=== PATIENT | female | born 1935 | race Caucasian/White ===

== ENCOUNTER → 2016-09-04 | Outpatient (CLI) | payer OTHER ==
[~2016-09-04] MED LIST: APRACLONIDINE 1% 0.1 ML OPH ONE; D-ME473S18 PO; OPHTHALMIC IRRIG SOLUTION 120 ML ONE; PHENYLephrine 10% 5 ML OPH ONE; PROPARACAINE 0.5% 15 ML OPH ONE; THYROID MEDICATION; TROPICAMIDE 1% 3 ML OPH ONE
== END | disposition home or self-care (01) ==
LOC: RAD 09:48
PROVIDERS: ATTEND Ophthalmology
DX: H26.9 Unspecified cataract (principal)
CPT/HCPCS: 66821; Z7610

== ENCOUNTER 2016-09-09 13:57 | Emergency (ER) | payer OTHER ==
[~2016-09-09] VITALS: Ht 152.4 cm; Wt 58.0 kg
[~2016-09-09 13:57] MED LIST changes: -APRACLONIDINE 1% 0.1 ML OPH ONE; -OPHTHALMIC IRRIG SOLUTION 120 ML ONE; -PHENYLephrine 10% 5 ML OPH ONE; -PROPARACAINE 0.5% 15 ML OPH ONE; -TROPICAMIDE 1% 3 ML OPH ONE
[2016-09-09 14:00] VITALS: Ht 152.4 cm; Wt 58.0 kg
[2016-09-09] MEDS ORDERED: MECLIZINE 12.5 MG TAB PO ONE (14:30)
[2016-09-09 14:47] LABS: ADD SCAN DIFF NO
[2016-09-09 14:49] LABS: ABNORMAL IP MESSAGE 1; HEMATOCRIT 37.8 % (37.0-47.0); HEMOGLOBIN 12.3 g/dl (12.0-16.0); MEAN CORPUSCULAR HEMOGLOBIN 33.9 pg (29.0-33.0); MEAN CORPUSCULAR HGB CONC 32.5 g/dl (32.0-37.0); MEAN CORPUSCULAR VOLUME 104.1 fl (82.0-101.0); MEAN PLATELET VOLUME 11.5 fl (7.4-10.4); PLATELET COUNT 74 10^3/UL (140-415); RED BLOOD COUNT 3.63 10^6/ul (4.20-5.40); RED CELL DISTRIBUTION WIDTH 13.1 % (11.5-14.5); WHITE BLOOD COUNT 5.3 10^3/ul (4.8-10.8)
--- NOTE | 2016-09-09 15:02 | RADRPT ---
PROCEDURE: XR Chest. CLINICAL INDICATION: Possible Stroke TECHNIQUE: Single frontal view of the chest was obtained. COMPARISON: Chest x-ray from 02/01/2016 FINDINGS: The heart and mediastinum are within normal limits. The aortic arch is calcified. There is stable mild prominence of interstitial markings, likely due to chronic / senescent changes. There are no focal infiltrates. There is no significant pleural effusion or pneumothorax. IMPRESSION: No focal infiltrates or effusions. Aortic atherosclerosis. RPTAT: EE Physician Haritha Date Time Electronically viewed and signed by Cyrus Keller Physician on 09/09/2016 15:01 /
[2016-09-09 15:04] LABS: INR 1.23; PROTIME 15.6 Sec (12.2-14.2); PT RATIO 1.2
[2016-09-09 15:05] LABS: PARTIAL THROMBOPLASTIN TIME 31.6 Sec (25.0-35.0)
--- NOTE | 2016-09-09 15:05 | RADRPT ---
PROCEDURE: CT Head without. CLINICAL INDICATION: Possible stroke. TECHNIQUE: The study was performed utilizing a multi-slice, multidetector CT scanner. Direct spira l 1 mm axial sections were obtained through the head without the use of intravenous contrast materia l. 1 or more of the following dose reduction techniques were utilized: Automated exposure control, adjustment of the mA and/or kV according to patient's size, iterative reconstruction technique. Co pallavi and sagittal reformations were obtained. The images were reviewed on a PACS workstation. RADIATION DOSE: CTDIvol: 43.9 mGyDLP: 630.2 mGy-cm COMPARISON: 03/06/2014 FINDINGS: There is no intracranial hemorrhage, extra-axial fluid collection, mass lesion, midline shift or hyd rocephalus. There is mild prominence of the cerebral sulci, lateral and third ventricles. There is mild periventricular and subcortical white matter hypodensity. There is mild arteriosclerotic calc ification of the parasellar internal carotid arteries. The waite-white matter differentiation is pre served. The basal cisterns are patent. The midline structures are intact. The orbits, calvarium a nd extracranial soft tissues are normal in appearance. The visualized paranasal sinuses, mastoid air cells and middle ear cavities are normally aerated. IMPRESSION: 1. No acute intracranial abnormality. No intracranial hemorrhage, extra-axial fluid collection, ma ss lesion or hydrocephalous. 2. Mild peripheral and central cerebral volume loss. 3. Mild periventricular and subcortical white matter hypodensity, likely related to chronic microan giopathic changes. 4. No CT evidence of infarct at this time. If clinical concern for infarct, MRI is recommended for further evaluation. The above findings were discussed with Patient's physician Elijah Tatum by telephone on 09/09/2016 3 :04:14 PM. RPTAT: HGAS .Randell Olivia MD, Date Time Electronically viewed and signed by .Randell Olivia MD, MD on 09/09/2016 15:05 .S/
[2016-09-09 15:27] LABS: BARBITURATES NEGATIVE (NEGATIVE); BENZODIAZEPINES NEGATIVE (NEGATIVE); CANNABINOIDS NEGATIVE (NEGATIVE); COCAINE NEGATIVE (NEGATIVE); OPIATES NEGATIVE (NEGATIVE)
[2016-09-09 15:28] LABS: ADD UMIC YES; URINE BILIRUBIN (Dip) NEGATIVE (NEGATIVE); URINE BLOOD (Dip) TRACE (NEGATIVE); URINE COLOR LT. YELLOW (YELLOW); URINE GLUCOSE (Dip) NEGATIVE (NEGATIVE); URINE KETONES (Dip) NEGATIVE (NEGATIVE); URINE LEUKOCYTE ESTERASE (Dip) 1+ (NEGATIVE); URINE NITRITE (Dip) NEGATIVE (NEGATIVE); URINE TOTAL PROTEIN (Dip) NEGATIVE (NEGATIVE); URINE UROBILINOGEN (Dip) 1.0 E.U./dL (0.1-1.0)
[2016-09-09 15:58] LABS: BACTERIA,URINE FEW; SQUAMOUS EPITHELIAL CELL,UR MANY; URINE RBCS 0-2 /HPF (0)
[2016-09-09] MEDS ORDERED: NITROFURANTOIN (SR) 100 MG CAP PO ONE (16:00)
[2016-09-09] MEDS ORDERED: NITR-58 PO (16:36)
[2016-09-09 16:38] LABS: CHLORIDE 113 mmol/L (97-110)
[2016-09-09 16:39] LABS: POTASSIUM 3.9 mmol/L (3.5-5.1); SODIUM 141 mmol/L (135-144)
[2016-09-09 16:40] LABS: EOSINOPHILS # 0.2 10^3/ul (0.0-0.5); LYMPHOCYTES # 1.9 10^3/ul (0.8-2.9); MONOCYTE # 0.4 10^3/ul (0.3-0.9); NEUTROPHIL # 2.9 10^3/ul (1.6-7.5)
[2016-09-09 16:41] LABS: CREATININE 0.57 mg/dl (0.44-1.00)
[2016-09-09 16:42] LABS: ANION GAP 5 (8-16); BLOOD UREA NITROGEN 11 mg/dl (7-20); CALCIUM 8.8 mg/dl (8.4-10.2); CARBON DIOXIDE 27 mmol/L (21-31); GLUCOSE 117 mg/dl (70-220)
[2016-09-09 16:54] LABS: TROPONIN-I < 0.012 ng/ml (0.00-0.12)
--- NOTE | 2016-09-09 17:06 | ERD ---
ER Documentation Chief Complaint Date/Time DATE: 09/09/16 TIME: 17:06 Chief Complaint dizziness and nausea today HPI Patient is a 72-year-old female with thyroid disease who presents with dizziness. She felt like the room was spinning. The symptoms started last night. The symptoms come and go. She feels better now. She was complaining of a headache to the top of her head. Upon review of old medical records this is the patient's 10th visit to the ER since 2012. ROS All systems reviewed and are negative except as per history of present illness. Medications Home Meds Active Scripts Nitrofurantoin Monohyd Macrocr* (Macrobid*) 100 Mg Capsr, 100 MG PO BID for 7 Days, CAP Prov:MARILYN COOK MD 09/09/16 Dextromethorphan Hb-Promethazine Hcl (Promethazine DM Syrup) 473 Ml Syrup, 5 ML PO Q6H Y for COUGH, #4 OZ Prov:ELLIOT FRIEDMAN PA-C 02/01/16 Reported Medications [Thyroid Medication] No Conflict Check 11/14/15 Allergies Allergies: Coded Allergies: Penicillins (Verified Allergy, Unknown, dizzy, 02/01/16) PMhx/Soc History of Surgery: Yes (CATARACT, GALL BLADDER) Anesthesia Reaction: No Hx Neurological Disorder: No Hx Respiratory Disorders: No Hx Cardiac Disorders: No Hx Psychiatric Problems: No Hx Miscellaneous Medical Probl: No Hx Alcohol Use: No Hx Substance Use: No Hx Tobacco Use: No Smoking Status: Never smoker FmHx Family History: No diabetes Physical Exam Vitals Vital Signs Date Time Temp Pulse Resp B/P Pulse Ox O2 Delivery O2 Flow Rate FiO2 09/09/16 17:15 98.2 64 16 118/59 100 Room Air 09/09/16 16:45 78 16 126/53 98 Room Air 09/09/16 14:00 98.1 82 18 137/63 99 Physical Exam Const: No acute distress Head: Atraumatic Eyes: Normal Conjunctiva ENT: Normal External Ears, Nose and Mouth. Neck: Full range of motion..~ No meningismus. Resp: Clear to auscultation bilaterally Cardio: Regular rate and rhythm, no murmurs Abd: Soft, non tender, non distended. Normal bowel sounds Skin: No petechiae or rashes Back: No midline or flank tenderness Ext: No cyanosis, or edema Neur: Awake and alert, no slurred speech, cranial nerves II through XII intact, strength is 5 out of 5 in all 4 extremities, gait is normal Psych: Normal Mood and Affect Result Diagram: 09/09/16 1429 09/09/16 1550 Results 24 hrs Laboratory Tests Test 09/09/16 14:20 09/09/16 14:29 09/09/16 15:50 Urine Color LT. YELLOW Urine Clarity SLIGHTLY CLOUDY Urine pH 6.0 Urine Specific Belt <=1.005 Urine Ketones NEGATIVE Urine Nitrite NEGATIVE Urine Bilirubin NEGATIVE Urine Urobilinogen 1.0 E.U./dL Urine Leukocyte Esterase 1+ Urine Microscopic RBC 0-2/HPF Urine Microscopic WBC 5-10/HPF Urine Squamous Epithelial Cells MANY Urine Bacteria FEW Urine Hemoglobin TRACE Urine Glucose NEGATIVE% Urine Total Protein NEGATIVE Urine Opiates Screen NEGATIVE Urine Barbiturates NEGATIVE Urine Amphetamines Screen NEGATIVE Urine Benzodiazepines Screen NEGATIVE Urine Cocaine Screen NEGATIVE Urine Cannabinoids NEGATIVE White Blood Count 5.310^3/ul Red Blood Count 3.6310^6/ul Hemoglobin 12.3g/dl Hematocrit 37.8% Mean Corpuscular Volume 104.1fl Mean Corpuscular Hemoglobin 33.9pg Mean Corpuscular Hemoglobin Concent 32.5g/dl Red Cell Distribution Width 13.1% Platelet Count 7410^3/UL Mean Platelet Volume 11.5fl Neutrophils % 54.0% Lymphocytes % 35.0% Monocytes % 7.0% Eosinophils % 4.0% Neutrophils # 2.910^3/ul Lymphocytes # 1.910^3/ul Monocytes # 0.410^3/ul Eosinophils # 0.210^3/ul Prothrombin Time 15.6Sec Prothrombin Time Ratio 1.2 INR International Normalized Ratio 1.23 Activated Partial Thromboplast Time 31.6Sec Sodium Level 141mmol/L Potassium Level 3.9mmol/L Chloride Level 113mmol/L Carbon Dioxide Level 27mmol/L Anion Gap 5 Blood Urea Nitrogen 11mg/dl Creatinine 0.57mg/dl Glucose Level 117mg/dl Hemoglobin A1c 5.2% Calcium Level 8.8mg/dl Troponin I < 0.012ng/ml Current Medications Medications (Trade) Dose Ordered Sig/Gio Route PRN Reason Start Time Stop Time Status Last Admin Dose Admin Meclizine HCl (Antivert) 25 mg ONCE ONCE PO 09/09/16 14:30 09/09/16 14:31 DC 09/09/16 14:38 Nitrofurantoin Macrocrystals (Macrobid) 100 mg ONCE ONCE PO 09/09/16 16:00 09/09/16 16:01 DC 09/09/16 16:03 Procedures/[facility] EKG read by me: Rate/Rhythm: Regular rate and rhythm at a rate of 68 Intervals: Normal Impression: No evidence of ischemia or arrhythmia CT brain scan shows no acute process per radiology. Patient is a 80-year-old female presents with dizziness. The patient was found to have acute cystitis and will be treated with Macrobid for a one-week course. At this point I doubt stroke. CT scan of the brain showed no intra-cranial mass or hemorrhage. EKG shows no signs of ischemia. Laboratory studies were basically normal. I doubt stroke, meningitis, or other serious etiology and I believe outpatient management is appropriate but the patient should follow-up with the primary doctor within 24-48 hours for reevaluation. Departure Diagnosis: Primary Impression: Cystitis Additional Impression: Dizziness Condition: Fair Patient Instructions: Cystitis, Dizziness, Unk Cause Additional Instructions: Llame al doctor MAANA y adelita raiza SARKIS PARA DENTRO DE 1-2 CRUZ.Dgale a la secretaria que nosotros le instruimos hacer esta sarkis.Avise o llame si kaba condicin se empeora antes de la sarkis. Regresa aqui si peor o no mejor. MARILYN COOK MD September 09, 2016 17:06
[2016-09-09 17:15] VITALS: BP 118/59; PULSE 64; RESP 16; TEMP 98.2
== END 2016-09-09 17:23 | disposition home or self-care (01) ==
LOC: E/R 13:57
DX: N30.90 Cystitis, unspecified without hematuria (principal); R40.2252 Coma scale, best verbal response, oriented, at arrival to emergency department; R40.2142 Coma scale, eyes open, spontaneous, at arrival to emergency department; R40.2362 Coma scale, best motor response, obeys commands, at arrival to emergency department; R07.9 Chest pain, unspecified
CPT/HCPCS: 36415; 70450; 71010; 80048; 80307; 81001; 83036; 84484; 85025; 85610; 85730; 93005; Z7502; Z7610

== ENCOUNTER 2017-01-30 09:06 | Inpatient (IN) | payer OTHER ==
[~2017-01-30] VITALS: Ht 152.4 cm; Wt 60.0 kg
[2017-01-30] VITALS (25 sets, daily range): BP systolic 115–168; BP diastolic 52–75; PULSE 69–102; RESP 12–28; Ht 152.4 cm; Wt 60.0 kg
--- NOTE | 2017-01-30 08:55 | HPN ---
Date/Time of Note Date/Time of Note DATE: 01/30/17 TIME: 08:55 Interval H&P Admission Note Pt. seen H&P reviewed: No system changes CHEPE CEBALLOS MD Jan 30, 2017 08:55
[~2017-01-30 09:06] MED LIST changes: +CEFAZOLIN 1 GM INJ ONE; +EPHEDrine SULFATE 50 MG/5 ML SYG ONE; +NITR-58 PO
[2017-01-30] MEDS ORDERED: LATA2.5D2 BOTH EYES (09:39)
[2017-01-30] MEDS ORDERED: BRIM15DR7 BOTH EYES (09:40)
[2017-01-30] MEDS ORDERED: LEVO112T42 PO (09:40)
[2017-01-30] MEDS ORDERED: MELO-210 PO (09:41)
[2017-01-30] MEDS ORDERED: morphine SULFATE/PF (10 MG/10 ML) INJ ONE (10:46)
[2017-01-30] MEDS ORDERED: MIDAZOLAM 1 MG/ML 2 ML INJ ONE (10:46)
[2017-01-30] MEDS ORDERED: PROPOFOL 20 ML ONE (10:46)
[2017-01-30] MEDS ORDERED: METOCLOPRAMIDE 10 MG INJ ONE ×2 (10:46→12:49)
[2017-01-30] MEDS ORDERED: ROPIVACAINE 0.5 % 30 ML VIAL ONE (10:46)
[2017-01-30] MEDS ORDERED: ONDANSETRON 4 MG INJ ONE (10:46)
[2017-01-30] MEDS ORDERED: TRANEXAMIC ACID 600 MG in SOD CHLORIDE 0.9% 100 ML IVPB ONE ×2 (11:00→15:00)
[2017-01-30] MEDS ORDERED: POLYMYXIN/BACITRACIN 1L IRRIG ONE (11:21)
[2017-01-30] MEDS ORDERED: POLYMYXIN B 500000 UNIT INJ ONE (11:21)
[2017-01-30] MEDS ORDERED: BACITRACIN 50000 UNITS INJ ONE (11:23)
[2017-01-30] MEDS ORDERED: hydrALAzine 20 MG INJ ONE (12:44)
[2017-01-30] MEDS ORDERED: ONDANSETRON 4 MG INJ IV PRN (13:30)
[2017-01-30] MEDS ORDERED: MEPERIDINE 25 MG INJ IV PRN (13:30)
[2017-01-30] MEDS ORDERED: LABETALOL HCL 20MG INJ IV PRN (13:30)
[2017-01-30] MEDS ORDERED: HYDROmorphONE (0.2 MG/ML) 10ML SYG IV PRN ×3 (13:30)
[2017-01-30] MEDS ORDERED: EPHEDrine SULFATE 50 MG/5 ML SYG IV PRN (13:30)
[2017-01-30] MEDS ORDERED: DIPHENHYDRAMINE 50 MG INJ IV PRN (13:30)
[2017-01-30] MEDS ORDERED: METOCLOPRAMIDE 10 MG INJ IV PRN (13:30)
[2017-01-30] MEDS ORDERED: hydrALAzine 20 MG INJ IV PRN (13:30)
--- NOTE | 2017-01-30 14:31 | OPR ---
Date/Time of Note Date/Time of Note DATE: 01/30/17 TIME: 14:28 Operative Report Preoperative Diagnosis See below Postoperative Diagnosis Below Surgeon see signature line Traffic Coordinator See below Anesthesia Type: spinal Estimated Blood Loss: 100 - 150 ml's Transfusion none Specimen Bone Grafts/Implants [place] triathlon implants Complications none Procedure Description DATE OF OPERATION: January 30, 2017 PREOPERATIVE DIAGNOSIS: [Left] knee osteoarthritis. POSTOPERATIVE DIAGNOSIS: Left knee osteoarthritis. OPERATION PERFORMED: Left total knee replacement. SURGEON: Todd Ceballos MD CDL BULK DRIVER: Janell Martinez ANESTHESIOLOGIST: Payton Leone ANESTHESIA: General endotracheal anesthesia with spinal anesthetic and an adductor canal block. ESTIMATED BLOOD LOSS: 150 cc Implants used: [place] [employer] INDICATIONS FOR PROCEDURE: This is a 81-year-old female who has had progressive pain in the left knee. The patient has failed nonoperative treatment and now presents for elective total knee replacement. Risks and benefits were discussed with the patient, risks including but not limited to infection, bleeding, blood clots, dislocation, fracture, knee stiffness, nerve damage, blood vessel damage, along with other medical, anesthetic and surgical complications were discussed. Informed consent was obtained. DESCRIPTION OF PROCEDURE: The patient's correct extremity was identified in the preoperative area. The patient was brought back to the operating room where a spinal anesthetic was placed followed by an adductor canal block. The correct extremity was then prepped and draped in the standard sterile manner. A timeout was performed. Esmarch was used to exsanguinate. The thigh tourniquet was inflated to 250 mmHg. I then made a standard midline incision for approaching the knee. I went through skin and subcutaneous tissue, made a medial parapatellar arthrotomy. Then, flexed the knee and introduced an intramedullary alignment guide. Distal femoral cut was made and then the extramedullary alignment guide was used to make the tibial cut. Flexion and extension gaps were checked. There were symmetric. The knee went from full extension to full flexion. I then turned my attention to the patella. I used an [id number] mill type cutting guide, cut the patellar to appropriate thickness and sized the patella. I then trialed the patella. The patella tracked well without any external pressure. I then made the peg holes for the femoral trial. Punched the tibia. I took out all trial components. Thoroughly irrigated the bony surfaces, dried them with a lap sponge. I then proceeded to cement the tibia, femur and patellar components. A trial insert was used till the cement hardened. After the cement hardened, I thoroughly irrigted the knee. The knee was well balanced. I then let down the tourniquet, obtained adequate hemostasis. I thoroughly irrigated the knee. I then impacted the appropriate all poly insert until it locked into place and I had full range of motion with just a jog of opening with varus and valgus stress. I then turned my attention to closure. I closed the medial parapatellar arthrotomy with interrupted #1 Vicryl, subcutaneous tissue was closed with 2-0 Vicryl, skin with aidee. Dry sterile dressings were applied. The patient had good perfusion to her foot with a 2+ dorsalis pedis pulse. She was then extubated and transported to recovery in stable condition. TODD CEBALLOS MD Jan 30, 2017 14:31
[2017-01-30] MEDS ORDERED: NALOXONE (0.4 MG/ML) INJ IV PRN (15:00)
[2017-01-30] MEDS ORDERED: oxyCODONE 5 MG TAB PO PRN (15:00)
[2017-01-30] MEDS ORDERED: DOCUSATE SODIUM 100 MG CAP PO ONE (15:00)
[2017-01-30] MEDS: CEFAZOLIN 1 GM/50 ML (PMX) 50 ML IVPB SCH ×2 (15:30→22:53)
--- NOTE | 2017-01-30 15:54 | RADRPT ---
PROCEDURE: XR Knee. CLINICAL INDICATION: Status post knee replacement TECHNIQUE: AP and lateral view of the left knee were obtained. The images reviewed on a PACS work station. COMPARISON: December 28, 2012 FINDINGS: Complete left knee replacement is identified. Prosthetic components are in appropriate position and alignment. No fractures or destructive lesions are observed. Surgical drain is seen in the knee. Soft tissue air is procedural in nature. IMPRESSION: Status post left knee replacement. Prosthetic components are in appropriate position and alignment. RPTAT: AA .Nicolás Hood MD, MD Date Time Electronically viewed and signed by .Nicolás Hood MD, MD on 01/30/2017 15:54 .P/
[2017-01-30] MEDS: ONDANSETRON 4 MG INJ IV SCH ×2 (17:44→22:53)
[2017-01-30] MEDS: LACTATED RINGER'S 1,000 ML IV SCH (18:04)
[2017-01-30] MEDS: LATANOPROST 0.005% 2.5 ML OPH BOTH EYES SCH (23:59)
[2017-01-30] MEDS: BRIMONIDINE 0.2% 5 ML BTL BOTH EYES SCH (23:59)
[2017-01-31 00:31] VITALS: BP 129/63; RESP 19
[2017-01-31 02:27] VITALS: BP 145/64; RESP 19
[2017-01-31] MEDS: ONDANSETRON 4 MG INJ IV SCH ×2 (03:04→08:34)
[2017-01-31] MEDS: oxyCODONE 5 MG TAB PO PRN ×6 (03:13→20:39)
--- NOTE | 2017-01-31 03:18 | HP ---
DATE OF ADMISSION: 01/30/2017 CHIEF COMPLAINT AND HISTORY OF PRESENT ILLNESS: The patient is a 81-year-old female who is well kn own to me from previous admission back in 2016 when she underwent laparoscopic cholecystectomy and w as incidentally found to have cirrhosis of liver on liver wedge biopsy. The patient also has histor y of hypothyroidism. The patient was being followed by a medical billing clerk as an outpatient as well as h er PMD. The patient has negative ESTEPHANIE screen negative, HIV negative, hepatitis B and C. I met with the patient's daughter today and I found out that the patient used to drink alcohol when she was you ng. The patient used to drink a special form of alcohol called [place] which is even stronger than T equila; that probably is the cause of her cirrhosis of the liver. Patient was seen by Dr. Carpenter as an outpatient due to osteoarthritis of the left knee and underwent left total knee replacement. Patient did have preoperative thrombocytopenia and got clearance from medical billing clerk. The patient di d have postoperative vomiting for which patient received Zofran. The patient denied any hematemesis , no reported ecchymosis. No reported petechial hemorrhage. The patient is breathing comfortably. No reported chest pain or shortness of breath. PAST MEDICAL HISTORY: The patient is status post laparoscopic cholecystectomy and also has history of hypothyroidism. ALLERGIES: PENICILLIN. PAST SURGICAL HISTORY: Patient is status post laparoscopic cholecystectomy as well as right catarac t repair by Dr. Morgan. SOCIAL HISTORY: No history of smoking. History of alcohol abuse as listed above; the patient drank from age 22 to 42 as per the patient's daughter, Trixie. PHYSICAL EXAMINATION: GENERAL: The patient is breathing comfortably. VITAL SIGNS: Temperature 98.2, pulse 95, respirations 14, blood pressure 143/64, O2 saturation 98% on 2 L nasal cannula. HEENT: No eye discharge or redness. NECK: Supple. No mass, no thyromegaly. CHEST: Fairly clear. CARDIOVASCULAR: S1, S2 normal. No murmur. ABDOMEN: Soft, nondistended, nontender. EXTREMITIES: No ankle edema. NEUROLOGIC: No gross focal deficit, although exam was limited due to recent surgery. LABORATORY DATA: TSH 0.1, free T4 1. Sodium 141, potassium 3.9, BUN 11, creatinine 0.5, glucose 94 , AST 58, ALT 49, bilirubin 1.8, cardiolipin antibodies negative, antiphospholipid antibody is negat dionisio. Albumin 3.3. INR 1.2, platelets 81. Hemoglobin 12.8, WBC 4.9. IMPRESSION: 1. Left knee osteoarthritis status post left total knee replacement. 2. Hypothyroidism. 3. 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 PLAN: Patient is admitted on medical floor. Patient has been started on ringer lactate. The patie nt will be given Protonix. The patient will be continued on IV Zofran p.r.n. basis. Will hold off on Lovenox for DVT prophylaxis, will substitute it with Eliquis 2.5 mg b.i.d. for a total of 12 days . Will start it 24 hours after surgery. Plan of care discussed with patient's daughter. We will c radha to monitor her CBC. Will continue to monitor her closely. Dictated By: GURMEET DELCID/DARION Conf#: [id number] DID#: [id number]
[2017-01-31] MEDS: LACTATED RINGER'S 1,000 ML IV SCH ×4 (04:00→16:07)
[2017-01-31 05:18] LABS: BASOPHILS % 0.1 % (0.0-2.0); HEMATOCRIT 34.7 % (37.0-47.0); HEMOGLOBIN 10.9 g/dl (12.0-16.0); LYMPHOCYTES # 0.8 10^3/ul (0.8-2.9); LYMPHOCYTES % 8.5 % (15.0-51.0); MEAN CORPUSCULAR HGB CONC 31.4 g/dl (32.0-37.0); MEAN CORPUSCULAR VOLUME 108.1 fl (82.0-101.0); MEAN PLATELET VOLUME 10.5 fl (7.4-10.4); MONOCYTE # 0.5 10^3/ul (0.3-0.9); MONOCYTES % 5.7 % (0.0-11.0); NEUTROPHIL # 8.1 10^3/ul (1.6-7.5); NEUTROPHILS % 85.3 % (39.0-77.0); PLATELET COUNT 126 10^3/UL (140-415); RED BLOOD COUNT 3.21 10^6/ul (4.20-5.40); RED CELL DISTRIBUTION WIDTH 13.2 % (11.5-14.5); WHITE BLOOD COUNT 9.5 10^3/ul (4.8-10.8)
[2017-01-31 05:57] LABS: CALCIUM 8.8 mg/dl (8.4-10.2); CREATININE 0.62 mg/dl (0.44-1.00); POTASSIUM 4.9 mmol/L (3.5-5.1)
--- NOTE | 2017-01-31 06:00 | PN ---
Date/Time of Note Date/Time of Note DATE: 01/31/17 TIME: 05:57 Assessment/Plan VTE Prophylaxis VTE Prophylaxis Intervention: anti-embolic stocking, other Lines/Catheters IV Catheter Type (from Nrsg): Peripheral IV Urinary Cath still in place: No Subjective 24 Hr Interval Summary Free Text/Dictation Anesthesia note: A 81 year old female s/p left knee arthroscopy under GA, duramorph POD #1 is doing fine, no pain, itching, headache. had zofran at 3 am N/V is controoled now. no back pain . will folow with surgery and hospitalist Exam/Review of Systems Vital Signs Vitals Vital Signs Date Time Temp Pulse Resp B/P Pulse Ox O2 Delivery O2 Flow Rate FiO2 01/31/17 02:27 98.4 79 19 145/64 100 01/30/17 20:00 Nasal Cannula 2.0 Intake and Output 01/30/17 01/30/17 01/31/17 15:00 23:00 07:00 Intake Total 1300 ml 120 ml 170 ml Output Total 550 ml 550 ml 400 ml Balance 750 ml -430 ml -230 ml Results Result Diagram: 01/31/17 0445 Results 24 hrs Laboratory Tests Test 01/31/17 04:45 White Blood Count 9.5 # Red Blood Count 3.21 L Hemoglobin 10.9 L Hematocrit 34.7 L Mean Corpuscular Volume 108.1 H Mean Corpuscular Hemoglobin 34.0 H Mean Corpuscular Hemoglobin Concent 31.4 L Red Cell Distribution Width 13.2 Platelet Count 126 #L Mean Platelet Volume 10.5 H Neutrophils % 85.3 H Lymphocytes % 8.5 L Monocytes % 5.7 Eosinophils % 0.0 Basophils % 0.1 Nucleated Red Blood Cells % 0.0 Neutrophils # 8.1 H Lymphocytes # 0.8 Monocytes # 0.5 Eosinophils # 0.0 Basophils # 0.0 Nucleated Red Blood Cells # 0.0 Medications Medications Current Medications Oxycodone HCl (Roxicodone) 10 mg Q3H PRN PO PAIN LEVEL 4-7 Last administered on 01/31/17t 03:30; Admin Dose 10 MG; Start 01/30/17 at 15:00 Oxycodone HCl (Roxicodone) 5 mg Q3H PRN PO PAIN LEVEL 1-3; Start 01/30/17 at 15:00 Ondansetron HCl 4 mg 4 mg Q6H IV Last administered on 01/31/17 03:04; Admin Dose 4 MG; Start 01/30/17 at 15:00; Stop 01/31/17 at 09:01 Cefazolin Sodium (Ancef 1 Gm/50 ml (Pmx)) 50 ml @ 100 mls/hr Q8H IVPB Last administered on 01/30/17 22:53; Admin Dose 100 MLS/HR; Start 01/30/17 at 15: 00; Stop 01/31/17 at 07:29 Pantoprazole (Protonix Tab) 40 mg DAILY@06 PO ; Start 02/01/17 at 06:00 Docusate Sodium (Colace) 200 mg BID PO ; Start 01/31/17 at 09:00; Stop at 08:59 Senna/Docusate Sodium (Senokot-S) 2 tab BID PRN PO CONSTIPATION; Start at 15:00 Magnesium Hydroxide (Milk Of Mag) 30 ml HS PRN PO CONSTIPATION; Start at 15:00 Naloxone HCl 0.2 mg 0.2 mg Q2M PRN IV DECREASED REPIRATORY RATE; Start at 15:00 Lactated Ringer's (Lr) 1,000 ml @ 100 mls/hr Q10H IV Last administered on 18:04; Admin Dose 100 MLS/HR; Start 01/30/17 at 18:00 Apixaban (Eliquis) 2.5 mg BID PO ; Start 01/31/17 at 20:00; Stop 02/12/17 at 19 :59 Brimonidine Tartrate (Alphagan 0.2%) 1 drop BID BOTH EYES Last administered on 01/30/17 23:59; Admin Dose 1 DROP; Start 01/30/17 at 21:00 Latanoprost (Xalatan) 1 drop BID BOTH EYES Last administered on 01/30/17 23: 59; Admin Dose 1 DROP; Start 01/30/17 at 21:00 Levothyroxine Sodium (Synthroid) 112 mcg DAILY@06 PO ; Start 01/31/17 at 06:00 ACE BABB MD Jan 31, 2017 06:00
[2017-01-31] MEDS: LEVOTHYROXINE 112 MCG TAB PO SCH (06:12)
[2017-01-31] MEDS: CEFAZOLIN 1 GM/50 ML (PMX) 50 ML IVPB SCH (06:15)
[2017-01-31 07:51] VITALS: BP 132/60; RESP 18
[2017-01-31] MEDS: LATANOPROST 0.005% 2.5 ML OPH BOTH EYES SCH ×2 (08:34→20:34)
[2017-01-31] MEDS: BRIMONIDINE 0.2% 5 ML BTL BOTH EYES SCH ×2 (08:34→20:34)
[2017-01-31] MEDS: DOCUSATE SODIUM 100 MG CAP PO SCH ×2 (08:34→20:34)
[2017-01-31] MEDS ORDERED: ENOXAPARIN 30 MG/0.3 ML SYG SC SCH (09:00)
--- NOTE | 2017-01-31 12:13 | PN ---
Date/Time of Note Date/Time of Note DATE: 01/31/17 TIME: 12:11 Assessment/Plan Lines/Catheters IV Catheter Type (from Nrsg): Peripheral IV [place] in Place (from Nrsg): No Assessment/Plan Assessment/Plan POD 1 s/p Left TKA doing well OOB with PT, CPM Eliquis, SCD's for DVT prophylaxis Has some nausea, liquids only today Incentive spirometer d/c montgomery Subjective 24 Hr Interval Summary Complaining of mild pain. Exam/Review of Systems Vital Signs Vitals Vital Signs Date Time Temp Pulse Resp B/P Pulse Ox O2 Delivery O2 Flow Rate FiO2 01/31/17 08:45 Nasal Cannula 2.0 01/31/17 07:51 97.7 85 18 132/60 100 Intake and Output 01/30/17 01/30/17 01/31/17 15:00 23:00 07:00 Intake Total 1300 ml 120 ml 220 ml Output Total 550 ml 550 ml 600 ml Balance 750 ml -430 ml -380 ml Exam Free Text/Dictation Dressing c/d/i. Calf soft Intact motor and sensory function in foot. Foot warm. Results Result Diagram: 01/31/17 0445 01/31/17 0430 CHEPE CEBALLOS MD Jan 31, 2017 12:13
[2017-01-31 16:21] VITALS: BP 140/65; RESP 18
[2017-01-31 19:25] VITALS: BP 118/58; RESP 18
[2017-01-31] MEDS: APIXABAN 5 MG TABLET PO SCH (20:34)
[2017-02-01 02:00] VITALS: BP 145/64; RESP 20
[2017-02-01] MEDS: LACTATED RINGER'S 1,000 ML IV SCH ×3 (02:52→13:12)
[2017-02-01 05:25] LABS: BASOPHILS % 0.3 % (0.0-2.0); EOSINOPHILS # 0.1 10^3/ul (0.0-0.5); EOSINOPHILS % 0.8 % (0.0-7.0); HEMATOCRIT 33.7 % (37.0-47.0); HEMOGLOBIN 10.8 g/dl (12.0-16.0); LYMPHOCYTES # 1.9 10^3/ul (0.8-2.9); LYMPHOCYTES % 17.2 % (15.0-51.0); MEAN CORPUSCULAR VOLUME 109.1 fl (82.0-101.0); MEAN PLATELET VOLUME 10.6 fl (7.4-10.4); MONOCYTE # 1.2 10^3/ul (0.3-0.9); MONOCYTES % 10.5 % (0.0-11.0); NEUTROPHIL # 7.8 10^3/ul (1.6-7.5); NEUTROPHILS % 70.8 % (39.0-77.0); PLATELET COUNT 113 10^3/UL (140-415); RED BLOOD COUNT 3.09 10^6/ul (4.20-5.40); RED CELL DISTRIBUTION WIDTH 13.2 % (11.5-14.5); WHITE BLOOD COUNT 11.1 10^3/ul (4.8-10.8)
[2017-02-01] MEDS: PANTOPRAZOLE (EC) 40 MG TAB PO SCH (05:57)
[2017-02-01 05:58] LABS: CALCIUM 8.6 mg/dl (8.4-10.2); CREATININE 0.74 mg/dl (0.44-1.00); POTASSIUM 4.9 mmol/L (3.5-5.1)
[2017-02-01] MEDS: LEVOTHYROXINE 112 MCG TAB PO SCH (05:58)
[2017-02-01 07:57] VITALS: BP 123/55; RESP 16
[2017-02-01] MEDS: LATANOPROST 0.005% 2.5 ML OPH BOTH EYES SCH ×2 (08:26→20:00)
[2017-02-01] MEDS: DOCUSATE SODIUM 100 MG CAP PO SCH ×2 (08:26→20:00)
[2017-02-01] MEDS: APIXABAN 5 MG TABLET PO SCH ×2 (08:26→20:00)
[2017-02-01] MEDS: BRIMONIDINE 0.2% 5 ML BTL BOTH EYES SCH ×2 (08:26→20:00)
[2017-02-01] MEDS: oxyCODONE 5 MG TAB PO PRN (10:24)
--- NOTE | 2017-02-01 14:04 | PN ---
Date/Time of Note Date/Time of Note DATE: 02/01/17 TIME: 13:56 Assessment/Plan VTE Prophylaxis VTE Prophylaxis Intervention: other Lines/Catheters IV Catheter Type (from Nrs): Peripheral IV Urinary Cath still in place: No Assessment/Plan Assessment/Plan 1. Left knee osteoarthritis status post left total knee replacement. -per Ortho -IV Zofran p.r.n. basis. 2. Hypothyroidism. 3. 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 4. Protonix for GI prophylaxis 5. Eliquis 2.5 mg b.i.d. for a total of 12 days for DVT prophylaxis Plan of care discussed with Dr Santiago/staff/ patient's daughter Subjective 24 Hr Interval Summary Free Text/Dictation afebrile, Left knee cpm noted, c/o left knee pain on movement, daughter at bed sude- all Qs answered, dw staff Respiratory: no complaints Gastrointestinal: no complaints Genitourinary: no complaints Musculoskeletal: bone/joint pain Skin: no complaints Neurologic: no complaints Exam/Review of Systems Vital Signs Vitals Vital Signs Date Time Temp Pulse Resp B/P Pulse Ox O2 Delivery O2 Flow Rate FiO2 02/01/17 08:00 Nasal Cannula 2.0 02/01/17 07:57 99.3 89 16 123/55 94 Intake and Output 01/31/17 01/31/17 02/01/17 15:00 23:00 07:00 Intake Total 1400 ml 1200 ml Output Total 100 ml 100 ml Balance 1300 ml 1100 ml Exam Constitutional: alert, oriented Psych: nl mood/affect Cardiovascular: nl pulses, other (s1s2) Gastrointestinal: non-tender, soft Musculoskeletal: other (sp left knee replacemen- DDI,CSM intact, wond drainage noted) Results Result Diagram: 02/01/174 02/01/174 Results 24 hrs Laboratory Tests Test 02/01/17 04:44 White Blood Count 11.1 H Red Blood Count 3.09 L Hemoglobin 10.8 L Hematocrit 33.7 L Mean Corpuscular Volume 109.1 H Mean Corpuscular Hemoglobin 35.0 H Mean Corpuscular Hemoglobin Concent 32.0 Red Cell Distribution Width 13.2 Platelet Count 113 L Mean Platelet Volume 10.6 H Neutrophils % 70.8 Lymphocytes % 17.2 Monocytes % 10.5 Eosinophils % 0.8 Basophils % 0.3 Nucleated Red Blood Cells % 0.0 Neutrophils # 7.8 H Lymphocytes # 1.9 Monocytes # 1.2 H Eosinophils # 0.1 Basophils # 0.0 Nucleated Red Blood Cells # 0.0 Sodium Level 138 Potassium Level 4.9 Chloride Level 105 Carbon Dioxide Level 33 H Anion Gap 5 L Blood Urea Nitrogen 13 Creatinine 0.74 Glucose Level 89 # Calcium Level 8.6 Medications Medications Current Medications Oxycodone HCl (Roxicodone) 10 mg Q3H PRN PO PAIN LEVEL 4-7 Last administered on 02/01/17 10:24; Admin Dose 10 MG; Start 01/30/17 at 15:00 Oxycodone HCl (Roxicodone) 5 mg Q3H PRN PO PAIN LEVEL 1-3; Start 01/30/17 at 15:00 Pantoprazole (Protonix Tab) 40 mg DAILY@06 PO Last administered on 02/01/17 05:57; Admin Dose 40 MG; Start 02/01/17 at 06:00 Docusate Sodium (Colace) 200 mg BID PO Last administered on 02/01/17 08:26; Admin Dose 200 MG; Start 01/31/17 at 09:00; Stop 02/03/17 at 08:59 Senna/Docusate Sodium (Senokot-S) 2 tab BID PRN PO CONSTIPATION; Start at 15:00 Magnesium Hydroxide (Milk Of Mag) 30 ml HS PRN PO CONSTIPATION; Start at 15:00 Naloxone HCl 0.2 mg 0.2 mg Q2M PRN IV DECREASED REPIRATORY RATE; Start at 15:00 Lactated Ringer's (Lr) 1,000 ml @ 100 mls/hr Q10H IV Last administered on 13:12; Admin Dose 100 MLS/HR; Start 01/30/17 at 18:00 Apixaban (Eliquis) 2.5 mg BID PO Last administered on 02/01/17 08:26; Admin Dose 2.5 MG; Start 01/31/17 at 20:00; Stop 02/12/17 at 19:59 Brimonidine Tartrate (Alphagan 0.2%) 1 drop BID BOTH EYES Last administered on 02/01/17 08:26; Admin Dose 1 DROP; Start 01/30/17 at 21:00 Latanoprost (Xalatan) 1 drop BID BOTH EYES Last administered on 02/01/17 08: 26; Admin Dose 1 DROP; Start 01/30/17 at 21:00 Levothyroxine Sodium (Synthroid) 112 mcg DAILY@06 PO Last administered on 02/01 05:58; Admin Dose 112 MCG; Start 01/31/17 at 06:00 TERRA LI Feb 01, 2017 14:04
[2017-02-01 15:16] VITALS: BP 131/60; RESP 18
[2017-02-01 19:30] VITALS: BP 130/63; RESP 20
[2017-02-02 02:25] VITALS: BP 122/58; RESP 20
[2017-02-02] MEDS: LACTATED RINGER'S 1,000 ML IV SCH ×2 (04:56→16:00)
[2017-02-02] MEDS: PANTOPRAZOLE (EC) 40 MG TAB PO SCH (04:56)
[2017-02-02] MEDS: LEVOTHYROXINE 112 MCG TAB PO SCH (04:56)
[2017-02-02 06:06] LABS: BASOPHILS % 0.4 % (0.0-2.0); EOSINOPHILS # 0.2 10^3/ul (0.0-0.5); EOSINOPHILS % 2.6 % (0.0-7.0); HEMATOCRIT 34.3 % (37.0-47.0); HEMOGLOBIN 11.2 g/dl (12.0-16.0); LYMPHOCYTES # 2.8 10^3/ul (0.8-2.9); LYMPHOCYTES % 30.3 % (15.0-51.0); MEAN CORPUSCULAR HGB CONC 32.7 g/dl (32.0-37.0); MEAN CORPUSCULAR VOLUME 107.2 fl (82.0-101.0); MEAN PLATELET VOLUME 10.8 fl (7.4-10.4); MONOCYTES % 10.8 % (0.0-11.0); NEUTROPHIL # 5.2 10^3/ul (1.6-7.5); NEUTROPHILS % 55.6 % (39.0-77.0); PLATELET COUNT 110 10^3/UL (140-415); RED CELL DISTRIBUTION WIDTH 12.8 % (11.5-14.5); WHITE BLOOD COUNT 9.3 10^3/ul (4.8-10.8)
[2017-02-02 06:41] LABS: CALCIUM 8.1 mg/dl (8.4-10.2); CREATININE 0.67 mg/dl (0.44-1.00); POTASSIUM 4.1 mmol/L (3.5-5.1)
[2017-02-02 07:00] VITALS: BP 126/60; RESP 20
[2017-02-02] MEDS: APIXABAN 5 MG TABLET PO SCH ×2 (08:53→20:10)
[2017-02-02] MEDS: BRIMONIDINE 0.2% 5 ML BTL BOTH EYES SCH ×2 (08:53→20:09)
[2017-02-02] MEDS: DOCUSATE SODIUM 100 MG CAP PO SCH ×2 (08:54→20:09)
[2017-02-02] MEDS: LATANOPROST 0.005% 2.5 ML OPH BOTH EYES SCH ×2 (08:57→20:09)
[2017-02-02] MEDS: MAGNESIUM HYDROXIDE 30ML CUP PO PRN (08:57)
--- NOTE | 2017-02-02 13:04 | PN ---
Date/Time of Note Date/Time of Note DATE: 02/02/17 TIME: 13:03 Assessment/Plan Lines/Catheters IV Catheter Type (from Nrsg): Peripheral IV Casanova in Place (from Nrsg): No Assessment/Plan Assessment/Plan Doing well Discharge to home today if cleared by PT Bijan for 2 weeks CPM for home use. Subjective 24 Hr Interval Summary Complaining of some pain with ambulation. Exam/Review of Systems Vital Signs Vitals Vital Signs Date Time Temp Pulse Resp B/P Pulse Ox O2 Delivery O2 Flow Rate FiO2 02/02/17 07:00 98.9 69 20 126/60 97 02/01/17 22:33 Nasal Cannula 2.0 Intake and Output 02/01/17 02/01/17 02/02/17 15:00 23:00 07:00 Intake Total 800 ml 760 ml 1525 ml Output Total 100 ml 1080 ml Balance 800 ml 660 ml 445 ml Exam Free Text/Dictation Incision c.d.i. No erythema Calf soft and non tender NVI. Foot warm Results Result Diagram: 02/02/17 0449 02/02/17 0449 CHEPE CEBALLOS MD Feb 02, 2017 13:04
[2017-02-02 14:00] VITALS: BP 126/58; RESP 20
--- NOTE | 2017-02-02 17:40 | PN ---
Date/Time of Note Date/Time of Note DATE: 02/02/17 TIME: 17:34 Assessment/Plan VTE Prophylaxis VTE Prophylaxis Intervention: SCD's Lines/Catheters IV [facility] Type [facility] Saline Lock Urinary Cath still in place: No Assessment/Plan Chief Complaint/Hosp Course Pt denies fever, slow progress with PT, ARU eval pending. Problems: Assessment/Plan 1. Left knee osteoarthritis, status post left total knee replacement. Continue Eliquis. A RU eval 2. Hypothyroidism. Continue Synthroid. 3. 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 Further recommendations based on clinical course. Plan of care discussed with Dr. Santiago. Exam/Review of Systems Vital Signs Vitals Vital Signs Date Time Temp Pulse Resp B/P Pulse Ox O2 Delivery O2 Flow Rate FiO2 02/02/17 14:00 98.0 87 20 126/58 98 02/01/17 22:33 Nasal Cannula 2.0 Intake and Output 02/01/17 02/01/17 02/02/17 15:00 23:00 07:00 Intake Total 800 ml 760 ml 1525 ml Output Total 100 ml 1080 ml Balance 800 ml 660 ml 445 ml Exam Constitutional: alert, oriented Head: normocephalic Neck: supple Respiratory: normal air movement Cardiovascular: nl pulses Gastrointestinal: non-tender, soft Musculoskeletal: other (s/p Left total knee replacemet) Extremities: normal pulses Results Result Diagram: 02/02/17 0449 02/02/17 0449 Results 24 hrs Laboratory Tests Test 02/02/17 04:49 White Blood Count 9.3 Red Blood Count 3.20 L Hemoglobin 11.2 L Hematocrit 34.3 L Mean Corpuscular Volume 107.2 H Mean Corpuscular Hemoglobin 35.0 H Mean Corpuscular Hemoglobin Concent 32.7 Red Cell Distribution Width 12.8 Platelet Count 110 L Mean Platelet Volume 10.8 H Neutrophils % 55.6 Lymphocytes % 30.3 Monocytes % 10.8 Eosinophils % 2.6 Basophils % 0.4 Nucleated Red Blood Cells % 0.0 Neutrophils # 5.2 Lymphocytes # 2.8 Monocytes # 1.0 H Eosinophils # 0.2 Basophils # 0.0 Nucleated Red Blood Cells # 0.0 Sodium Level 135 Potassium Level 4.1 Chloride Level 101 Carbon Dioxide Level 28 Anion Gap 10 # Blood Urea Nitrogen 11 Creatinine 0.67 Glucose Level 83 Calcium Level 8.1 L Medications Medications Current Medications Oxycodone HCl (Roxicodone) 10 mg Q3H PRN PO PAIN LEVEL 4-7 Last administered on 02/01/17 10:24; Admin Dose 10 MG; Start 01/30/17 at 15:00 Oxycodone HCl (Roxicodone) 5 mg Q3H PRN PO PAIN LEVEL 1-3; Start 01/30/17 at 15:00 Pantoprazole (Protonix Tab) 40 mg DAILY@06 PO Last administered on 02/02/17 04:56; Admin Dose 40 MG; Start 02/01/17 at 06:00 Docusate Sodium (Colace) 200 mg BID PO Last administered on 02/02/17 08:54; Admin Dose 200 MG; Start 01/31/17 at 09:00; Stop 02/03/17 at 08:59 Senna/Docusate Sodium (Senokot-S) 2 tab BID PRN PO CONSTIPATION; Start at 15:00 Magnesium Hydroxide (Milk Of Mag) 30 ml HS PRN PO CONSTIPATION Last administered on 02/02/17 08:57; Admin Dose 30 ML; Start 01/30/17 at 15:00 Naloxone HCl 0.2 mg 0.2 mg Q2M PRN IV DECREASED REPIRATORY RATE; Start at 15:00 Lactated Ringer's (Lr) 1,000 ml @ 100 mls/hr Q10H IV Last administered on 04:56; Admin Dose 100 MLS/HR; Start 01/30/17 at 18:00 Apixaban (Eliquis) 2.5 mg BID PO Last administered on 02/02/17 08:53; Admin Dose 2.5 MG; Start 01/31/17 at 20:00; Stop 02/12/17 at 19:59 Brimonidine Tartrate (Alphagan 0.2%) 1 drop BID BOTH EYES Last administered on 02/02/17 08:53; Admin Dose 1 DROP; Start 01/30/17 at 21:00 Latanoprost (Xalatan) 1 drop BID BOTH EYES Last administered on 02/02/17 08: 57; Admin Dose 1 DROP; Start 01/30/17 at 21:00 Levothyroxine Sodium (Synthroid) 112 mcg DAILY@06 PO Last administered on 02/02 04:56; Admin Dose 112 MCG; Start 01/31/17 at 06:00 ZAKIYA WERNER Feb 02, 2017 17:40
[2017-02-02 19:25] VITALS: BP 110/53; RESP 20
[2017-02-02] MEDS: SENNA/DOCUSATE NA (8.6MG/50MG) TAB PO PRN (20:10)
[2017-02-03] MEDS: LACTATED RINGER'S 1,000 ML IV SCH ×3 (01:41→22:00)
[2017-02-03 02:15] VITALS: BP 130/61; RESP 19
[2017-02-03 05:30] LABS: CALCIUM 7.9 mg/dl (8.4-10.2); CREATININE 0.68 mg/dl (0.44-1.00); POTASSIUM 4.3 mmol/L (3.5-5.1)
[2017-02-03] MEDS: PANTOPRAZOLE (EC) 40 MG TAB PO SCH (05:34)
[2017-02-03] MEDS: LEVOTHYROXINE 112 MCG TAB PO SCH (05:34)
[2017-02-03 05:44] LABS: BASOPHILS % 0.3 % (0.0-2.0); EOSINOPHILS # 0.2 10^3/ul (0.0-0.5); EOSINOPHILS % 3.3 % (0.0-7.0); HEMATOCRIT 30.7 % (37.0-47.0); HEMOGLOBIN 10.1 g/dl (12.0-16.0); LYMPHOCYTES # 2.2 10^3/ul (0.8-2.9); LYMPHOCYTES % 33.2 % (15.0-51.0); MEAN CORPUSCULAR HEMOGLOBIN 34.8 pg (29.0-33.0); MEAN CORPUSCULAR HGB CONC 32.9 g/dl (32.0-37.0); MEAN CORPUSCULAR VOLUME 105.9 fl (82.0-101.0); MEAN PLATELET VOLUME 10.8 fl (7.4-10.4); MONOCYTE # 0.8 10^3/ul (0.3-0.9); MONOCYTES % 12.4 % (0.0-11.0); NEUTROPHIL # 3.3 10^3/ul (1.6-7.5); NEUTROPHILS % 50.3 % (39.0-77.0); PLATELET COUNT 113 10^3/UL (140-415); RED CELL DISTRIBUTION WIDTH 12.8 % (11.5-14.5); WHITE BLOOD COUNT 6.6 10^3/ul (4.8-10.8)
[2017-02-03 08:15] VITALS: BP 125/59; RESP 16
[2017-02-03] MEDS: APIXABAN 5 MG TABLET PO SCH ×2 (08:29→20:52)
[2017-02-03] MEDS: BRIMONIDINE 0.2% 5 ML BTL BOTH EYES SCH ×2 (08:30→20:51)
[2017-02-03] MEDS: LATANOPROST 0.005% 2.5 ML OPH BOTH EYES SCH ×2 (08:30→20:51)
[2017-02-03] MEDS: SENNA/DOCUSATE NA (8.6MG/50MG) TAB PO PRN (10:51)
[2017-02-03] MEDS: MAGNESIUM HYDROXIDE 30ML CUP PO PRN (10:52)
[2017-02-03] MEDS: oxyCODONE 5 MG TAB PO PRN ×2 (13:16→18:13)
[2017-02-03 14:36] VITALS: BP 126/58; RESP 18
--- NOTE | 2017-02-03 14:53 | PN ---
Date/Time of Note Date/Time of Note DATE: 02/03/17 TIME: 14:51 Assessment/Plan VTE Prophylaxis VTE Prophylaxis Intervention: other Lines/Catheters IV C[facility] Type (from [facility] Saline Lock Urinary Cath still in place: No Assessment/Plan Chief Complaint/Hosp Course Pt is clinically stable, pending ARU eval. Assessment/Plan 1. Left knee osteoarthritis, status post left total knee replacement. Continue Eliquis. Continue PT. ARU eval 2. Hypothyroidism. TSH is wnl. Continue Synthroid. 3. 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 Further recommendations based on clinical course. Plan of care discussed with Dr. Santiago. Problems: Exam/Review of Systems Vital Signs Vitals Vital Signs Date Time Temp Pulse Resp B/P Pulse Ox O2 Delivery O2 Flow Rate FiO2 02/03/17 14:36 98.7 67 18 126/58 94 02/01/17 22:33 Nasal Cannula 2.0 Intake and Output 02/02/17 02/02/17 02/03/17 15:00 23:00 07:00 Intake Total 500 ml 350 ml Balance 500 ml 350 ml Exam Constitutional: alert, oriented Head: normocephalic Neck: supple Respiratory: normal air movement Cardiovascular: nl pulses Gastrointestinal: non-tender, soft Musculoskeletal: other (s/p Left total knee replacemet) Extremities: normal pulses Results Result Diagram: 02/03/17 0431 02/03/17 0431 Results 24 hrs Laboratory Tests Test 02/03/17 04:31 White Blood Count 6.6 # Red Blood Count 2.90 L Hemoglobin 10.1 L Hematocrit 30.7 L Mean Corpuscular Volume 105.9 H Mean Corpuscular Hemoglobin 34.8 H Mean Corpuscular Hemoglobin Concent 32.9 Red Cell Distribution Width 12.8 Platelet Count 113 L Mean Platelet Volume 10.8 H Neutrophils % 50.3 Lymphocytes % 33.2 Monocytes % 12.4 H Eosinophils % 3.3 Basophils % 0.3 Nucleated Red Blood Cells % 0.0 Neutrophils # 3.3 Lymphocytes # 2.2 Monocytes # 0.8 Eosinophils # 0.2 Basophils # 0.0 Nucleated Red Blood Cells # 0.0 Sodium Level 134 L Potassium Level 4.3 Chloride Level 100 Carbon Dioxide Level 32 H Anion Gap 6 L Blood Urea Nitrogen 11 Creatinine 0.68 Glucose Level 78 Calcium Level 7.9 L Thyroid Stimulating Hormone (TSH) 3.940 Medications Medications Current Medications Oxycodone HCl (Roxicodone) 10 mg Q3H PRN PO PAIN LEVEL 4-7 Last administered on 02/03/17 13:16; Admin Dose 10 MG; Start 01/30/17 at 15:00 Oxycodone HCl (Roxicodone) 5 mg Q3H PRN PO PAIN LEVEL 1-3 Last administered on 02/02/17 20:10; Admin Dose 5 MG; Start 01/30/17 at 15:00 Pantoprazole (Protonix Tab) 40 mg DAILY@06 PO Last administered on 02/03/17 05:34; Admin Dose 40 MG; Start 02/01/17 at 06:00 Senna/Docusate Sodium (Senokot-S) 2 tab BID PRN PO CONSTIPATION Last administered on 02/03/17 10:51; Admin Dose 2 TAB; Start 01/30/17 at 15:00 Magnesium Hydroxide (Milk Of Mag) 30 ml HS PRN PO CONSTIPATION Last administered on 02/03/17 10:52; Admin Dose 30 ML; Start 01/30/17 at 15:00 Naloxone HCl 0.2 mg 0.2 mg Q2M PRN IV DECREASED REPIRATORY RATE; Start at 15:00 Lactated Ringer's (Lr) 1,000 ml @ 100 mls/hr Q10H IV Last administered on 04:56; Admin Dose 100 MLS/HR; Start 01/30/17 at 18:00 Apixaban (Eliquis) 2.5 mg BID PO Last administered on 02/03/17 08:29; Admin Dose 2.5 MG; Start 01/31/17 at 20:00; Stop 02/12/17 at 19:59 Brimonidine Tartrate (Alphagan 0.2%) 1 drop BID BOTH EYES Last administered on 02/03/17 08:30; Admin Dose 1 DROP; Start 01/30/17 at 21:00 Latanoprost (Xalatan) 1 drop BID BOTH EYES Last administered on 02/03/17 08: 30; Admin Dose 1 DROP; Start 01/30/17 at 21:00 Levothyroxine Sodium (Synthroid) 112 mcg DAILY@06 PO Last administered on 02/03 05:34; Admin Dose 112 MCG; Start 01/31/17 at 06:00 ZAKIYA WERNER Feb 03, 2017 14:53
[2017-02-03 20:12] VITALS: BP 125/57; RESP 18
[2017-02-04 01:24] VITALS: BP 119/56; RESP 18
[2017-02-04] MEDS: LEVOTHYROXINE 112 MCG TAB PO SCH (05:24)
[2017-02-04] MEDS: MAGNESIUM HYDROXIDE 30ML CUP PO PRN (05:24)
[2017-02-04] MEDS: PANTOPRAZOLE (EC) 40 MG TAB PO SCH (05:24)
[2017-02-04 05:37] LABS: ABNORMAL IP MESSAGE 1; BASOPHILS % 0.4 % (0.0-2.0); EOSINOPHILS # 0.3 10^3/ul (0.0-0.5); HEMATOCRIT 31.3 % (37.0-47.0); HEMOGLOBIN 10.1 g/dl (12.0-16.0); LYMPHOCYTES # 1.3 10^3/ul (0.8-2.9); MEAN CORPUSCULAR HEMOGLOBIN 33.9 pg (29.0-33.0); MEAN CORPUSCULAR HGB CONC 32.3 g/dl (32.0-37.0); MEAN PLATELET VOLUME 11.3 fl (7.4-10.4); MONOCYTE # 0.7 10^3/ul (0.3-0.9); MONOCYTES % 12.4 % (0.0-11.0); NEUTROPHILS % 56.8 % (39.0-77.0); PLATELET COUNT 96 10^3/UL (140-415); RED BLOOD COUNT 2.98 10^6/ul (4.20-5.40); RED CELL DISTRIBUTION WIDTH 13.1 % (11.5-14.5); WHITE BLOOD COUNT 5.2 10^3/ul (4.8-10.8)
[2017-02-04 06:20] LABS: CALCIUM 8.1 mg/dl (8.4-10.2); CREATININE 0.67 mg/dl (0.44-1.00); POTASSIUM 4.5 mmol/L (3.5-5.1)
[2017-02-04 06:23] LABS: POSITIVE DIFF @See below
[2017-02-04 07:38] VITALS: BP 119/58; RESP 17
[2017-02-04] MEDS: LACTATED RINGER'S 1,000 ML IV SCH ×2 (08:00→16:39)
[2017-02-04] MEDS: APIXABAN 5 MG TABLET PO SCH ×2 (08:39→20:44)
[2017-02-04] MEDS: BRIMONIDINE 0.2% 5 ML BTL BOTH EYES SCH ×2 (08:40→20:44)
[2017-02-04] MEDS: LATANOPROST 0.005% 2.5 ML OPH BOTH EYES SCH ×2 (08:40→20:44)
[2017-02-04 14:30] VITALS: BP 126/60; RESP 18
--- NOTE | 2017-02-04 17:02 | PN ---
Date/Time of Note Date/Time of Note DATE: 02/04/17 TIME: 17:01 Assessment/Plan VTE Prophylaxis VTE Prophylaxis Intervention: SCD's Lines/Catheters IV [facility] Saline Lock Urinary Cath still in place: No Assessment/Plan Chief Complaint/Hosp Course Pt is clinically stable, pending for correction facility placement for further physical therapy Assessment/Plan 1. Left knee osteoarthritis, status post left total knee replacement. Continue Eliquis. Continue PT. 2. Hypothyroidism. TSH is wnl. Continue Synthroid. 3. 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 Further recommendations based on clinical course. Plan of care discussed with Dr. Santiago. Problems: Exam/Review of Systems Vital Signs Vitals Vital Signs Date Time Temp Pulse Resp B/P Pulse Ox O2 Delivery O2 Flow Rate FiO2 02/04/17 14:30 98.0 82 18 126/60 98 02/04/17 09:41 Nasal Cannula 2.0 Intake and Output 02/03/17 02/03/17 02/04/17 15:00 23:00 07:00 Intake Total 740 ml 450 ml Balance 740 ml 450 ml Exam Constitutional: alert, oriented Head: normocephalic Neck: supple Respiratory: normal air movement Cardiovascular: nl pulses Gastrointestinal: non-tender, soft Musculoskeletal: other (s/p Left total knee replacemet) Extremities: normal pulses Results Result Diagram: 02/04/17 0455 02/04/17 0455 Results 24 hrs Laboratory Tests Test 02/04/17 04:55 White Blood Count 5.2 # Red Blood Count 2.98 L Hemoglobin 10.1 L Hematocrit 31.3 L Mean Corpuscular Volume 105.0 H Mean Corpuscular Hemoglobin 33.9 H Mean Corpuscular Hemoglobin Concent 32.3 Red Cell Distribution Width 13.1 Platelet Count 96 L Mean Platelet Volume 11.3 H Neutrophils % 56.8 Lymphocytes % 25.0 Monocytes % 12.4 H Eosinophils % 5.0 Basophils % 0.4 Nucleated Red Blood Cells % 0.0 Neutrophils # 3.0 Lymphocytes # 1.3 Monocytes # 0.7 Eosinophils # 0.3 Basophils # 0.0 Nucleated Red Blood Cells # 0.0 Sodium Level 135 Potassium Level 4.5 Chloride Level 102 Carbon Dioxide Level 34 H Anion Gap 4 L Blood Urea Nitrogen 9 Creatinine 0.67 Glucose Level 106 Calcium Level 8.1 L Medications Medications Current Medications Oxycodone HCl (Roxicodone) 10 mg Q3H PRN PO PAIN LEVEL 4-7 Last administered on 02/03/17 18:13; Admin Dose 10 MG; Start 01/30/17 at 15:00 Oxycodone HCl (Roxicodone) 5 mg Q3H PRN PO PAIN LEVEL 1-3 Last administered on 02/02/17 20:10; Admin Dose 5 MG; Start 01/30/17 at 15:00 Pantoprazole (Protonix Tab) 40 mg DAILY@06 PO Last administered on 02/04/17 05:24; Admin Dose 40 MG; Start 02/01/17 at 06:00 Senna/Docusate Sodium (Senokot-S) 2 tab BID PRN PO CONSTIPATION Last administered on 02/03/17 10:51; Admin Dose 2 TAB; Start 01/30/17 at 15:00 Magnesium Hydroxide (Milk Of Mag) 30 ml HS PRN PO CONSTIPATION Last administered on 02/04/17 05:24; Admin Dose 30 ML; Start 01/30/17 at 15:00 Naloxone HCl 0.2 mg 0.2 mg Q2M PRN IV DECREASED REPIRATORY RATE; Start at 15:00 Lactated Ringer's (Lr) 1,000 ml @ 100 mls/hr Q10H IV Last administered on 04:56; Admin Dose 100 MLS/HR; Start 01/30/17 at 18:00 Apixaban (Eliquis) 2.5 mg BID PO Last administered on 02/04/17 08:39; Admin Dose 2.5 MG; Start 01/31/17 at 20:00; Stop 02/12/17 at 19:59 Brimonidine Tartrate (Alphagan 0.2%) 1 drop BID BOTH EYES Last administered on 02/04/17 08:40; Admin Dose 1 DROP; Start 01/30/17 at 21:00 Latanoprost (Xalatan) 1 drop BID BOTH EYES Last administered on 02/04/17 08: 40; Admin Dose 1 DROP; Start 01/30/17 at 21:00 Levothyroxine Sodium (Synthroid) 112 mcg DAILY@06 PO Last administered on 02/04 05:24; Admin Dose 112 MCG; Start 01/31/17 at 06:00 ZAKIYA WERNER Feb 04, 2017 17:02
[2017-02-04 20:39] VITALS: BP 131/60; RESP 20
[2017-02-05] MEDS: LACTATED RINGER'S 1,000 ML IV SCH ×2 (04:00→12:15)
[2017-02-05 05:15] LABS: WHITE BLOOD COUNT 5.5 10^3/ul (4.8-10.8)
[2017-02-05 05:16] LABS: ABNORMAL IP MESSAGE 1; BASOPHILS % 0.5 % (0.0-2.0); EOSINOPHILS # 0.2 10^3/ul (0.0-0.5); EOSINOPHILS % 4.2 % (0.0-7.0); HEMATOCRIT 29.1 % (37.0-47.0); HEMOGLOBIN 9.7 g/dl (12.0-16.0); LYMPHOCYTES # 1.5 10^3/ul (0.8-2.9); MEAN CORPUSCULAR HGB CONC 33.3 g/dl (32.0-37.0); MEAN CORPUSCULAR VOLUME 105.1 fl (82.0-101.0); MONOCYTE # 0.8 10^3/ul (0.3-0.9); MONOCYTES % 14.3 % (0.0-11.0); NEUTROPHIL # 2.9 10^3/ul (1.6-7.5); NEUTROPHILS % 52.5 % (39.0-77.0); PLATELET COUNT 97 10^3/UL (140-415); RED BLOOD COUNT 2.77 10^6/ul (4.20-5.40); RED CELL DISTRIBUTION WIDTH 13.1 % (11.5-14.5)
[2017-02-05 05:18] LABS: POSITIVE DIFF @See below
[2017-02-05 05:57] LABS: CALCIUM 7.9 mg/dl (8.4-10.2); CREATININE 0.62 mg/dl (0.44-1.00); POTASSIUM 4.2 mmol/L (3.5-5.1)
[2017-02-05] MEDS: LEVOTHYROXINE 112 MCG TAB PO SCH (06:44)
[2017-02-05] MEDS: PANTOPRAZOLE (EC) 40 MG TAB PO SCH (06:44)
[2017-02-05 08:20] VITALS: BP 122/71; RESP 18
[2017-02-05] MEDS: BRIMONIDINE 0.2% 5 ML BTL BOTH EYES SCH (09:09)
[2017-02-05] MEDS: APIXABAN 5 MG TABLET PO SCH (09:10)
[2017-02-05] MEDS: LATANOPROST 0.005% 2.5 ML OPH BOTH EYES SCH (09:10)
[2017-02-05] MEDS: SENNA/DOCUSATE NA (8.6MG/50MG) TAB PO PRN (12:22)
[2017-02-05] MEDS: oxyCODONE 5 MG TAB PO PRN (12:23)
[2017-02-05 14:41] VITALS: BP 115/61; RESP 18
[2017-02-05] MEDS ORDERED: DOCU-144 PO (17:04)
[2017-02-05] MEDS ORDERED: APIX5TAB PO (17:04)
[2017-02-05] MEDS ORDERED: PANT40TA4 PO (17:04)
--- NOTE | 2017-02-05 17:09 | PDOCDIS ---
Discharge Instructions CONDITION Patient Condition: Stable HOME CARE INSTRUCTIONS: Diet Instructions: RegularSpecial Diet: REGULAR ACTIVITY: Activity Restrictions: Slowly Increase Activity Rest between Activity Avoid heavy lifting Do not Drive Do not operate Machinery Do not operate Power Tool Avoid Heavy Housework Bathing Restrictions: Sponge BathActivity Restrictions Comment: waterproof dressing to operative knee site TERRA LI Feb 05, 2017 17:09
--- NOTE | 2017-02-05 17:09 | DS ---
Date/Time of Note Date/Time of Note DATE: 02/05/17 TIME: 17:09 Discharge Summary Admission/Discharge Info Admit Date/Time Jan 30, 2017 at 09:06 Discharge Date/Time Patient Condition: Stable Hospital Course Pt is clinically stable, pending for [facility] facility placement for further physical therapy Assessment/Plan 1. Left knee osteoarthritis, status post left total knee replacement. Continue Eliquis. Continue PT. 2. Hypothyroidism. TSH is wnl. Continue Synthroid. 3. 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 Further recommendations based on clinical course. Plan of care discussed with Dr. Santiago. Home Meds Active Scripts Pantoprazole* (Pantoprazole*) 40 Mg Tablet., 40 MG PO DAILY@06 for 30 Days Prov:TERRA LI 02/05/17 Docusate Sodium* (Colace*) 100 Mg Capsule, 100 MG PO BID, #60 CAP Prov:TERRA LI 02/05/17 Apixaban* (Eliquis*) 5 Mg Tablet, 2.5 MG PO BID for 8 Days, TAB Prov:TERRA LI 02/05/17 Reported Medications Levothyroxine Sodium* (Levoxyl*) 112 Mcg Tablet, 112 MCG PO BEFORE BREAKFAST, # 30 TAB 01/30/17 Brimonidine Tartrate* (Brimonidine Tartrate*) 0.2%-15ML Drop Opht, 1 DROP BOTH EYES BID, #1 EA 01/30/17 Latanoprost (Latanoprost) 2.5 Ml Drops, 1 DROP BOTH EYES BID, #1 BOTTLE 01/30/17 Discontinued Reported Medications Meloxicam* (Mobic*) 15 Mg Tablet, 15 MG PO DAILY, #30 TAB 01/30/17 [Thyroid Medication] No Conflict Check 11/14/15 Discontinued Scripts Nitrofurantoin Monohyd Macrocr* (Macrobid*) 100 Mg Capsr, 100 MG PO BID for 7 Days, CAP Prov:MARILYN COOK MD 09/09/16 Dextromethorphan Hb-Promethazine Hcl (Promethazine DM Syrup) 473 Ml Syrup, 5 ML PO Q6H Y for COUGH, #4 OZ Prov:ELLIOT FRIEDMAN PA-C 02/01/16 Primary Care Provider [facility] Time spent on discharge: < 30 minutes Pending Labs Laboratory Tests Test 02/05/17 04:26 White Blood Count 5.510^3/ul (4.8-10.8) Red Blood Count 2.7710^6/ul (4.20-5.40) Hemoglobin 9.7g/dl (12.0-16.0) Hematocrit 29.1% (37.0-47.0) Mean Corpuscular Volume 105.1fl (82.0-101.0) Mean Corpuscular Hemoglobin 35.0pg (29.0-33.0) Mean Corpuscular Hemoglobin Concent 33.3g/dl (32.0-37.0) Red Cell Distribution Width 13.1% (11.5-14.5) Platelet Count 9710^3/UL (140-415) Mean Platelet Volume 11.0fl (7.4-10.4) Neutrophils % 52.5% (39.0-77.0) Lymphocytes % 28.0% (15.0-51.0) Monocytes % 14.3% (0.0-11.0) Eosinophils % 4.2% (0.0-7.0) Basophils % 0.5% (0.0-2.0) Nucleated Red Blood Cells % 0.0/100WBC (0.0-0.0) Neutrophils # 2.910^3/ul (1.6-7.5) Lymphocytes # 1.510^3/ul (0.8-2.9) Monocytes # 0.810^3/ul (0.3-0.9) Eosinophils # 0.210^3/ul (0.0-0.5) Basophils # 0.010^3/ul (0.0-0.1) Nucleated Red Blood Cells # 0.010^3/ul (0.0-0.0) Sodium Level 135mmol/L (135-144) Potassium Level 4.2mmol/L (3.5-5.1) Chloride Level 101mmol/L (97-110) Carbon Dioxide Level 31mmol/L (21-31) Anion Gap 7 (8-16) Blood Urea Nitrogen 7mg/dl (7-20) Creatinine 0.62mg/dl (0.44-1.00) Glucose Level 86mg/dl (70-220) Calcium Level 7.9mg/dl (8.4-10.2) TERRA LI Feb 05, 2017 17:09
== END 2017-02-05 20:00 | DRG 470 ==
LOC: REC 09:06 → MS1 16:00
PROVIDERS: ADMIT Specialist; ATTEND Specialist
PROC: 0SRD0J9 Replacement of Left Knee Joint with Synthetic Substitute, Cemented, Open Approach (ICD-10-PCS; principal; 2017-01-30 11:30)
DX: M17.9 Osteoarthritis of knee, unspecified (principal); K74.60 Unspecified cirrhosis of liver; E03.9 Hypothyroidism, unspecified; M17.12 Unilateral primary osteoarthritis, left knee
CPT/HCPCS: 36430; 73560; 80048; 84443; 85025; 86850; 86900; 86901; 87086; 88304; 88311; 97110; 97116; 97163; 97530; C1713; J0360; J0690; J1644; J1650; J2250; J2274; J2405; J2765; J2795; J7120; P9035

== ENCOUNTER 2017-04-06 01:46 | Emergency (ER) | payer OTHER ==
[~2017-04-06] VITALS: Ht 152.4 cm; Wt 59.7 kg
[~2017-04-06 01:46] MED LIST changes: +APIX5TAB PO; +BRIM15DR7 BOTH EYES; -CEFAZOLIN 1 GM INJ ONE; -D-ME473S18 PO; +DOCU-144 PO; -EPHEDrine SULFATE 50 MG/5 ML SYG ONE; +LATA2.5D2 BOTH EYES; +LEVO112T42 PO; -NITR-58 PO; +PANT40TA4 PO; -THYROID MEDICATION
[2017-04-06 01:59] VITALS: Ht 152.4 cm; Wt 59.7 kg
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
[2017-04-06] MEDS ORDERED: CYCL-319 PO (03:19)
[2017-04-06] MEDS ORDERED: IBUP-1542 PO (03:19)
[2017-04-06] MEDS ORDERED: IBUPROFEN 600 MG TAB PO ONE (03:30)
[2017-04-06] MEDS ORDERED: CYCLOBENZAPRINE 10 MG TAB PO ONE (03:30)
== END 2017-04-06 03:47 | disposition home or self-care (01) ==
LOC: E/R 01:46
DX: R07.81 Pleurodynia (principal); R51 Headache; M25.562 Pain in left knee; R10.30 Lower abdominal pain, unspecified; M54.9 Dorsalgia, unspecified; Z79.01 Long term (current) use of anticoagulants
CPT/HCPCS: Z7502; Z7610; 99283

== ENCOUNTER 2017-12-03 10:55 | Emergency (ER) | END 2017-12-03 17:27 | disposition home or self-care (01) ==

== ENCOUNTER 2017-12-16 10:35 | Inpatient (IN) | END 2017-12-23 21:40 | disposition home or self-care (01) | DRG 603 ==

== ENCOUNTER 2018-05-23 11:04 | Inpatient (IN) | payer OTHER ==
[2018-05-23] VITALS (7 sets, daily range): BP systolic 105–117; BP diastolic 52–56; PULSE 72–89; RESP 20
[~2018-05-23] VITALS: Ht 152.4 cm; Wt 60.3 kg
[~2018-05-23 11:04] MED LIST changes: +ACET325T33 PO; +ALBU8.5H8 INH; -APIX5TAB PO; -BRIM15DR7 BOTH EYES; -DOCU-144 PO; +IBUP200C11 PO; +INHA-3 MC; -LATA2.5D2 BOTH EYES; -LEVO112T42 PO; +LEVO125T7 PO; +LEVO750T25 PO; +PANT40TA3 PO; -PANT40TA4 PO
[2018-05-23] MEDS ORDERED: SODIUM CHLORIDE 0.9% 1L BAG IV* STA (11:41)
[2018-05-23] MEDS ORDERED: RANI-513 PO (12:41)
[2018-05-23] MEDS ORDERED: SOD CHLORIDE 0.9% 100 ML ONE (12:54)
[2018-05-23] MEDS ORDERED: IOHEXOL 100 ML ONE (12:54)
[2018-05-23] MEDS ORDERED: LEVOFLOXACIN 750MG/D5W (PMX) 150 ML IVPB ONE (13:30)
[2018-05-23] MEDS ORDERED: ACETAMINOPHEN 325 MG TAB PO PRN ×2 (15:00→16:00)
[2018-05-23] MEDS ORDERED: ONDANSETRON 4 MG INJ IV PRN ×2 (15:00→16:00)
[2018-05-23] MEDS ORDERED: FUROSEMIDE 40 MG INJ IV ONE (15:00)
[2018-05-23] MEDS ORDERED: NACL 0.9% 3 ML SYG IV SCH (16:00)
[2018-05-23] MEDS ORDERED: morphine 2 MG INJ IV PRN (16:00)
--- NOTE | 2018-05-23 16:50 | ERD ---
ER Documentation Chief Complaint Chief Complaint Cough, shortness of breath, failure to thrive HPI This is an 82-year-old female with a past medical history of hypothyroidism, multiple recent respiratory complaints who is presenting with progressive worsening shortness of breath. The patient reports having had waxing and waning respiratory issues for the last several months. She reports being diagnosed with pneumonia multiple times. She does not believe that she has a history of CHF, but reports significant dyspnea on exertion, worsening over the last several days. The patient does endorse having fever and chills, waxing and waning in nature. The patient is also had a cough. The patient was evaluated 5 days ago in the emergency department and diagnosed with pneumonia and bronchitis. She was discharged on Levaquin. The patient returns today secondary to worsening shortness of breath and respiratory distress. She is dyspneic and unable to speak in more than 1-2 word sentences. The patient has had no headache or vision changes. The patient does not endorse neck or back pain. The patient denies lightheadedness or dizziness. The patient denies nausea or vomiting. The patient denies abdominal pain. The patie nt denies changes to bowel movements or urination. The patient has had no focal deficits. The patient has had no weakness or numbness or tingling to the face or extremities. ROS All systems reviewed and are negative except as per history of present illness. Medications Home Meds Active Scripts Albuterol Sulfate* (Proair HFA*) 8.5 Gm Hfa.aer.ad, 2 PUFF INH Q4H PRN for WHEEZING AND SOB, #1 INHALER Prov:NATI DREW MD 05/18/18 Acetaminophen* (Tylenol*) 325 Mg Tablet, 2 TAB PO Q8 PRN for PAIN AND OR ELEVATED TEMP, #20 TAB Prov:NATI DREW MD 05/18/18 Levofloxacin* (Levaquin*) 750 Mg Tablet, 750 MG PO DAILY for 7 Days, TAB Prov:NATI DREW MD 05/18/18 Pantoprazole* (Protonix*) 40 Mg Tablet.dr, 40 MG PO DAILY for 60 Days, TAB Prov:ZAKIYA WERNER 12/23/17 Levothyroxine Sodium* (Levothyroxine Sodium*) 125 Mcg Tablet, 125 MCG PO BEFORE BREAKFAST, #60 TAB Prov:ZAKIYA WERNER 12/23/17 Reported Medications Ranitidine Hcl* (Ranitidine Hcl*) 75 Mg Tablet, 75 MG PO BID PRN for HEARTBURN, #60 TAB 05/23/18 Discontinued Reported Medications Ibuprofen* (Advil*) 200 Mg Capsule, 200 MG PO Q6H PRN for PAIN, CAP 12/15/17 Discontinued Scripts Inhaler, Assist Devices (Compact Space Chamber) 1 Each Spacer, EACH MC Q4H WHILE AWAKE PRN for COUGH, #1 Prov:NATI DREW MD 05/18/18 Allergies Allergies: Coded Allergies: Penicillins (Verified Allergy, Unknown, SOB DIZZY INCREASED BLOOD PRESSURE, 05/23/18) PMhx/Soc History of Surgery: Yes (CHOLECYSTECTOMY, LEFT KNEE REPLACEMENT (2016)) Anesthesia Reaction: No Hx Neurological Disorder: No Hx Respiratory Disorders: Yes (PNA) Hx Cardiac Disorders: No Hx Psychiatric Problems: No Hx Miscellaneous Medical Probl: Yes (HYPOTHYROIDISM) Hx Alcohol Use: Yes (OCCASSIONAL) Hx Substance Use: No Hx Tobacco Use: No Smoking Status: Never smoker FmHx Family History: No diabetes Physical Exam Vitals Vital Signs Date Temp Pulse Resp B/P (MAP) Pulse Ox O2 O2 Flow FiO2 Time Delivery Rate 05/23/18 76 99 60 14:12 05/23/18 96 100 60 12:35 05/23/18 100 100 12:16 05/23/18 Simple 10 12:00 Mask 05/23/18 99.8 106 16 109/42 50 11:19 (64) Physical Exam Const: Distressed. Cachectic. Head: Normocephalic, Atraumatic Eyes: Normal Conjunctiva. Extraocular movements intact. Pupils equal, round and reactive to light ENT: Normal External Ears, Nose and Mouth. Neck: Full range of motion. No meningismus. Resp: Severe respiratory distress. Diffuse bilateral rales. No wheezes. Cardio: Regular rate and rhythm. No murmurs, rubs or gallops Abd: Soft, non tender, non distended. Normal bowel sounds Skin: No petechiae or rashes Back: No midline tenderness. No CVA tenderness Ext: No cyanosis, or edema Neur: Awake and alert. Cranial nerves intact. No facial droop. Normal strength, sensation and coordination. Result Diagram: 05/23/18 1154 05/23/18 1154 Results 24 hrs Laboratory Tests Test 05/23/18 11:41 05/23/18 11:54 05/23/18 11:56 05/23/18 12:25 Blood Gas Blood arterial Specimen Source Arterial Blood 05/23/2018 11:48 Date Drawn :51 AM Arterial Blood 7.380 pH (Temp corrected ) Arterial Blood 27.4 mmhg pCO2 (Temp correct) Arterial Blood 67.5 mmHG pO2 (Temp corrected ) Arterial Blood 15.8 mmol/L HCO3 Arterial Blood -7.7 mmol/L Base Excess Arterial Blood 92.7 mmHG Oxygen Saturati on Randy Test ACCEPTAB Arterial Blood Left Radial Gas Puncture Site Arterial 0.9 % Blood Carboxyhe moglobin Arterial Blood 0.2 % Methemoglobin Blood Gas A-a 337.4 mmHg O2 Differential Oxyhemoglobin 91.7 % Percent Blood Gas 37.0 C Temperature Blood Gas MASK - SIMPLE Modality FiO2 61.0 % Blood Gas M.D. Notified Whom Blood Gas 05/23/2018 11:58 Notified Time :24 AM White Blood 12.6 10^3/ul Count Red Blood Count 3.52 10^6/ul Hemoglobin 12.4 g/dl Hematocrit 38.8 % Mean 110.2 fl Corpuscular Volume Mean 35.2 pg Corpuscular Hemoglobin Mean 32.0 g/dl Corpuscular Hemoglobin Conc ent Red Cell 14.6 % Distribution Width Platelet Count 96 10^3/UL Mean Platelet 11.4 fl Volume Immature 1.300 % Granulocytes % Neutrophils % 86.1 % Lymphocytes % 4.7 % Monocytes % 7.4 % Eosinophils % 0.2 % Basophils % 0.3 % Nucleated Red 0.0 /100WBC Blood Cells % Immature 0.160 10^3/ul Granulocytes # Neutrophils # 10.9 10^3/ul Lymphocytes # 0.6 10^3/ul Monocytes # 0.9 10^3/ul Eosinophils # 0.0 10^3/ul Basophils # 0.0 10^3/ul Nucleated Red 0.0 10^3/ul Blood Cells # Prothrombin 19.7 Sec Time Prothrombin 1.5 Time Ratio INR 1.66 International Normalized Rati o Activated 34.0 Sec Partial Thrombo plast Time Sodium Level 138 mmol/L Potassium Level 3.9 mmol/L Chloride Level 105 mmol/L Carbon Dioxide 20 mmol/L Level Anion Gap 13 Blood Urea 15 mg/dl Nitrogen Creatinine 0.90 mg/dl Est Glomerular mL/min Filtrat Rate mL/min Glucose Level 104 mg/dl Calcium Level 8.4 mg/dl Total Bilirubin 1.7 mg/dl Direct 0.00 mg/dl Bilirubin Indirect 1.7 mg/dl Bilirubin Aspartate Amino 95 IU/L Transf (AST/SGO T) Alanine 38 IU/L Aminotransferas e (ALT/SGPT) Alkaline 174 IU/L Phosphatase Troponin I 0.043 ng/ml B-Type 1630 PG/ML Natriuretic Peptide Total Protein 6.1 g/dl Albumin 2.7 g/dl Globulin 3.40 g/dl Albumin/Globuli 0.79 n Ratio POC Venous 7.1 mmol/L Lactate Urine Color TEDDY Urine Clarity CLOUDY Urine pH 5.0 Urine Specific 1.025 [place] Urine Ketones NEGATIVE mg/dL Urine Nitrite NEGATIVE mg/dL Urine Bilirubin NEGATIVE mg/dL Urine 1+ mg/dL Urobilinogen Urine Leukocyte TRACE Hector/ul Esterase Urine 2 /HPF Microscopic RBC Urine 4 /HPF Microscopic WBC Urine Squamous MODERATE /HPF Epithelial Cell s Urine Bacteria FEW /HPF Urine Mucus FEW /HPF Urine NEGATIVE mg/dL Hemoglobin Urine Glucose NEGATIVE mg/dL Urine Total NEGATIVE mg/dl Protein Current Medications Medications Dose Sig/Gio Start Time Status Last (Trade) Ordered Route PRN Stop Time Admin Dose Reason Admin Sodium 1,750 ml BOLUS OVER 2 05/23/18 DC 05/23/18 Chloride HOURS STAT 11:41 12:30 (NS) IV* 05/23/18 11:46 IV Flush 10 ml STK-MED 05/23/18 DC (NS 10 ml) ONCE .ROUTE 12:54 05/23/18 12:55 Sodium 100 ml @ ud STK-MED 05/23/18 DC Chloride ONCE .ROUTE 12:54 05/23/18 12:55 Iohexol 100 ml @ ud STK-MED 05/23/18 DC ONCE .ROUTE 12:54 05/23/18 12:55 150 ml @ ONCE ONCE 05/23/18 DC 05/23/18 Levofloxacin/ 100 mls/hr IVPB 13:30 13:37 Dextrose 05/23/18 14:59 Furosemide 40 mg ONCE ONCE 05/23/18 DC (Lasix) IV 15:00 05/23/18 15:01 Ondansetron 4 mg ER BRIDGE 05/23/18 HCl (Zofran PRN IV 15:00 Inj) NAUSEA/VOMITI 05/24/18 14:59 NG 650 mg ER BRIDGE 05/23/18 Acetaminophen PRN PO 15:00 (Tylenol .MILD PAIN 05/24/18 14:59 Tab) 1-3 OR TEMP IV Flush 3 ml PER 05/23/18 (NS 3 ml) PROTOCOL IV 16:00 Ondansetron 4 mg Q6H PRN 05/23/18 HCl (Zofran IV 16:00 Inj) NAUSEA/VOMITI NG 650 mg Q6H PRN 05/23/18 Acetaminophen PO .PAIN 1-3 16:00 (Tylenol OR TEMP Tab) Morphine 2 mg Q4H PRN 05/23/18 Sulfate IV .PAIN 16:00 (morphine) 7-10 Famotidine 20 mg DAILY IV 05/23/18 (Pepcid Iv) 15:47 Enoxaparin 30 mg DAILY SC 05/24/18 Sodium 09:00 (Lovenox) Procedures/MDM MDM The patient's presentation warrants further investigation. Previous medical records, if available, were reviewed. LABS The patient's laboratory testing was obtained and reviewed. No emergent treatment was required unless described below. CBC: Leukocytosis with left shift, concerning for infection. No E/o anemia. Thrombocytopenia. CMP: No E/o severe acidosis or alkalosis or renal failure or diabetic ketoacidosis. Mild hyperbilirubinemia. Lactate: E/o severe sepsis Troponin: No E/o acute ischemia BNP: E/o heart failure Urine: No E/o acute infection or hematuria EKG EKG read by me: Rate/Rhythm: Regular rate and rhythm at a rate of 94 bpm Intervals: Normal [place]: Normal Impression: No evidence of acute ischemia or arrhythmia IMAGING Imaging and Radiology interpretation reviewed. CXR FINDINGS: There is severe bilateral pulmonary airspace disease consistent with pulmonary edema or bilateral pneumonia. The heart size is normal. There is no pleural effusion. There is no pneumothorax. IMPRESSION: 1. Severe bilateral pulmonary air space disease consistent with pulmonary edema or bilateral pneumonia. 2. Otherwise unremarkable chest radiograph. Call report: A call report of the findings was made to Dr. Fernandez on 05/23/2018 at 1218 hours. Electronically viewed and signed by .Noe Soto MD, MD on 05/23/2018 12:19 CTA Chest IMPRESSION: No pulmonary embolism identified to the level of the proximal segmental arteries, distal branches limited by extensive motion artifact. Extensive bilateral ground-glass opacification throughout the bilateral lungs with relative sparing of the periphery and lung apices. Findings may represent pulmonary edema or infectious etiology. ARDS may have a similar imaging appearance and should be considered. Morphologic changes of cirrhosis. Additional findings as above. Electronically viewed and signed by Paulo Diaz Physician on 05/23/2018 13:37 TREATMENT/DISPOSITION The patient presents in respiratory distress, hypoxic upon arrival. An ABG was performed that revealed hypoxemia but no metabolic acidosis or hypercapnia. The patient was initially started on Vapotherm. However, there is a lot of evidence for a CHF exacerbation. The patient was ultimately started on BiPAP. The patient symptoms are concerning for an infectious etiology. The patient did present previously with fever and chills and shortness of breath with a cough. There were concerns of a superimposed pneumonia 5 days ago. She failed outpatient therapy. The patient was tachycardic with a leukocytosis and significant hypoxia. She is also found to have a severe lactic acidosis. A septic workup was completed. Given the patient's significant hypoxia, the patient was evaluated for the possibility of pulmonary embolism. The patient CT of the chest did not reveal pulmonary embolism. SEPSIS NOTE SIRS Criteria: Tachycardia, leukocytosis Infectious source: Pneumonia End organ damage indicated by: Lactate > 2.0 mmol/L, AHRF Sat < 92% without oxygen, Plt <100 SEPSIS MANAGEMENT Time to recognize sepsis: 12:15 PM. Time to recognize severe sepsis: 12:15 PM. Time to recognize septic shock: 12:15 PM. 3 HOUR BUNDLE Blood cultures x 2 before abx: Yes 30 ml/kg NS bolus completed Initial lactate 7.1 Repeat lactate pending SEPTIC SHOCK ASSESSMENT: YES lactic acid > 4.0 NO persistent hypotension (SBP < 90 or 40 mmHg drop, MAP < 65) despite 30 L/kg IV fluid bolus VOLUME REASSESSMENT FOR SEPTIC SHOCK: Reevaluation Time: 1605 p.m. Temp 98.2, BP 98/54, HR 75, RR21, Pox 97% on BiPAP at 60% FiO2 Heart regular rate & rhythm Lungs Rales present Skin warm & dry Cap Refill less than 2 seconds Pulses radially present I considered further perfusion assessment with CVP measurement, SCVO2, bedside ultrasound volume assessment, passive leg raise, trial of further fluid bolus. And proceeded with 30 ml/kg fluid bolus of NSS, broad spectrum antibiotics, and admission. CRITICAL CARE Critical care time 37 minutes Emergent fluid management while maintaining close respiratory support. Provision of immediate and broad-spectrum antibiotic therapy. Simultaneous assessment for possible sources in order to direct targeted therapy. Consideration for invasive and chemical support to prevent cardiopulmonary collapse. Critical care time is independent of procedures performed. ADMISSION The patient will be admitted to Dr. Molina in accordance with the patient's insurance. The patient was accepted by Dr. Molina to telemetry at 1430PM on 05/23/2018 Disclaimer: Inadvertent spelling and grammatical errors are likely due to EHR/dictation software use and do not reflect on the overall quality of patient care. Note that the electronic time recorded on this note does not necessarily reflect the actual time of the patient encounter. Departure Diagnosis: Primary Impression: Septic shock Additional Impressions: Pneumonia Pneumonia type: due to unspecified organism Laterality: bilateral Lung location: unspecified part of lung Qualified Codes: J18.9 - Pneumonia, unspecified organism CHF exacerbation Heart failure type: unspecified Qualified Codes: I50.9 - Heart failure, unspecified Pulmonary edema Chronicity: acute Qualified Codes: J81.0 - Acute pulmonary edema Respiratory distress Leukocytosis Leukocytosis type: unspecified Qualified Codes: D72.829 - Elevated white blood cell count, unspecified Lactic acidosis Thrombocytopenia Elevated brain natriuretic peptide (BNP) level Hyperalbuminemia Elevated alkaline phosphatase level Hypoalbuminemia Hypoxia Hypoxemia Condition: Serious MELO FERNANDEZ MD May 23, 2018 16:17
[2018-05-23] MEDS ORDERED: ACET325T40 PO (20:05)
[2018-05-23] MEDS ORDERED: RANITIDINE 150 MG TAB PO PRN (21:00)
[2018-05-23] MEDS ORDERED: ALBUTEROL HFA 8 GM INHALER INH PRN (21:00)
[2018-05-24] VITALS (20 sets, daily range): BP systolic 96–124; BP diastolic 51–60; PULSE 16–98; RESP 16–20
[2018-05-24] MEDS: FAMOTIDINE 20 MG INJ IV SCH ×2 (00:19→08:33)
[2018-05-24] MEDS: LEVOTHYROXINE 125 MCG TAB PO SCH (06:52)
[2018-05-24] MEDS: ENOXAPARIN 30 MG/0.3 ML SYG SC SCH (08:37)
--- NOTE | 2018-05-24 13:58 | HP ---
Date/Time of Note Date/Time of Note DATE: 05/24/18 TIME: 13:42 Assessment/Plan VTE Prophylaxis Risk score (from Ns)>0 risk: 2 SCD applied (from Ns): Yes Pharmacological prophylaxis: LMWH Lines/Catheters IV [facility]ter Type [facility]from [facility] Saline Lock Urinary Cath still in place: No Assessment/Plan Assessment/Plan -Septic shock -Community-acquired pneumonia -Acute hypoxemic respiratory failure requiring BiPAP, Dr. Lepe is asked to see patient in pulmonology consultation. -CHF exacerbation. Dr. Alford is asked to see patient in cardiology consultation. -Hypothyroidism -Liver cirrhosis I spoke to patient daughter Trixie and patient rolly Ayers at the bedside and they request to be a patient full code agree with intubation and mechanical ventilation if needed. Further recommendations based on clinical course. Plan of care discussed with Dr. Santiago. Result Diagram: 05/24/18 0503 05/24/18 0503 Results 24hrs Laboratory Tests Test 05/23/18 17:31 05/23/18 18:59 05/24/18 05:03 05/24/18 06:00 POC Venous 3.3 *H Lactate Lactic Acid Level 3.6 *H White Blood Count 11.2 H Red Blood Count 3.15 L Hemoglobin 11.3 L Hematocrit 34.6 L Mean Corpuscular 109.8 H Volume Mean Corpuscular 35.9 H Hemoglobin Mean Corpuscular 32.7 Hemoglobin Concen t Red Cell 14.7 H Distribution Width Platelet Count 90 L Mean Platelet 11.9 H Volume Immature 1.100 H Granulocytes % Neutrophils % 86.1 H Lymphocytes % 6.4 L Monocytes % 5.7 Eosinophils % 0.4 Basophils % 0.3 Nucleated Red 0.0 Blood Cells % Immature 0.120 H Granulocytes # Neutrophils # 9.6 H Lymphocytes # 0.7 L Monocytes # 0.6 Eosinophils # 0.1 Basophils # 0.0 Nucleated Red 0.0 Blood Cells # Sodium Level 138 Potassium Level 4.1 Chloride Level 108 Carbon Dioxide 25 Level Anion Gap 5 # Blood Urea 17 Nitrogen Creatinine 0.84 Est Glomerular Filtrat Rate mL/min Glucose Level 65 #L Hemoglobin A1c 4.7 Calcium Level 8.0 L Total Bilirubin 1.2 Direct Bilirubin 0.00 Indirect 1.2 H Bilirubin Aspartate Amino 73 H Transf (AST/SGOT) Alanine 40 Aminotransferase (ALT/SGPT) Alkaline 151 H Phosphatase Total Protein 5.4 L Albumin 2.3 L Globulin 3.10 Albumin/Globulin 0.74 Ratio Blood Gas Blood arterial Specimen Source Arterial Blood 05/24/2018 5:46:5 Date Drawn 8 AM Arterial Blood pH 7.437 (Temp corrected) Arterial Blood 31.5 L pCO2 (Temp correct) Arterial Blood 61.3 L pO2 (Temp corrected) Arterial Blood 20.8 L HCO3 Arterial Blood -2.6 Base Excess Arterial Blood 91.5 L Oxygen Saturation Randy Test ACCEPTAB Arterial Blood Right Radial Gas Puncture Site Arterial 0.3 Blood Carboxyhemo globin Arterial Blood 0.3 Methemoglobin Blood Gas A-a O2 331.9 H Differential Oxyhemoglobin 91.0 L Percent Blood Gas 37.0 Temperature Blood Gas 14.0 Respiration Rate Blood Gas Actual 34 Respiration Rate Blood Gas MASK - BIPAP Modality FiO2 60.0 Blood Gas 15/5 IPAP/EPAP Ratio Blood Gas LKaylin ESTES [facility] Notified Whom Blood Gas 05/24/2018 5:57:5 Notified Time 4 AM HPI/ROS Admit Date/Time Admit Date/Time May 23, 2018 at 14:40 Hx of Present Illness The patient is a 82-year-old female known to me from previous admission patient with history of liver cirrhosis 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 Patient was brought to the emergency room from home for complaints of shortness of breath which was getting progressively worse, complains of dizziness and lightheadedness. Patient is hypoxic on presentation to the emergency room, CT angiogram revealed extensive bilateral ground-glass opacification throughout the bilateral lungs but no pulmonary embolism. Patient with elevated white blood cells and lactic acid. Was giving antibiotic and started on BiPAP machine for hypoxic respiratory failure and admitted for further evaluation and management to telemetry floor. ROS 12 point review of system is negative except for that mentioned in HPI PMH/Family/Social Past Medical History Medical History: coronary artery disease, hypothyroid, other (Liver cirrhosis, L4 compression fracture) Medications Current Medications IV Flush (NS 3 ml) 3 ml PER PROTOCOL IV ; Start 05/23/18 at 16:00 Ondansetron HCl (Zofran Inj) 4 mg Q6H PRN IV NAUSEA/VOMITING; Start 05/23/18 at 16:00 Acetaminophen (Tylenol Tab) 650 mg Q6H PRN PO .PAIN 1-3 OR TEMP; Start 05/23/18 at 16:00 Morphine Sulfate (morphine) 2 mg Q4H PRN IV .PAIN 7-10; Start 05/23/18 at 16:00 Famotidine (Pepcid Iv) 20 mg DAILY IV Last administered on 05/24/18at 08:33; Admin Dose 20 MG; Start 05/23/18 at 15:47 Enoxaparin Sodium (Lovenox) 30 mg DAILY SC Last administered on 05/24/18at 08:37; Admin Dose 30 MG; Start 05/24/18 at 09:00 Albuterol (Ventolin Hfa) 2 puff Q4H PRN INH WHEEZING AND SOB; Start 05/23/18 at 21:00 Levothyroxine Sodium (Synthroid) 125 mcg BEFORE BREAKFAST PO Last administered on 05/24/18at 06:52; Admin Dose 125 MCG; Start 05/24/18 at 07:00 Coded Allergies: Penicillins (Verified Allergy, Unknown, SOB DIZZY INCREASED BLOOD PRESSURE, 05/30/18) Past Surgical History Past Surgical Hx: other (Status post left total knee replacement, status post laparoscopic cholecystectomy, status post right eye cataract repair) Family History Significant Family History: no pertinent family hx Social History Alcohol Use: other (Former alcohol user) Smoking Status: Never smoker Drug Use: none Exam/Review of Systems Vital Signs Vitals Vital Signs Date Temp Pulse Resp B/P (MAP) Pulse Ox O2 O2 Flow FiO2 Time Delivery Rate 05/24/18 74 93 60 13:15 05/24/18 98.2 16 101/52 11:26 (68) 05/23/18 BIPAP 18:10 05/23/18 10 12:00 Intake and Output 05/23/18 05/23/18 05/24/18 1515:00 23:00 07:00 IntakeIntake Total 250 ml BalanceBalance 250 ml Exam Constitutional: alert Psych: confusion Head: normocephalic Neck: supple Respiratory: diminished breath sounds Cardiovascular: regular rate and rhythm Gastrointestinal: soft, non-tender Musculoskeletal: nl extremities to inspection Extremities: normal pulses Skin: nl ZAKIYA Grimm May 24, 2018 13:53
[2018-05-24] MEDS ORDERED: LEVOFLOXACIN 500MG/D5W (PMX) 100 ML IVPB SCH (14:00)
--- NOTE | 2018-05-24 15:44 | CONS ---
DATE OF ADMISSION: 05/23/2018 DATE OF CONSULTATION: 05/24/2018 TYPE OF CONSULTATION: Infectious disease. REASON FOR CONSULTATION: Antibiotic management. HISTORY OF PRESENT ILLNESS: Frances Coyne is an 82-year-old female who was brought into the emergency room with cough, shortness of breath and failure to thrive. Her past problems include: 1. Hypothyroidism. 2. Coronary artery disease with CHF. 3. Status post cholecystectomy. 4. Status post left knee replacement in 01/2017. 5. History of pneumonia. Acutely, she has had multiple recent respiratory complaints and presents with worsening shortness of breath. She had waxing and waning of respiratory issues for the last several months and has been martín gnosed with pneumonia on numerous occasions. She has a history of CHF, but she has dyspnea on exerti on worsening over the last several days. She has fever and chills. She also has a cough. She was s een 5 days prior to admission in the emergency room and was diagnosed with pneumonia and bronchitis a nd discharged on Levaquin. She comes in worse today with increasing shortness of breath. She could only speak 1 to 2-word sentences. She denies chest pain, abdominal pain or focal deficits. PAST MEDICAL HISTORY: As outlined. FAMILY HISTORY: Noncontributory. SOCIAL HISTORY: She drinks occasionally alcohol. She does not smoke or abuse drugs. ALLERGIES: PENICILLIN. SHE GETS SHORT OF BREATH, DIZZY, INCREASED BLOOD PRESSURE. PHYSICAL EXAMINATION: GENERAL: The patient is a cachectic elderly female. VITAL SIGNS: T-max of 99.8. SKIN: Without generalized rash. HEENT: Within normal limits. NECK: Supple. LYMPH NODES: None palpable. CHEST: Decreased breath sounds at the bases. HEART: Without murmur or gallop. ABDOMEN: Soft, nontender without organosplenomegaly or masses. EXTREMITIES: Without cyanosis, clubbing or edema. RECTAL AND GENITAL: Deferred. NEUROLOGICAL: No focal neurological abnormality. ANCILLARY LABORATORY DATA: Her white count is 12.6, H and H of 12.4 and 38.8, platelet count 96,000. BUN and creatinine is 15/0.9. As noted, her white count was 12.6. She had 86% neutrophils. Her u rine showed trace leukocyte esterase and only 4 white cells per high-power field. The patient was on Levaquin. As noted, she has leukocytosis with left shift. DIAGNOSTIC DATA: Her chest x-ray showed severe bilateral pneumonia, airspace disease consistent with pulmonary edema or bilateral pneumonia; otherwise unremarkable. CT angiogram: No pulmonary emboli identified, extensive bilateral ground glass opacification throughout the lungs bilaterally, relative sparing of the periphery in lung apices. Findings may represent pulmonary edema or infectious etiol ogy. ARDS may have a similar imaging appearance and should be considered, morphologic changes of cir rhosis and additional findings as above as noted. IMPRESSION AND PLAN: The patient was started on BiPAP in the emergency room. She was seen by nurse practitioner, Carlie. She needed BiPAP. She is being seen by Dr. Lepe for pulmonary and Dr. Vicenta rivers for congestive heart failure. Her blood cultures are negative. Urine cultures are negative a nd she is currently just on Levaquin. We are going to switch her to meropenem. I will dictate my fi ndings to Dr. Campos and nurse practitioner Carlie as well as to Dr. Lepe and Dr. Alford. Dictated By: DARYN BRADLEY MD, JD/NTS Conf#: [id number] DID#: [id number] CC: TAMMY WORLEY MD; GURMEET CAMPOS MD;*[facility]*
[2018-05-24] MEDS: MEROPENEM 1 GM/50ML(PMX) 50 ML IVPB SCH ×2 (16:24→20:43)
--- NOTE | 2018-05-24 17:02 | CONS ---
DATE OF ADMISSION: 05/23/2018 DATE OF CONSULTATION: REASON FOR CONSULTATION: Shortness of breath. Thank you, Dr. Santiago, for this consultation. HISTORY OF PRESENT ILLNESS: This is an 82-year-old lady with multiple medical problems admitted with increasing shortness of breath, orthopnea, PND, found to have significant hypoxemia. Chest x-ray de monstrating bilateral infiltrates and mild leukocytosis. The patient is a poor historian, unable to give me further details. PAST MEDICAL HISTORY: Includes: 1. Coronary artery disease. 2. Cholecystectomy. 3. History of left knee replacement. 4. Prior history of pneumonia. MEDICATIONS: Per chart. ALLERGIES: PENICILLIN. SOCIAL HISTORY: She is a nonsmoker, no alcohol, no history of drug use. FAMILY HISTORY: Noncontributory. SYSTEMS REVIEW: A 12-point review of systems was negative other than mentioned above. PHYSICAL EXAMINATION: GENERAL: Well-nourished, well-developed lady, appears comfortable at rest, no acute distress. VITAL SIGNS: Currently afebrile, pulse is 80, blood pressure 101/52, O2 saturation 96%, FIO2 of 60%. NECK: Supple, no JVD or lymphadenopathy. CARDIAC: S1, S2, no added sounds or murmurs. CHEST: Diminished air entry bilaterally. ABDOMEN: Soft, nontender. No guarding or rebound. EXTREMITIES: No cyanosis, clubbing or edema. NEUROLOGIC: Grossly intact. No focal deficits. LABORATORY DATA: White count 11.2, hemoglobin 11.3, platelets of 90, BUN 17, creatinine 0.84. Lacti c acid 3.6, down from 7.1. DIAGNOSTIC DATA: Chest CT shows bilateral infiltrates, possible ARDS. IMPRESSION: 1. Acute hypoxemic respiratory failure, probably secondary to pulmonary edema. 2. History of congestive heart failure. 3. Incomplete data. RECOMMENDATIONS: 1. Echocardiogram. 2. Diuretics. 3. Supplemental O2. 4. Antibiotics per primary team. 5. DVT and GI prophylaxis. 6. Trial of high flow O2. Transition from bilevel ventilation. Dictated By: MARIA GUADALUPE PAUL MD SV/NTS Conf#: [id number] DID#: [id number] CC: TAMMY WORLEY MD;*EndCC*
[2018-05-24] MEDS: FUROSEMIDE 20 MG INJ IV SCH (17:06)
--- NOTE | 2018-05-24 18:31 | CONS ---
DATE OF ADMISSION: 05/23/2018 DATE OF CONSULTATION: 05/24/2018 REASON FOR CONSULTATION: Congestive heart failure. REQUESTING PHYSICIAN: Dr. Campos. HISTORY OF PRESENT ILLNESS: Ms. Bond is an 82-year-old female with a history of hypothyroidi sm, cirrhosis, former ETOH abuse, degenerative joint disease, coronary artery disease, congestive hea rt failure who presented with complaints of worsening shortness of breath, dizziness, generalized exh austion. Upon arrival in the emergency department, temperature 98.8, blood pressure 109/42, pulse 10 6, respiratory rate16. The patient's labs were notable for white count 12.6, hemoglobin 12.4, platel et count of 96. Sodium 138, potassium 3.9, creatinine of 0.9, BUN 15, T bilirubin 1.7, AST 95, ALT 3 8. BNP of 1630, INR 1.66. UA borderline. The patient underwent a CTA revealing no pulmonary emboli identified at the level of the proximal segment arteries, extensive bilateral ground glass opacifica tion throughout the lungs bilaterally, relative sparing of the periphery in lung apices, may represen t pulmonary edema effects. ARDS may have similar appearance, morphologic changes of cirrhosis and a chest x-ray that revealed severe bilateral pulmonary airspace disease consistent with pulmonary edema or bilateral pneumonia. The patient's electrocardiogram revealed normal sinus rhythm, rate 94, norm al axis and intervals, with flattening in aVL. The patient was subsequently admitted to the floor an d since admit to floor has required BiPAP. The patient has been placed on Lasix diuresis. PAST MEDICAL HISTORY: As above in HPI. MEDICATIONS CURRENTLY IN HOSPITAL: 1. daily. 2. Lasix 20 mg IV b.i.d. 3. Meropenem. 4. Lovenox 30 mg subq daily. 5. Synthroid. 6. Albuterol. 7. Morphine p.r.n. 8. Tylenol p.r.n. MEDICATIONS PRIOR TO ADMIT: 1. Levofloxacin. 2. Albuterol. 3. Tylenol. 4. Protonix. 5. Synthroid. ALLERGIES: PENICILLIN. SOCIAL HISTORY: No current tobacco, ETOH or illicit drug use. FAMILY HISTORY: No history of sudden cardiac or early CAD. REVIEW OF SYSTEMS: As above in HPI. CONSTITUTIONAL: No fevers, chills. PULMONARY: Positive shortness of breath. CARDIOVASCULAR: No current chest pain. Congestive heart failure. GASTROINTESTINAL: Cirrhosis. GENITOURINARY: No hematuria. MUSCULOSKELETAL: Degenerative joint disease. PSYCHIATRIC: No documented psych history. NEUROLOGIC: No documented history of CVA. ENDOCRINE: Hypothyroidism. PHYSICAL EXAMINATION: VITAL SIGNS: Temperature of 98.2, blood pressure 106/51, pulse 85, respiratory rate 18, sat 97%. GENERAL: The patient is alert, awake, complaining of shortness of breath. NECK: JVP approximately 9 cm of water. CHEST: Upper chest rhonchus sounds. Decreased breath sounds at bases bilaterally. HEART: Regular rate and rhythm. Normal S1, increased S2, I/ systolic murmur. ABDOMEN: Positive bowel sounds, soft, ascites. EXTREMITIES: 1+ edema, 1+ pulses bilaterally in posterior tibial. LABORATORY DATA: Most recent from today, sodium 138, potassium 4.1, creatinine of 0.84, BUN 17, AST of 73, ALT 40, alkaline phosphatase 151. White blood cell count 11.2, hemoglobin 11.3, platelet coun t of 90. IMAGING STUDIES: As above in HPI. No further imaging studies for my review at this time. ECG: As above in HPI. No further electrocardiograms for my review at this time. IMPRESSION: 1. Congestive heart failure exacerbation with an echo from 2016, at that time revealing a pres erved EF and had a mild to moderate aortic stenosis. Thus, possibly diastolic, acute on chronic. 2. Shortness of breath secondary to #1. 3. Tachycardia on admit. Sinus tachycardia, now improved. 4. Hypothyroidism. 5. Cirrhosis. 6. Leukocytosis. 7. Anemia and thrombocytopenia. 8. Coagulopathy. RECOMMENDATIONS: 1. At this time, would maintain the patient on telemetry monitoring to follow rhythm and rate contro l closely. 2. Would check serial EKGs to assess for any significant ongoing changes; an EKG in the morning, EKG for any complaints of chest pain or change in rhythm. 3. Continue the patient's Lasix diuresis and consider increase in dose to improve overall output. W e will follow at this time. Continue the patient's Lasix diuresis, following strict I's and O's, cre atinine to grade diuresis closely. 4. Check a 2D echo for this patient's ejection fraction, wall motion, rule any major valve abnormali ties. 5. Continue the patient's antibiotics and follow up all culture data. 6. Check her TSH to assess patient's current thyroid state and its possible contribution to the nadege ent's presentation. 7. We will check a fasting lipid panel for general risk stratification and initiate lipid medication as necessary. Thank you for allowing me to take part in the care of this patient. I will continue to follow very c losely with you with further recommendations to be made as the patient progresses through her [facility] clinical course. Dictated By: JOSE M ZENG MD JH/NTS Conf#: [id number] DID#: [id number] CC: GURMEET CAMPOS MD; TAMMY WORLEY MD;*EndCC*
[2018-05-24] MEDS ORDERED: morphine LIQ (10 MG/5 ML) CUP PO PRN (23:00)
[2018-05-25] VITALS (17 sets, daily range): BP systolic 99–117; BP diastolic 42–58; PULSE 67–106; RESP 17–40
[2018-05-25] MEDS: LEVOTHYROXINE 125 MCG TAB PO SCH (06:27)
[2018-05-25] MEDS: FUROSEMIDE 20 MG INJ IV SCH ×2 (06:28→17:24)
[2018-05-25] MEDS: FAMOTIDINE 20 MG TAB PO SCH (08:10)
[2018-05-25] MEDS: MEROPENEM 1 GM/50ML(PMX) 50 ML IVPB SCH ×2 (08:10→20:30)
[2018-05-25] MEDS: ENOXAPARIN 30 MG/0.3 ML SYG SC SCH (08:27)
--- NOTE | 2018-05-25 09:07 | CONS ---
Consult Date/Type/Reason Admit Date/Time May 23, 2018 at 14:40 Initial Consult Date Date/Time of Note DATE: 05/25/18 TIME: 09:05 Subjective NO acute events - no ectopy on tele - stable urine output now. ROS: No fever, no chills, no nausea, no vomiting, no diarrhea/constipation No recent weight changes No chest pain, no PND, no orthopnea - improved SOB No dizziness, blurred vision No thirst, no heat or cold intolerance Objective Vitals Vital Signs Date Temp Pulse Resp B/P (MAP) Pulse Ox O2 O2 Flow FiO2 Time Delivery Rate 05/25/18 97.6 91 20 117/58 100 Nasal 07:51 (77) Cannula 05/25/18 100 05:35 05/23/18 10 12:00 Intake and Output 05/24/18 05/24/18 05/25/18 1515:00 23:00 07:00 IntakeIntake Total 650 ml 240 ml BalanceBalance 650 ml 240 ml Exam General: WN/WD/NAD, AOx 2-3 HEENT: Unicetric/atraumatic/EOMI (follow commands) NECK: JVD elevated, no thyromegaly Lymph: no lymphadenopathy HEART: regular with no S3, II/ systolic murmur at apex LUNGS: Coarse sounds ABD: soft, NT, ND, +BS : Intact Neuro: non focal SKIN: chronic changes EXT: mild edema Results/Medications Result Diagram: 05/25/18 0552 05/25/18 0552 Results 24 hrs Laboratory Tests Test 05/24/18 18:48 05/25/18 00:21 05/25/18 05:52 05/25/18 07:00 Troponin I 0.029 0.039 0.028 White Blood Count 10.9 H Red Blood Count 3.12 L Hemoglobin 11.1 L Hematocrit 34.2 L Mean Corpuscular 109.6 H Volume Mean Corpuscular 35.6 H Hemoglobin Mean Corpuscular 32.5 Hemoglobin Concen t Red Cell 15.1 H Distribution Width Platelet Count 84 L Mean Platelet 11.5 H Volume Immature 0.900 H Granulocytes % Neutrophils % 86.7 H Segmented 85 H Neutrophils % (Manual) Band Neutrophils 9 H % (Manual) Lymphocytes % 8.6 L Lymphocytes % 2 L (Manual) Reactive 2 H Lymphocytes % (Manual) Monocytes % 2.9 Monocytes % 2 (Manual) Eosinophils % 0.6 Basophils % 0.3 Nucleated Red 0.0 Blood Cells % Immature 0.100 H Granulocytes # Neutrophils # 9.4 H Neutrophils # 9.4 H (Manual) Band Neutrophils 0.9 H # Lymphocytes 0.2 L (Manual) Lymphocytes # 0.9 Reactive 0.2 H Lymphocytes # Monocytes # 0.3 Monocytes # 0.2 L (Manual) Eosinophils # 0.1 Basophils # 0.0 Nucleated Red 0.0 Blood Cells # Platelet Estimate DECREASED Giant Platelets 3 H Polychromasia 3+ Anisocytosis 1+ Macrocytosis 1+ Rouleau 1+ Sodium Level 138 Potassium Level 4.2 Chloride Level 109 Carbon Dioxide 26 Level Anion Gap 3 L Blood Urea 21 H Nitrogen Creatinine 0.96 Est Glomerular Filtrat Rate mL/min Glucose Level 88 Calcium Level 8.0 L Phosphorus Level 3.2 Magnesium Level 2.1 Blood Gas Blood arterial Specimen Source Arterial Blood 05/25/2018 7:36:2 Date Drawn 5 AM Arterial Blood pH 7.390 (Temp corrected) Arterial Blood 42.9 pCO2 (Temp correct) Arterial Blood 61.0 L pO2 (Temp corrected) Arterial Blood 25.4 HCO3 Arterial Blood 0.3 Base Excess Arterial Blood 90.3 L Oxygen Saturation Randy Test ACCEPTAB Arterial Blood Right Radial Gas Puncture Site Arterial 0.2 Blood Carboxyhemo globin Arterial Blood 0.3 Methemoglobin Blood Gas A-a O2 609.1 H Differential Oxyhemoglobin 89.8 L Percent Blood Gas 37.0 Temperature Blood Gas HFNC Modality FiO2 100.0 Blood Gas TM Notified Whom Blood Gas 05/25/2018 7:46:5 Notified Time 8 AM Home Meds Active Scripts Albuterol Sulfate* (Proair HFA*) 8.5 Gm Hfa.aer.ad, 2 PUFF INH Q4H PRN for WHEEZING AND SOB, #1 INHALER Prov:NATI DREW MD 05/18/18 Acetaminophen* (Tylenol*) 325 Mg Tablet, 2 TAB PO Q8 PRN for PAIN AND OR ELEVATED TEMP, #20 TAB Prov:NATI DREW MD 05/18/18 Levofloxacin* (Levaquin*) 750 Mg Tablet, 750 MG PO DAILY for 7 Days, TAB Prov:NATI DREW MD 05/18/18 Pantoprazole* (Protonix*) 40 Mg Tablet.dr, 40 MG PO DAILY for 60 Days, TAB Prov:STAR WERNERA 12/23/17 Levothyroxine Sodium* (Levothyroxine Sodium*) 125 Mcg Tablet, 125 MCG PO BEFORE BREAKFAST, #60 TAB Prov:RADHA WERNERLANA 12/23/17 Reported Medications Acetaminophen (MAPAP) 325 Mg Tablet, 325 MG PO, TAB 05/23/18 Ranitidine Hcl* (Ranitidine Hcl*) 75 Mg Tablet, 75 MG PO BID PRN for HEARTBURN, #60 TAB 05/23/18 Discontinued Reported Medications Ibuprofen* (Advil*) 200 Mg Capsule, 200 MG PO Q6H PRN for PAIN, CAP 12/15/17 Discontinued Scripts Inhaler, Assist Devices (Compact Space Chamber) 1 Each Spacer, EACH MC Q4H WHILE AWAKE PRN for COUGH, #1 Prov:NATI DREW MD 05/18/18 Medications Current Medications IV Flush (NS 3 ml) 3 ml PER PROTOCOL IV ; Start 05/23/18 at 16:00 Ondansetron HCl (Zofran Inj) 4 mg Q6H PRN IV NAUSEA/VOMITING; Start 05/23/18 at 16:00 Acetaminophen (Tylenol Tab) 650 mg Q6H PRN PO .PAIN 1-3 OR TEMP; Start 05/23/18 at 16:00 Enoxaparin Sodium (Lovenox) 30 mg DAILY SC Last administered on 05/25/18at 08:27; Admin Dose 30 MG; Start 05/24/18 at 09:00 Albuterol (Ventolin Hfa) 2 puff Q4H PRN INH WHEEZING AND SOB; Start 05/23/18 at 21:00 Levothyroxine Sodium (Synthroid) 125 mcg BEFORE BREAKFAST PO Last administered on 05/25/18at 06:27; Admin Dose 125 MCG; Start 05/24/18 at 07:00 Meropenem/Sodium Chloride 50 ml @ 100 mls/hr Q12 IVPB Last administered on 05/25/18at 08:10; Admin Dose 100 MLS/HR; Start 05/24/18 at 15:30 Famotidine (Pepcid) 20 mg DAILY PO Last administered on 05/25/18at 08:10; Admin Dose 20 MG; Start 05/25/18 at 09:00 Furosemide (Lasix) 20 mg BID DIURETICS IV Last administered on 05/25/18at 06:28; Admin Dose 20 MG; Start 05/24/18 at 18:00 Morphine Sulfate (morphine) 6 mg Q4H PRN PO SEVERE PAIN LEVEL 7-10; Start 05/24/18 at 23:00 Assessment/Plan Hospital Course (Demo Recall) 1. Congestive heart failure exacerbation with an echo from 2016 - preserved EF and had a mild to moderate aortic stenosis. Thus, possibly diastolic, acute on chronic. Better now, stable urine output. 2. Shortness of breath secondary to #1 - improved with Rx. 3. Tachycardia on admit. Sinus tachycardia, now improved.Rate controlled now. 4. Hypothyroidism - replace as needed. 5. Cirrhosis - avoid hepatotoxic meds. 6. Leukocytosis. 7. Anemia and thrombocytopenia - no active bleeding noted. 8. Coagulopathy. MACKENZIE LOPEZ MD May 25, 2018 09:07
--- NOTE | 2018-05-25 11:48 | CONS ---
Consult Date/Type/Reason Admit Date/Time May 23, 2018 at 14:40 Initial Consult Date Type of Consult Pulmonary Date/Time of Note DATE: 05/25/18 TIME: 11:46 Subjective All remains on high flow O2 ventilation. Opens eyes to voice no accessory muscle use. Currently on 40 L at 100%. Objective Vital Signs Date Temp Pulse Resp B/P (MAP) Pulse Ox O2 O2 Flow FiO2 Time Delivery Rate 05/25/18 100 100 11:43 05/25/18 97.6 91 20 101/56 11:34 (71) 05/25/18 Nasal 07:51 Cannula 05/23/18 10 12:00 Intake and Output 05/24/18 05/24/18 05/25/18 1515:00 23:00 07:00 IntakeIntake Total 650 ml 240 ml BalanceBalance 650 ml 240 ml Exam GENERAL: Frail elderly lady o high flow O2 VITAL SIGNS: per chart NECK: Supple. No JVD or lymphadenopathy. CARDIAC EXAM: S1, S2. No added sounds or murmurs. CHEST: Diminished air entry bilaterally with rales ABDOMEN: Soft, nontender. No guarding or rebound. EXTREMITIES: No cyanosis, clubbing or edema. NEUROLOGIC: Generalized weakness. No focal deficits. Vent Setting Fraction of Inspired Oxygen pe: 100 Results/Medications Result Diagram: 05/25/1855105/25/1852 Results 24 hrs Laboratory Tests Test 05/24/18 18:48 05/25/18 00:21 05/25/18 05:52 05/25/18 07:00 Troponin I 0.029 0.039 0.028 White Blood Count 10.9 H Red Blood Count 3.12 L Hemoglobin 11.1 L Hematocrit 34.2 L Mean Corpuscular 109.6 H Volume Mean Corpuscular 35.6 H Hemoglobin Mean Corpuscular 32.5 Hemoglobin Concen t Red Cell 15.1 H Distribution Width Platelet Count 84 L Mean Platelet 11.5 H Volume Immature 0.900 H Granulocytes % Neutrophils % 86.7 H Segmented 85 H Neutrophils % (Manual) Band Neutrophils 9 H % (Manual) Lymphocytes % 8.6 L Lymphocytes % 2 L (Manual) Reactive 2 H Lymphocytes % (Manual) Monocytes % 2.9 Monocytes % 2 (Manual) Eosinophils % 0.6 Basophils % 0.3 Nucleated Red 0.0 Blood Cells % Immature 0.100 H Granulocytes # Neutrophils # 9.4 H Neutrophils # 9.4 H (Manual) Band Neutrophils 0.9 H # Lymphocytes 0.2 L (Manual) Lymphocytes # 0.9 Reactive 0.2 H Lymphocytes # Monocytes # 0.3 Monocytes # 0.2 L (Manual) Eosinophils # 0.1 Basophils # 0.0 Nucleated Red 0.0 Blood Cells # Platelet Estimate DECREASED Giant Platelets 3 H Polychromasia 3+ Anisocytosis 1+ Macrocytosis 1+ Rouleau 1+ Sodium Level 138 Potassium Level 4.2 Chloride Level 109 Carbon Dioxide 26 Level Anion Gap 3 L Blood Urea 21 H Nitrogen Creatinine 0.96 Est Glomerular Filtrat Rate mL/min Glucose Level 88 Calcium Level 8.0 L Phosphorus Level 3.2 Magnesium Level 2.1 Blood Gas Blood arterial Specimen Source Arterial Blood 05/25/2018 7:36:2 Date Drawn 5 AM Arterial Blood pH 7.390 (Temp corrected) Arterial Blood 42.9 pCO2 (Temp correct) Arterial Blood 61.0 L pO2 (Temp corrected) Arterial Blood 25.4 HCO3 Arterial Blood 0.3 Base Excess Arterial Blood 90.3 L Oxygen Saturation Randy Test ACCEPTAB Arterial Blood Right Radial Gas Puncture Site Arterial 0.2 Blood Carboxyhemo globin Arterial Blood 0.3 Methemoglobin Blood Gas A-a O2 609.1 H Differential Oxyhemoglobin 89.8 L Percent Blood Gas 37.0 Temperature Blood Gas HFNC Modality FiO2 100.0 Blood Gas TM Notified Whom Blood Gas 05/25/2018 7:46:5 Notified Time 8 AM Medications Current Medications IV Flush (NS 3 ml) 3 ml PER PROTOCOL IV ; Start 05/23/18 at 16:00 Ondansetron HCl (Zofran Inj) 4 mg Q6H PRN IV NAUSEA/VOMITING; Start 05/23/18 at 16:00 Acetaminophen (Tylenol Tab) 650 mg Q6H PRN PO .PAIN 1-3 OR TEMP; Start 05/23/18 at 16:00 Enoxaparin Sodium (Lovenox) 30 mg DAILY SC Last administered on 05/25/18at 08:27; Admin Dose 30 MG; Start 05/24/18 at 09:00 Albuterol (Ventolin Hfa) 2 puff Q4H PRN INH WHEEZING AND SOB; Start 05/23/18 at 21:00 Levothyroxine Sodium (Synthroid) 125 mcg BEFORE BREAKFAST PO Last administered on 05/25/18at 06:27; Admin Dose 125 MCG; Start 05/24/18 at 07:00 Meropenem/Sodium Chloride 50 ml @ 100 mls/hr Q12 IVPB Last administered on 05/25/18at 08:10; Admin Dose 100 MLS/HR; Start 05/24/18 at 15:30 Famotidine (Pepcid) 20 mg DAILY PO Last administered on 05/25/18at 08:10; Admin Dose 20 MG; Start 05/25/18 at 09:00 Furosemide (Lasix) 20 mg BID DIURETICS IV Last administered on 05/25/18 06:28; Admin Dose 20 MG; Start 05/24/18 at 18:00 Morphine Sulfate (morphine) 6 mg Q4H PRN PO SEVERE PAIN LEVEL 7-10; Start 05/24/18 at 23:00 Assessment/Plan Hospital Course (Demo Recall) IMPRESSION: 1. Acute hypoxemic respiratory failure, probably secondary to pulmonary edema. 2. Possible component of aspiration pneumonia 3. Preserved ejection fraction with mild to moderate aortic stenosis RECOMMENDATIONS: 1. Echocardiogram. Cardiology recommendations 2. Diuretics. 3. Supplemental O2. 4. Antibiotics per primary team. Additional steroids 5. DVT and GI prophylaxis. 6. Trial of high flow O2. Transition from bilevel ventilation. Possible component of pneumonitis Prognosis guarded consider discussion with family regarding goals of care. MARIA GUADALUPE PAUL MD, [facility] May 25, 2018 11:48
[2018-05-25] MEDS: METHYLPREDNISOLONE 40 MG INJ IV SCH ×2 (11:56→17:24)
--- NOTE | 2018-05-25 13:21 | CONS ---
Assessment/Plan Assessment/Plan Hospital Course (Demo Recall) Patient is lying comfortably in bed she is on high flow oxygen in no distress no fevers WBC 10.9 H&H 11.1 and 34.2 platelets 84 neutrophils 86.7 BUN 21 creatinine 0.96 Microbiology blood cultures remain negative urinalysis on admission was positive for leukocyte Estrace, urine culture consistent with contaminant Chest x-ray revealed stable to slight interval worsening of diffuse groundglass opacity Allergy: Penicillin Antimicrobials: Meropenem Physical examination: This is an obese well-developed elderly woman who is lying comfortably in bed head atraumatic normocephalic neck is supple chest rise symmetrical breath sounds diminished bases heart: S1-S2. Abdomen soft bowel sounds present. Extremities no cyanosis Assessment: 1. Acute hypoxemic respiratory failure 2. Pulmonary edema 3. Pneumonia 4. Mild to moderate aortic stenosis 5. Cirrhosis 6. Urinary tract infection Plan: Remains unchanged, continue present care, steroids, antibiotics, repeat urine culture, follow pulmonary and cardiology recommendations Consultation Date/Type/Reason Admit Date/Time May 23, 2018 at 14:40 Initial Consult Date Type of Consult id Date/Time of Note DATE: 05/25/18 TIME: 13:20 Exam/Review of Systems Exam Vitals Vital Signs Date Temp Pulse Resp B/P (MAP) Pulse Ox O2 O2 Flow FiO2 Time Delivery Rate 05/25/18 100 100 11:43 05/25/18 97.6 91 20 101/56 11:34 (71) 05/25/18 Nasal 07:51 Cannula 05/23/18 10 12:00 Intake and Output 05/24/18 05/24/18 05/25/18 1515:00 23:00 07:00 IntakeIntake Total 650 ml 240 ml BalanceBalance 650 ml 240 ml Results Result Diagram: 05/25/18 0552 05/25/18 0552 Results 24hrs Laboratory Tests Test 05/24/18 18:48 05/25/18 00:21 05/25/18 05:52 05/25/18 07:00 Troponin I 0.029 0.039 0.028 White Blood Count 10.9 H Red Blood Count 3.12 L Hemoglobin 11.1 L Hematocrit 34.2 L Mean Corpuscular 109.6 H Volume Mean Corpuscular 35.6 H Hemoglobin Mean Corpuscular 32.5 Hemoglobin Concen t Red Cell 15.1 H Distribution Width Platelet Count 84 L Mean Platelet 11.5 H Volume Immature 0.900 H Granulocytes % Neutrophils % 86.7 H Segmented 85 H Neutrophils % (Manual) Band Neutrophils 9 H % (Manual) Lymphocytes % 8.6 L Lymphocytes % 2 L (Manual) Reactive 2 H Lymphocytes % (Manual) Monocytes % 2.9 Monocytes % 2 (Manual) Eosinophils % 0.6 Basophils % 0.3 Nucleated Red 0.0 Blood Cells % Immature 0.100 H Granulocytes # Neutrophils # 9.4 H Neutrophils # 9.4 H (Manual) Band Neutrophils 0.9 H # Lymphocytes 0.2 L (Manual) Lymphocytes # 0.9 Reactive 0.2 H Lymphocytes # Monocytes # 0.3 Monocytes # 0.2 L (Manual) Eosinophils # 0.1 Basophils # 0.0 Nucleated Red 0.0 Blood Cells # Platelet Estimate DECREASED Giant Platelets 3 H Polychromasia 3+ Anisocytosis 1+ Macrocytosis 1+ Rouleau 1+ Sodium Level 138 Potassium Level 4.2 Chloride Level 109 Carbon Dioxide 26 Level Anion Gap 3 L Blood Urea 21 H Nitrogen Creatinine 0.96 Est Glomerular Filtrat Rate mL/min Glucose Level 88 Calcium Level 8.0 L Phosphorus Level 3.2 Magnesium Level 2.1 Blood Gas Blood arterial Specimen Source Arterial Blood 05/25/2018 7:36:2 Date Drawn 5 AM Arterial Blood pH 7.390 (Temp corrected) Arterial Blood 42.9 pCO2 (Temp correct) Arterial Blood 61.0 L pO2 (Temp corrected) Arterial Blood 25.4 HCO3 Arterial Blood 0.3 Base Excess Arterial Blood 90.3 L Oxygen Saturation Randy Test ACCEPTAB Arterial Blood Right Radial Gas Puncture Site Arterial 0.2 Blood Carboxyhemo globin Arterial Blood 0.3 Methemoglobin Blood Gas A-a O2 609.1 H Differential Oxyhemoglobin 89.8 L Percent Blood Gas 37.0 Temperature Blood Gas HFNC Modality FiO2 100.0 Blood Gas TM Notified Whom Blood Gas 05/25/2018 7:46:5 Notified Time 8 AM Medications Medication Current Medications IV Flush (NS 3 ml) 3 ml PER PROTOCOL IV ; Start 05/23/18 at 16:00 Ondansetron HCl (Zofran Inj) 4 mg Q6H PRN IV NAUSEA/VOMITING; Start 05/23/18 at 16:00 Acetaminophen (Tylenol Tab) 650 mg Q6H PRN PO .PAIN 1-3 OR TEMP; Start 05/23/18 at 16:00 Enoxaparin Sodium (Lovenox) 30 mg DAILY SC Last administered on 05/25/18 08:27; Admin Dose 30 MG; Start 05/24/18 at 09:00 Albuterol (Ventolin Hfa) 2 puff Q4H PRN INH WHEEZING AND SOB; Start 05/23/18 at 21:00 Levothyroxine Sodium (Synthroid) 125 mcg BEFORE BREAKFAST PO Last administered on 05/25/18 06:27; Admin Dose 125 MCG; Start 05/24/18 at 07:00 Meropenem/Sodium Chloride 50 ml @ 100 mls/hr Q12 IVPB Last administered on 05/14 08:10; Admin Dose 100 MLS/HR; Start 05/24/18 at 15:30 Famotidine (Pepcid) 20 mg DAILY PO Last administered on 05/25/18 08:10; Admin Dose 20 MG; Start 05/25/18 at 09:00 Furosemide (Lasix) 20 mg BID DIURETICS IV Last administered on 05/25/18 06:28; Admin Dose 20 MG; Start 05/24/18 at 18:00 Morphine Sulfate (morphine) 6 mg Q4H PRN PO SEVERE PAIN LEVEL 7-10; Start 05/24/18 at 23:00 Methylprednisolone Sodium Succinate (Solu-Medrol) 40 mg Q6 IV Last administered on 05/25/18 11:56; Admin Dose 40 MG; Start 05/25/18 at 12:00 MORGAN CORDOBA NP May 25, 2018 13:21
--- NOTE | 2018-05-25 13:31 | RADRPT ---
Echocardiogram Report Patient Name: CALLI HALLPatient ID: [id number] : 1935 (82y 7m)Study Date: 05/24/2018 4:23:28 PM Gender: FAccession #: [id number] Tech: Ricardo Dover [facility] Location: [place] Ref.Physician: MARIA GUADALUPE PAUL Height(Cm): BSA: Weight(Kg): Quality: AdequateAccount #: Procedures: Echocardiographic Report: Transthoracic echocardiogram with complete 2D, M-Mode, and doppler examination. Indications: Congestive Heart Failure. Measurements: 2D/M Mode Doppler Measurement Value Normal Range Measurement Value Normal Range LVIDd 2D 4.2 [ 3.8 - 5.2 ] cm BRII VTI 1.1 [ 2.0 - 4.0 ] cm2 LVIDs 2D 3.0 [ 2.2 - 3.5 ] cm AV Mean Mike 2.5 [ 70.0 - 90.0 ] cm/sec LVPWd 2D 0.8 [ 0.6 - 0.9 ] cm AV Mean PG 29.0 [ 2.0 - 4.0 ] mmHg IVSd 2D 0.8 [ 0.6 - 0.9 ] cm AV VTI 81.5 cm AoR Diam 2D 2.8 [ 2.3 - 3.1 ] cm LVOT Mean Mike 0.8 [ 60.0 - 80.0 ] cm/sec EDV 2D 78.6 [ 46.0 - 106.0 ] ml LVOT Mean PG 3.0 [ 1.0 - 3.0 ] mmHg ESV 2D 35.6 [ 14.0 - 42.0 ] ml LVOT Peak Mike 1.1 [ 70.0 - 110.0 ] cm/sec EF 2D 54.7 [ 54.0 - 74.0 ] percent LVOT Peak PG 5.0 [ 2.0 - 6.0 ] mmHg LA Dimen 2D 3.4 [ 2.7 - 3.8 ] cm LVOT VTI 27.5 [ 20.0 - 30.0 ] cm LVOT Diam 2.0 [ 2.1 - 2.5 ] cm MV E Peak Mike 1.1 [ 60.0 - 130.0 ] cm/sec MV A Peak Mike 1.0 [ 100.0 - 120.0 ] cm/sec MV E/A 1.1 [ 0.8 - 1.5 ] ratio MV Decel Time 239 [ 104 - 258 ] msec Lat E` Mike 0.1 [ 10.0 - 15.0 ] cm/sec Lateral E/E` 13.0 [ 1.0 - 2.0 ] ratio Med E` Mike 0.1 cm/sec MV E/A 1.1 [ 0.8 - 1.5 ] ratio TR Peak Mike 3.8 [ 100.0 - 280.0 ] cm/sec TR Peak PG 58.0 mmHg RVSP 61.0 [ 10.0 - 36.0 ] mmHg Findings: Left Ventricle: Normal left ventricular systolic function. Normal left ventricular cavity size. Normal left ventricular wall thickness. Ejection fraction is visually estimated at 60 %. Tissue Doppler/Mitral Doppler indices are consistent with impaired relaxation (Stage I diastolic dysfunction). Right Ventricle: Normal right ventricular size. Normal right ventricular systolic function. Left Atrium: The left atrium is normal in size. Right Atrium: The right atrium is normal in size. Mitral Valve: Mild mitral leaflet calcification. Mild mitral annular calcification. Trace mitral regurgitation. Aortic Valve: Moderate aortic stenosis. Aortic cusps appear moderately calcified. Trace aortic valve regurgitation. Tricuspid Valve: Normal appearance of the tricuspid valve. Estimated peak PA systolic pressure 61 mmHg. There is mild tricuspid regurgitation. Pulmonic Valve: Pulmonic valve not well visualized. Pericardium: Normal pericardium with no significant pericardial effusion. Aorta: Normal aortic root. IVC: Normal IVC with respiratory collapse, however patient on C-PAP. Conclusions: Normal left ventricular systolic function. Normal left ventricular cavity size. Normal left ventricular wall thickness. Ejection fraction is visually estimated at 60 %. Tissue Doppler/Mitral Doppler indices are consistent with impaired relaxation (Stage I diastolic dysfunction). Normal right ventricular size. Normal right ventricular systolic function. The left atrium is normal in size. The right atrium is normal in size. Moderate aortic stenosis. Trace aortic valve regurgitation. Trace mitral regurgitation. Estimated peak PA systolic pressure 61 mmHg. There is mild tricuspid regurgitation. Normal pericardium with no significant pericardial effusion. Electronically Signed By: Rory Fontaine 2018-05-25 13:30:19 PST
--- NOTE | 2018-05-25 15:49 | PN ---
Date/Time of Note Date/Time of Note DATE: 05/25/18 TIME: 15:47 Assessment/Plan VTE Prophylaxis Risk score (from Ns)>0 risk: 2 SCD applied (from Ns): Yes Pharmacological prophylaxis: LMWH Lines/Catheters IV Catheter Type (from [facility]): Saline Lock Urinary Cath still in place: No Assessment/Plan Hospital Course Patient is currently on high flow oxygen, desaturating on 100%, lethargic, confused. We will transfer to ICU. Assessment/Plan -Septic shock. Continue antibiotics per ID. Dr. Akins is following in infection disease consultation. -Community-acquired pneumonia -Acute hypoxemic respiratory failure requiring BiPAP, Dr. Lepe is following in pulmonology consultation. -CHF exacerbation. Dr. Alford is following in cardiology consultation. -Hypothyroidism -Liver cirrhosis Further recommendations based on clinical course. Plan of care discussed with Dr. Santiago. Result Diagram: 05/25/18 0552 05/25/18 0552 Results 24hrs Laboratory Tests Test 05/24/18 18:48 05/25/18 00:21 05/25/18 05:52 05/25/18 07:00 Troponin I 0.029 0.039 0.028 White Blood Count 10.9 H Red Blood Count 3.12 L Hemoglobin 11.1 L Hematocrit 34.2 L Mean Corpuscular 109.6 H Volume Mean Corpuscular 35.6 H Hemoglobin Mean Corpuscular 32.5 Hemoglobin Concen t Red Cell 15.1 H Distribution Width Platelet Count 84 L Mean Platelet 11.5 H Volume Immature 0.900 H Granulocytes % Neutrophils % 86.7 H Segmented 85 H Neutrophils % (Manual) Band Neutrophils 9 H % (Manual) Lymphocytes % 8.6 L Lymphocytes % 2 L (Manual) Reactive 2 H Lymphocytes % (Manual) Monocytes % 2.9 Monocytes % 2 (Manual) Eosinophils % 0.6 Basophils % 0.3 Nucleated Red 0.0 Blood Cells % Immature 0.100 H Granulocytes # Neutrophils # 9.4 H Neutrophils # 9.4 H (Manual) Band Neutrophils 0.9 H # Lymphocytes 0.2 L (Manual) Lymphocytes # 0.9 Reactive 0.2 H Lymphocytes # Monocytes # 0.3 Monocytes # 0.2 L (Manual) Eosinophils # 0.1 Basophils # 0.0 Nucleated Red 0.0 Blood Cells # Platelet Estimate DECREASED Giant Platelets 3 H Polychromasia 3+ Anisocytosis 1+ Macrocytosis 1+ Rouleau 1+ Sodium Level 138 Potassium Level 4.2 Chloride Level 109 Carbon Dioxide 26 Level Anion Gap 3 L Blood Urea 21 H Nitrogen Creatinine 0.96 Est Glomerular Filtrat Rate mL/min Glucose Level 88 Calcium Level 8.0 L Phosphorus Level 3.2 Magnesium Level 2.1 Blood Gas Blood arterial Specimen Source Arterial Blood 05/25/2018 7:36:2 Date Drawn 5 AM Arterial Blood pH 7.390 (Temp corrected) Arterial Blood 42.9 pCO2 (Temp correct) Arterial Blood 61.0 L pO2 (Temp corrected) Arterial Blood 25.4 HCO3 Arterial Blood 0.3 Base Excess Arterial Blood 90.3 L Oxygen Saturation Randy Test ACCEPTAB Arterial Blood Right Radial Gas Puncture Site Arterial 0.2 Blood Carboxyhemo globin Arterial Blood 0.3 Methemoglobin Blood Gas A-a O2 609.1 H Differential Oxyhemoglobin 89.8 L Percent Blood Gas 37.0 Temperature Blood Gas HFNC Modality FiO2 100.0 Blood Gas TM Notified Whom Blood Gas 05/25/2018 7:46:5 Notified Time 8 AM Exam/Review of Systems Exam Vitals Vital Signs Date Temp Pulse Resp B/P (MAP) Pulse Ox O2 O2 Flow FiO2 Time Delivery Rate 05/25/18 Vapotherm 15:18 05/25/18 98.2 87 22 117/54 90 15:18 (75) 05/25/18 100 11:43 05/23/18 10 12:00 Intake and Output 05/24/18 05/24/18 05/25/18 1515:00 23:00 07:00 IntakeIntake Total 650 ml 240 ml BalanceBalance 650 ml 240 ml Exam Constitutional: alert Neck: supple Respiratory: diminished breath sounds Cardiovascular: regular rate and rhythm Gastrointestinal: soft, non-tender Musculoskeletal: nl extremities to inspection Extremities: normal pulses Skin: nl turgor Results Results 24hrs Laboratory Tests Test 05/24/18 18:48 05/25/18 00:21 05/25/18 05:52 05/25/18 07:00 Troponin I 0.029 0.039 0.028 White Blood Count 10.9 H Red Blood Count 3.12 L Hemoglobin 11.1 L Hematocrit 34.2 L Mean Corpuscular 109.6 H Volume Mean Corpuscular 35.6 H Hemoglobin Mean Corpuscular 32.5 Hemoglobin Concen t Red Cell 15.1 H Distribution Width Platelet Count 84 L Mean Platelet 11.5 H Volume Immature 0.900 H Granulocytes % Neutrophils % 86.7 H Segmented 85 H Neutrophils % (Manual) Band Neutrophils 9 H % (Manual) Lymphocytes % 8.6 L Lymphocytes % 2 L (Manual) Reactive 2 H Lymphocytes % (Manual) Monocytes % 2.9 Monocytes % 2 (Manual) Eosinophils % 0.6 Basophils % 0.3 Nucleated Red 0.0 Blood Cells % Immature 0.100 H Granulocytes # Neutrophils # 9.4 H Neutrophils # 9.4 H (Manual) Band Neutrophils 0.9 H # Lymphocytes 0.2 L (Manual) Lymphocytes # 0.9 Reactive 0.2 H Lymphocytes # Monocytes # 0.3 Monocytes # 0.2 L (Manual) Eosinophils # 0.1 Basophils # 0.0 Nucleated Red 0.0 Blood Cells # Platelet Estimate DECREASED Giant Platelets 3 H Polychromasia 3+ Anisocytosis 1+ Macrocytosis 1+ Rouleau 1+ Sodium Level 138 Potassium Level 4.2 Chloride Level 109 Carbon Dioxide 26 Level Anion Gap 3 L Blood Urea 21 H Nitrogen Creatinine 0.96 Est Glomerular Filtrat Rate mL/min Glucose Level 88 Calcium Level 8.0 L Phosphorus Level 3.2 Magnesium Level 2.1 Blood Gas Blood arterial Specimen Source Arterial Blood 05/25/2018 7:36:2 Date Drawn 5 AM Arterial Blood pH 7.390 (Temp corrected) Arterial Blood 42.9 pCO2 (Temp correct) Arterial Blood 61.0 L pO2 (Temp corrected) Arterial Blood 25.4 HCO3 Arterial Blood 0.3 Base Excess Arterial Blood 90.3 L Oxygen Saturation Randy Test ACCEPTAB Arterial Blood Right Radial Gas Puncture Site Arterial 0.2 Blood Carboxyhemo globin Arterial Blood 0.3 Methemoglobin Blood Gas A-a O2 609.1 H Differential Oxyhemoglobin 89.8 L Percent Blood Gas 37.0 Temperature Blood Gas HFNC Modality FiO2 100.0 Blood Gas TM Notified Whom Blood Gas 05/25/2018 7:46:5 Notified Time 8 AM Medications Medication Current Medications IV Flush (NS 3 ml) 3 ml PER PROTOCOL IV ; Start 05/23/18 at 16:00 Ondansetron HCl (Zofran Inj) 4 mg Q6H PRN IV NAUSEA/VOMITING; Start 05/23/18 at 16:00 Acetaminophen (Tylenol Tab) 650 mg Q6H PRN PO .PAIN 1-3 OR TEMP; Start 05/23/18 at 16:00 Enoxaparin Sodium (Lovenox) 30 mg DAILY SC Last administered on 05/25/18 08:27; Admin Dose 30 MG; Start 05/24/18 at 09:00 Albuterol (Ventolin Hfa) 2 puff Q4H PRN INH WHEEZING AND SOB; Start 05/23/18 at 21:00 Levothyroxine Sodium (Synthroid) 125 mcg BEFORE BREAKFAST PO Last administered on 05/25/18 06:27; Admin Dose 125 MCG; Start 05/24/18 at 07:00 Meropenem/Sodium Chloride 50 ml @ 100 mls/hr Q12 IVPB Last administered on 05/25/18 08:10; Admin Dose 100 MLS/HR; Start 05/24/18 at 15:30 Famotidine (Pepcid) 20 mg DAILY PO Last administered on 05/25/18 08:10; Admin Dose 20 MG; Start 05/25/18 at 09:00 Furosemide (Lasix) 20 mg BID DIURETICS IV Last administered on 05/25/18 06:28; Admin Dose 20 MG; Start 05/24/18 at 18:00 Morphine Sulfate (morphine) 6 mg Q4H PRN PO SEVERE PAIN LEVEL 7-10; Start 05/24/18 at 23:00 Methylprednisolone Sodium Succinate (Solu-Medrol) 40 mg Q6 IV Last administered on 05/25/18 11:56; Admin Dose 40 MG; Start 05/25/18 at 12:00 ZAKIYA WERNER May 25, 2018 15:48
[2018-05-26] VITALS (25 sets, daily range): BP systolic 80–121; BP diastolic 37–63; PULSE 67–79; RESP 19–38
[2018-05-26] MEDS: METHYLPREDNISOLONE 40 MG INJ IV SCH ×4 (00:31→17:01)
[2018-05-26] MEDS: FUROSEMIDE 20 MG INJ IV SCH (06:28)
[2018-05-26] MEDS: LEVOTHYROXINE 125 MCG TAB PO SCH (07:00)
[2018-05-26] MEDS: FAMOTIDINE 20 MG TAB PO SCH (07:59)
[2018-05-26] MEDS: MEROPENEM 1 GM/50ML(PMX) 50 ML IVPB SCH ×2 (08:18→21:00)
[2018-05-26] MEDS: ENOXAPARIN 30 MG/0.3 ML SYG SC SCH (08:24)
--- NOTE | 2018-05-26 11:07 | CONS ---
Consult Date/Type/Reason Admit Date/Time May 23, 2018 at 14:40 Initial Consult Date Type of Consult Pulmonary Date/Time of Note DATE: 05/26/18 TIME: 10:57 Subjective Patient transferred to intensive care yesterday. Remains awake alert continues on high flow O2. Patient agreeable to intubation if needed. Objective Vital Signs Date Temp Pulse Resp B/P (MAP) Pulse Ox O2 O2 Flow FiO2 Time Delivery Rate 05/26/18 73 08:00 05/26/18 97.3 22 103/48 96 High Flow 08:00 (66) 05/26/18 100 01:56 05/25/18 15.0 17:10 Intake and Output 05/25/18 05/25/18 05/26/18 1414:59 22:59 06:59 IntakeIntake Total 480 ml 290 ml 180 ml OutputOutput Total 1 ml 625 ml 305 ml BalanceBalance 479 ml -335 ml -125 ml Exam GENERAL: Frail elderly lady on high flow O2 VITAL SIGNS: per chart NECK: Supple. No JVD or lymphadenopathy. CARDIAC EXAM: S1, S2. No added sounds or murmurs. CHEST: Diminished air entry bilaterally with rales ABDOMEN: Soft, nontender. No guarding or rebound. EXTREMITIES: No cyanosis, clubbing or edema. NEUROLOGIC: Generalized weakness. No focal deficits. Vent Setting Fraction of Inspired Oxygen pe: 100 Results/Medications Result Diagram: 05/26/18 0452 05/26/18 0452 Results 24 hrs Laboratory Tests Test 05/25/18 16:52 05/26/18 04:52 05/26/18 07:00 Blood Gas Specimen Blood arterial Blood arterial Source Arterial Blood Date 05/25/2018 5:42:40 PM 05/26/2018 7:22:32 AM Drawn Arterial Blood pH 7.394 7.388 (Temp corrected) Arterial Blood pCO2 41.9 42.9 (Temp correct) Arterial Blood pO2 67.5 L 52.2 *L (Temp corrected) Arterial Blood HCO3 25.0 25.3 Arterial Blood Base 0.1 0.1 Excess Arterial Blood 91.9 L Oxygen Saturation Randy Test ACCEPTAB N/A Arterial Blood Gas Left Radial Right Brachial Puncture Site Arterial 1.1 Blood Carboxyhemoglob in Arterial Blood 0.3 Methemoglobin Blood Gas A-a O2 603.6 H 617.9 H Differential Oxyhemoglobin Percent 90.6 L Blood Gas Temperature 37.0 37.0 Blood Gas Modality MASK - NRB HFNC FiO2 100.0 100.0 Blood Gas Critical ICU GALEN RN Value Read Back Blood Gas Notified AB TM Whom Blood Gas Notified 05/25/2018 5:56:01 PM 05/26/2018 7:52:02 AM Time White Blood Count 13.3 #H Red Blood Count 3.18 L Hemoglobin 11.3 L Hematocrit 34.6 L Mean Corpuscular 108.8 H Volume Mean Corpuscular 35.5 H Hemoglobin Mean Corpuscular 32.7 Hemoglobin Concent Red Cell Distribution 15.3 H Width Platelet Count 72 L Mean Platelet Volume 11.6 H Immature Granulocytes 0.800 H % Neutrophils % 92.4 H Lymphocytes % 4.5 L Monocytes % 1.9 Eosinophils % 0.1 Basophils % 0.3 Nucleated Red Blood 0.0 Cells % Immature Granulocytes 0.100 H # Neutrophils # 12.3 H Lymphocytes # 0.6 L Monocytes # 0.3 Eosinophils # 0.0 Basophils # 0.0 Nucleated Red Blood 0.0 Cells # Sodium Level 138 Potassium Level 4.0 Chloride Level 104 Carbon Dioxide Level 27 Anion Gap 7 Blood Urea Nitrogen 23 H Creatinine 0.83 Est Glomerular Filtrat Rate mL/min Glucose Level 128 # Calcium Level 8.1 L Medications Current Medications IV Flush (NS 3 ml) 3 ml PER PROTOCOL IV ; Start 05/23/18 at 16:00 Ondansetron HCl (Zofran Inj) 4 mg Q6H PRN IV NAUSEA/VOMITING; Start 05/23/18 at 16:00 Acetaminophen (Tylenol Tab) 650 mg Q6H PRN PO .PAIN 1-3 OR TEMP; Start 05/23/18 at 16:00 Enoxaparin Sodium (Lovenox) 30 mg DAILY SC Last administered on 05/26/18at 08:24; Admin Dose 30 MG; Start 05/24/18 at 09:00 Albuterol (Ventolin Hfa) 2 puff Q4H PRN INH WHEEZING AND SOB; Start 05/23/18 at 21:00 Levothyroxine Sodium (Synthroid) 125 mcg BEFORE BREAKFAST PO Last administered on 05/25/18at 06:27; Admin Dose 125 MCG; Start 05/24/18 at 07:00 Meropenem/Sodium Chloride 50 ml @ 100 mls/hr Q12 IVPB Last administered on 05/26/18 08:18; Admin Dose 100 MLS/HR; Start 05/24/18 at 15:30 Famotidine (Pepcid) 20 mg DAILY PO Last administered on 05/25/18at 08:10; Admin Dose 20 MG; Start 05/25/18 at 09:00 Furosemide (Lasix) 20 mg BID DIURETICS IV Last administered on 05/26/18 06:28; Admin Dose 20 MG; Start 05/24/18 at 18:00 Morphine Sulfate (morphine) 6 mg Q4H PRN PO SEVERE PAIN LEVEL 7-10; Start 05/24/18 at 23:00 Methylprednisolone Sodium Succinate (Solu-Medrol) 40 mg Q6 IV Last administered on 05/26/18 06:28; Admin Dose 40 MG; Start 05/25/18 at 12:00 Assessment/Plan Hospital Course (Demo Recall) IMPRESSION: 1. Acute hypoxemic respiratory failure, probably secondary to pulmonary edema. 2. Possible component of aspiration pneumonia 3. Preserved ejection fraction with mild to moderate aortic stenosis RECOMMENDATIONS: 1. Aspiration precautions 2. Diuretics. 3. Supplemental O2. 4. Antibiotics and steroids 5. DVT and GI prophylaxis. Prognosis guarded consider discussion with family regarding goals of care. Critical care time 40 minutes MARIA GUADALUPE PAUL MD, [facility] May 26, 2018 11:07
--- NOTE | 2018-05-26 12:57 | CONS ---
Assessment/Plan Assessment/Plan Hospital Course (Demo Recall) IMPRESSION: 1. Congestive heart failure exacerbation with an echo from 2016, at that time revealing a preserved EF and had a mild to moderate aortic stenosis. Thus, possibly diastolic, acute on chronic.- Echo again tis time with preserved EF 2. Shortness of breath secondary to #1. 3. Tachycardia on admit. Sinus tachycardia, now improved. 4. Hypothyroidism. 5. Cirrhosis. 6. Leukocytosis. 7. Anemia and thrombocytopenia. 8. Coagulopathy. 9. anxiety Recc: -ICU -Continue o2 support by high flow -Continue steroids/abx's -Continue lasix diuresis Consultation Date/Type/Reason Admit Date/Time May 23, 2018 at 14:40 Initial Consult Date 05/24/18 Type of Consult Cardiology Reason for Consultation CHF Requesting Provider: GURMEET CAMPOS MD Date/Time of Note DATE: 05/26/18 TIME: 12:49 Exam/Review of Systems Vital Signs Vitals Vital Signs Date Temp Pulse Resp B/P (MAP) Pulse Ox O2 O2 Flow FiO2 Time Delivery Rate 05/26/18 100 11:07 05/26/18 73 36 100/42 92 11:00 (61) 05/26/18 97.3 High Flow 08:00 05/26/18 15.0 08:00 Intake and Output 05/25/18 05/25/18 05/26/18 1515:00 23:00 07:00 IntakeIntake Total 480 ml 350 ml 120 ml OutputOutput Total 1 ml 685 ml 245 ml BalanceBalance 479 ml -335 ml -125 ml Exam Exam Review of Systems: CONSTITUTIONAL: No fevers, chills. PULMONARY: sob/hypoxic CARDIOVASCULAR: No chest pain/palpitations GASTROINTESTINAL: No nausea/vomiting. GENITOURINARY: No hematuria/dysuria. MUSCULOSKELETAL: No myagias/arthalgias. PSYCHIATRIC: The patient denies depression. NEUROLOGIC: No weakness Constitutional: alert Psych: no complaints Head: normocephalic ENMT: mucosa pink and moist Neck: supple, jvd (9 cm water) Respiratory: diminished breath sounds Cardiovascular: regular rate and rhythm Gastrointestinal: soft, non-tender Musculoskeletal: muscle tone (normal) Extremities: edema (none) Neurological: other (no focal deficits) Labs Result Diagram: 05/26/1845105/26/18451 Results 24hrs Laboratory Tests Test 05/25/18 16:52 05/26/18 04:52 05/26/18 07:00 Blood Gas Specimen Blood arterial Blood arterial Source Arterial Blood Date 05/25/2018 5:42:00 PM 05/26/2018 7:22:32 AM Drawn Arterial Blood pH 7.394 7.388 (Temp corrected) Arterial Blood pCO2 41.9 42.9 (Temp correct) Arterial Blood pO2 67.5 L 52.2 *L (Temp corrected) Arterial Blood HCO3 25.0 25.3 Arterial Blood Base 0.1 0.1 Excess Arterial Blood 91.9 L Oxygen Saturation Randy Test ACCEPTAB N/A Arterial Blood Gas Left Radial Right Brachial Puncture Site Arterial 1.1 Blood Carboxyhemoglob in Arterial Blood 0.3 Methemoglobin Blood Gas A-a O2 603.6 H 617.9 H Differential Oxyhemoglobin Percent 90.6 L Blood Gas Temperature 37.0 37.0 Blood Gas Modality MASK - NRB HFNC FiO2 100.0 100.0 Blood Gas Critical Pending GALEN RN Value Read Back Blood Gas Notified AB TM Whom Blood Gas Notified 05/25/2018 5:56:00 PM 05/26/2018 7:52:02 AM Time White Blood Count 13.3 #H Red Blood Count 3.18 L Hemoglobin 11.3 L Hematocrit 34.6 L Mean Corpuscular 108.8 H Volume Mean Corpuscular 35.5 H Hemoglobin Mean Corpuscular 32.7 Hemoglobin Concent Red Cell Distribution 15.3 H Width Platelet Count 72 L Mean Platelet Volume 11.6 H Immature Granulocytes 0.800 H % Neutrophils % 92.4 H Lymphocytes % 4.5 L Monocytes % 1.9 Eosinophils % 0.1 Basophils % 0.3 Nucleated Red Blood 0.0 Cells % Immature Granulocytes 0.100 H # Neutrophils # 12.3 H Lymphocytes # 0.6 L Monocytes # 0.3 Eosinophils # 0.0 Basophils # 0.0 Nucleated Red Blood 0.0 Cells # Sodium Level 138 Potassium Level 4.0 Chloride Level 104 Carbon Dioxide Level 27 Anion Gap 7 Blood Urea Nitrogen 23 H Creatinine 0.83 Est Glomerular Filtrat Rate mL/min Glucose Level 128 # Calcium Level 8.1 L Medications Medications Current Medications IV Flush (NS 3 ml) 3 ml PER PROTOCOL IV ; Start 05/23/18 at 16:00 Ondansetron HCl (Zofran Inj) 4 mg Q6H PRN IV NAUSEA/VOMITING; Start 05/23/18 at 16:00 Acetaminophen (Tylenol Tab) 650 mg Q6H PRN PO .PAIN 1-3 OR TEMP; Start 05/23/18 at 16:00 Enoxaparin Sodium (Lovenox) 30 mg DAILY SC Last administered on 05/26/18 08:24; Admin Dose 30 MG; Start 05/24/18 at 09:00 Albuterol (Ventolin Hfa) 2 puff Q4H PRN INH WHEEZING AND SOB; Start 05/23/18 at 21:00 Levothyroxine Sodium (Synthroid) 125 mcg BEFORE BREAKFAST PO Last administered on 05/25/18 06:27; Admin Dose 125 MCG; Start 05/24/18 at 07:00 Meropenem/Sodium Chloride 50 ml @ 100 mls/hr Q12 IVPB Last administered on 05/26/18 08:18; Admin Dose 100 MLS/HR; Start 05/24/18 at 15:30 Famotidine (Pepcid) 20 mg DAILY PO Last administered on 05/25/18 08:10; Admin Dose 20 MG; Start 05/25/18 at 09:00 Furosemide (Lasix) 20 mg BID DIURETICS IV Last administered on 05/26/18 06:28; Admin Dose 20 MG; Start 05/24/18 at 18:00 Morphine Sulfate (morphine) 6 mg Q4H PRN PO SEVERE PAIN LEVEL 7-10; Start 05/24/18 at 23:00 Methylprednisolone Sodium Succinate (Solu-Medrol) 40 mg Q6 IV Last administered on 05/26/18 11:38; Admin Dose 40 MG; Start 05/25/18 at 12:00 JOSE M ZENG May 26, 2018 12:57
--- NOTE | 2018-05-26 13:25 | CONS ---
Assessment/Plan Assessment/Plan Hospital Course (Demo Recall) Patient was transferred to ICU secondary to increased oxygen requirements currently 100% high flow in no distress and looks comfortable. No fevers overnight WBC 13.3 H&H 11.3 and 34.6 platelets 72 neutrophils 92.4 BUN 23 creatinine 0.83 Microbiology: Blood and urine cultures remain negative Allergy: Penicillin Antimicrobials: Meropenem Physical examination: This is an obese well-developed elderly woman who is lying comfortably in bed head atraumatic normocephalic neck is supple chest rise symmetrical breath sounds diminished bases heart: S1-S2. Abdomen soft bowel sounds present. Extremities no cyanosis Assessment: 1. Acute hypoxemic respiratory failure 2. Pulmonary edema 3. Pneumonia 4. Mild to moderate aortic stenosis 5. Cirrhosis 6. Urinary tract infection Plan: Hemodynamically stable, continue present care, steroids, antibiotics, diuresis, follow pulmonary and cardiology recommendations Consultation Date/Type/Reason Admit Date/Time May 23, 2018 at 14:40 Initial Consult Date Type of Consult id Requesting Provider: GURMEET CAMPOS MD Date/Time of Note DATE: 05/26/18 TIME: 13:23 Exam/Review of Systems Exam Vitals Vital Signs Date Temp Pulse Resp B/P (MAP) Pulse Ox O2 O2 Flow FiO2 Time Delivery Rate 05/26/18 78 12:00 05/26/18 97.4 25 109/51 91 High Flow 12:00 (70) 05/26/18 100 11:07 05/26/18 15.0 08:00 Intake and Output 05/25/18 05/25/18 05/26/18 1515:00 23:00 07:00 IntakeIntake Total 480 ml 350 ml 120 ml OutputOutput Total 1 ml 685 ml 245 ml BalanceBalance 479 ml -335 ml -125 ml Results Result Diagram: 05/26/18 0452 05/26/18 0452 Results 24hrs Laboratory Tests Test 05/25/18 16:52 05/26/18 04:52 05/26/18 07:00 Blood Gas Specimen Blood arterial Blood arterial Source Arterial Blood Date 05/25/2018 5:42:00 PM 05/26/2018 7:22:32 AM Drawn Arterial Blood pH 7.394 7.388 (Temp corrected) Arterial Blood pCO2 41.9 42.9 (Temp correct) Arterial Blood pO2 67.5 L 52.2 *L (Temp corrected) Arterial Blood HCO3 25.0 25.3 Arterial Blood Base 0.1 0.1 Excess Arterial Blood 91.9 L Oxygen Saturation Randy Test ACCEPTAB N/A Arterial Blood Gas Left Radial Right Brachial Puncture Site Arterial 1.1 Blood Carboxyhemoglob in Arterial Blood 0.3 Methemoglobin Blood Gas A-a O2 603.6 H 617.9 H Differential Oxyhemoglobin Percent 90.6 L Blood Gas Temperature 37.0 37.0 Blood Gas Modality MASK - NRB HFNC FiO2 100.0 100.0 Blood Gas Critical Pending GALEN RN Value Read Back Blood Gas Notified AB TM Whom Blood Gas Notified 05/25/2018 5:56:00 PM 05/26/2018 7:52:02 AM Time White Blood Count 13.3 #H Red Blood Count 3.18 L Hemoglobin 11.3 L Hematocrit 34.6 L Mean Corpuscular 108.8 H Volume Mean Corpuscular 35.5 H Hemoglobin Mean Corpuscular 32.7 Hemoglobin Concent Red Cell Distribution 15.3 H Width Platelet Count 72 L Mean Platelet Volume 11.6 H Immature Granulocytes 0.800 H % Neutrophils % 92.4 H Lymphocytes % 4.5 L Monocytes % 1.9 Eosinophils % 0.1 Basophils % 0.3 Nucleated Red Blood 0.0 Cells % Immature Granulocytes 0.100 H # Neutrophils # 12.3 H Lymphocytes # 0.6 L Monocytes # 0.3 Eosinophils # 0.0 Basophils # 0.0 Nucleated Red Blood 0.0 Cells # Sodium Level 138 Potassium Level 4.0 Chloride Level 104 Carbon Dioxide Level 27 Anion Gap 7 Blood Urea Nitrogen 23 H Creatinine 0.83 Est Glomerular Filtrat Rate mL/min Glucose Level 128 # Calcium Level 8.1 L Medications Medication Current Medications IV Flush (NS 3 ml) 3 ml PER PROTOCOL IV ; Start 05/23/18 at 16:00 Ondansetron HCl (Zofran Inj) 4 mg Q6H PRN IV NAUSEA/VOMITING; Start 05/23/18 at 16:00 Acetaminophen (Tylenol Tab) 650 mg Q6H PRN PO .PAIN 1-3 OR TEMP; Start 05/23/18 at 16:00 Enoxaparin Sodium (Lovenox) 30 mg DAILY SC Last administered on 05/26/18at 08:24; Admin Dose 30 MG; Start 05/24/18 at 09:00 Albuterol (Ventolin Hfa) 2 puff Q4H PRN INH WHEEZING AND SOB; Start 05/23/18 at 21:00 Levothyroxine Sodium (Synthroid) 125 mcg BEFORE BREAKFAST PO Last administered on 05/25/18at 06:27; Admin Dose 125 MCG; Start 05/24/18 at 07:00 Meropenem/Sodium Chloride 50 ml @ 100 mls/hr Q12 IVPB Last administered on 05/26/18at 08:18; Admin Dose 100 MLS/HR; Start 05/24/18 at 15:30 Famotidine (Pepcid) 20 mg DAILY PO Last administered on 05/25/18at 08:10; Admin Dose 20 MG; Start 05/25/18 at 09:00 Morphine Sulfate (morphine) 6 mg Q4H PRN PO SEVERE PAIN LEVEL 7-10; Start 05/24/18 at 23:00 Methylprednisolone Sodium Succinate (Solu-Medrol) 40 mg Q6 IV Last administered on 05/26/18at 11:38; Admin Dose 40 MG; Start 05/25/18 at 12:00 Furosemide (Lasix) 40 mg BID DIURETICS IV ; Start 05/26/18 at 18:00 MORGAN CORDOBA NP May 26, 2018 13:25
--- NOTE | 2018-05-26 14:08 | PN ---
Date/Time of Note Date/Time of Note DATE: 05/26/18 TIME: 14:03 Assessment/Plan VTE Prophylaxis Risk score (from Ns)>0 risk: 8 SCD applied (from Ns): Yes Pharmacological prophylaxis: LMWH Lines/Catheters IV Catheter Type (from [facility]): Peripheral IV Urinary Cath still in place: Yes Reason Cath still needed: urinary retention Assessment/Plan Hospital Course Patient is on Vapotherm, desaturates easily and gets anxious with her trying to eat move, continue ICU monitoring. Assessment/Plan -Septic shock. Continue antibiotics per ID. Dr. Akins is following in infection disease consultation. -Community-acquired pneumonia -Acute hypoxemic respiratory failure. Dr. Lepe is following in pulmonology consultation. -CHF exacerbation. Continue Lasix monitor electrolytes. Dr. Alford is following in cardiology consultation. -Hypothyroidism, continue levothyroxine. -Liver cirrhosis Further recommendations based on clinical course. Plan of care discussed with Dr. Santiago. Result Diagram: 05/26/18 0452 05/26/18 0452 Results 24hrs Laboratory Tests Test 05/25/18 16:52 05/26/18 04:52 05/26/18 07:00 Blood Gas Specimen Blood arterial Blood arterial Source Arterial Blood Date 05/25/2018 5:42:00 PM 05/26/2018 7:22:32 AM Drawn Arterial Blood pH 7.394 7.388 (Temp corrected) Arterial Blood pCO2 41.9 42.9 (Temp correct) Arterial Blood pO2 67.5 L 52.2 *L (Temp corrected) Arterial Blood HCO3 25.0 25.3 Arterial Blood Base 0.1 0.1 Excess Arterial Blood 91.9 L Oxygen Saturation Randy Test ACCEPTAB N/A Arterial Blood Gas Left Radial Right Brachial Puncture Site Arterial 1.1 Blood Carboxyhemoglob in Arterial Blood 0.3 Methemoglobin Blood Gas A-a O2 603.6 H 617.9 H Differential Oxyhemoglobin Percent 90.6 L Blood Gas Temperature 37.0 37.0 Blood Gas Modality MASK - NRB HFNC FiO2 100.0 100.0 Blood Gas Critical Pending GALEN CISNEROS Value Read Back Blood Gas Notified AB TM Whom Blood Gas Notified 05/25/2018 5:56:00 PM 05/26/2018 7:52:02 AM Time White Blood Count 13.3 #H Red Blood Count 3.18 L Hemoglobin 11.3 L Hematocrit 34.6 L Mean Corpuscular 108.8 H Volume Mean Corpuscular 35.5 H Hemoglobin Mean Corpuscular 32.7 Hemoglobin Concent Red Cell Distribution 15.3 H Width Platelet Count 72 L Mean Platelet Volume 11.6 H Immature Granulocytes 0.800 H % Neutrophils % 92.4 H Lymphocytes % 4.5 L Monocytes % 1.9 Eosinophils % 0.1 Basophils % 0.3 Nucleated Red Blood 0.0 Cells % Immature Granulocytes 0.100 H # Neutrophils # 12.3 H Lymphocytes # 0.6 L Monocytes # 0.3 Eosinophils # 0.0 Basophils # 0.0 Nucleated Red Blood 0.0 Cells # Sodium Level 138 Potassium Level 4.0 Chloride Level 104 Carbon Dioxide Level 27 Anion Gap 7 Blood Urea Nitrogen 23 H Creatinine 0.83 Est Glomerular Filtrat Rate mL/min Glucose Level 128 # Calcium Level 8.1 L Exam/Review of Systems Exam Vitals Vital Signs Date Temp Pulse Resp B/P (MAP) Pulse Ox O2 O2 Flow FiO2 Time Delivery Rate 05/26/18 78 12:00 05/26/18 97.4 25 109/51 91 High Flow 12:00 (70) 05/26/18 100 11:07 05/26/18 15.0 08:00 Intake and Output 05/25/18 05/25/18 05/26/18 1515:00 23:00 07:00 IntakeIntake Total 480 ml 350 ml 120 ml OutputOutput Total 1 ml 685 ml 245 ml BalanceBalance 479 ml -335 ml -125 ml Exam Constitutional: alert Neck: supple Respiratory: diminished breath sounds Cardiovascular: regular rate and rhythm Gastrointestinal: soft, non-tender Musculoskeletal: nl extremities to inspection Extremities: normal pulses Skin: nl turgor Results Results 24hrs Laboratory Tests Test 05/25/18 16:52 05/26/18 04:52 05/26/18 07:00 Blood Gas Specimen Blood arterial Blood arterial Source Arterial Blood Date 05/25/2018 5:42:00 PM 05/26/2018 7:22:32 AM Drawn Arterial Blood pH 7.394 7.388 (Temp corrected) Arterial Blood pCO2 41.9 42.9 (Temp correct) Arterial Blood pO2 67.5 L 52.2 *L (Temp corrected) Arterial Blood HCO3 25.0 25.3 Arterial Blood Base 0.1 0.1 Excess Arterial Blood 91.9 L Oxygen Saturation Randy Test ACCEPTAB N/A Arterial Blood Gas Left Radial Right Brachial Puncture Site Arterial 1.1 Blood Carboxyhemoglob in Arterial Blood 0.3 Methemoglobin Blood Gas A-a O2 603.6 H 617.9 H Differential Oxyhemoglobin Percent 90.6 L Blood Gas Temperature 37.0 37.0 Blood Gas Modality MASK - NRB HFNC FiO2 100.0 100.0 Blood Gas Critical Pending GALEN RN Value Read Back Blood Gas Notified AB TM Whom Blood Gas Notified 05/25/2018 5:56:00 PM 05/26/2018 7:52:02 AM Time White Blood Count 13.3 #H Red Blood Count 3.18 L Hemoglobin 11.3 L Hematocrit 34.6 L Mean Corpuscular 108.8 H Volume Mean Corpuscular 35.5 H Hemoglobin Mean Corpuscular 32.7 Hemoglobin Concent Red Cell Distribution 15.3 H Width Platelet Count 72 L Mean Platelet Volume 11.6 H Immature Granulocytes 0.800 H % Neutrophils % 92.4 H Lymphocytes % 4.5 L Monocytes % 1.9 Eosinophils % 0.1 Basophils % 0.3 Nucleated Red Blood 0.0 Cells % Immature Granulocytes 0.100 H # Neutrophils # 12.3 H Lymphocytes # 0.6 L Monocytes # 0.3 Eosinophils # 0.0 Basophils # 0.0 Nucleated Red Blood 0.0 Cells # Sodium Level 138 Potassium Level 4.0 Chloride Level 104 Carbon Dioxide Level 27 Anion Gap 7 Blood Urea Nitrogen 23 H Creatinine 0.83 Est Glomerular Filtrat Rate mL/min Glucose Level 128 # Calcium Level 8.1 L Medications Medication Current Medications IV Flush (NS 3 ml) 3 ml PER PROTOCOL IV ; Start 05/23/18 at 16:00 Ondansetron HCl (Zofran Inj) 4 mg Q6H PRN IV NAUSEA/VOMITING; Start 05/23/18 at 16:00 Acetaminophen (Tylenol Tab) 650 mg Q6H PRN PO .PAIN 1-3 OR TEMP; Start 05/23/18 at 16:00 Enoxaparin Sodium (Lovenox) 30 mg DAILY SC Last administered on 05/26/18at 08:24; Admin Dose 30 MG; Start 05/24/18 at 09:00 Albuterol (Ventolin Hfa) 2 puff Q4H PRN INH WHEEZING AND SOB; Start 05/23/18 at 21:00 Levothyroxine Sodium (Synthroid) 125 mcg BEFORE BREAKFAST PO Last administered on 05/25/18at 06:27; Admin Dose 125 MCG; Start 05/24/18 at 07:00 Meropenem/Sodium Chloride 50 ml @ 100 mls/hr Q12 IVPB Last administered on 05/26/18at 08:18; Admin Dose 100 MLS/HR; Start 05/24/18 at 15:30 Famotidine (Pepcid) 20 mg DAILY PO Last administered on 05/25/18at 08:10; Admin Dose 20 MG; Start 05/25/18 at 09:00 Morphine Sulfate (morphine) 6 mg Q4H PRN PO SEVERE PAIN LEVEL 7-10; Start 05/24/18 at 23:00 Methylprednisolone Sodium Succinate (Solu-Medrol) 40 mg Q6 IV Last administered on 05/26/18at 11:38; Admin Dose 40 MG; Start 05/25/18 at 12:00 Furosemide (Lasix) 40 mg BID DIURETICS IV ; Start 05/26/18 at 18:00 ZAKIYA WERNER May 26, 2018 14:08
[2018-05-26] MEDS: FUROSEMIDE 40 MG INJ IV SCH (17:04)
[2018-05-27] VITALS (38 sets, daily range): BP systolic 96–129; BP diastolic 34–61; PULSE 57–78; RESP 19–38
[2018-05-27] MEDS: LEVOTHYROXINE 125 MCG TAB PO SCH (06:41)
[2018-05-27] MEDS: METHYLPREDNISOLONE 40 MG INJ IV SCH ×4 (06:41→17:22)
[2018-05-27] MEDS: FUROSEMIDE 40 MG INJ IV SCH ×2 (06:41→17:22)
[2018-05-27] MEDS: MEROPENEM 1 GM/50ML(PMX) 50 ML IVPB SCH ×2 (08:38→20:30)
[2018-05-27] MEDS: ENOXAPARIN 30 MG/0.3 ML SYG SC SCH (08:39)
--- NOTE | 2018-05-27 10:09 | CONS ---
Consult Date/Type/Reason Admit Date/Time May 23, 2018 at 14:40 Initial Consult Date Type of Consult Pulmonary Requesting Provider: GURMEET CAMPOS MD Date/Time of Note DATE: 05/27/18 TIME: 10:08 Subjective Remains awake alert continues high flow 100% 35 L/min. Objective Vital Signs Date Temp Pulse Resp B/P (MAP) Pulse Ox O2 O2 Flow FiO2 Time Delivery Rate 05/27/18 95 100 09:16 05/27/18 Vapotherm 15.0 08:00 05/27/18 66 27 126/49 07:30 (74) 05/27/18 98.0 07:00 Intake and Output 05/26/18 05/26/18 05/27/18 1515:00 23:00 07:00 IntakeIntake Total 50 ml OutputOutput Total 560 ml 170 ml 1000 ml BalanceBalance -510 ml -170 ml -1000 ml Exam GENERAL: Frail elderly lady on high flow O2 VITAL SIGNS: per chart NECK: Supple. No JVD or lymphadenopathy. CARDIAC EXAM: S1, S2. No added sounds or murmurs. CHEST: Diminished air entry bilaterally with rales ABDOMEN: Soft, nontender. No guarding or rebound. EXTREMITIES: No cyanosis, clubbing or edema. NEUROLOGIC: Generalized weakness. No focal deficits. Vent Setting Fraction of Inspired Oxygen pe: 100 Results/Medications Result Diagram: 05/27/18 0456 05/27/18 0457 Results 24 hrs Laboratory Tests Test 05/27/18 04:56 05/27/18 04:57 05/27/18 07:00 White Blood Count 17.7 #H Red Blood Count 3.56 L Hemoglobin 12.5 Hematocrit 38.2 Mean Corpuscular Volume 107.3 H Mean Corpuscular Hemoglobin 35.1 H Mean Corpuscular 32.7 Hemoglobin Concent Red Cell Distribution Width 15.4 H Platelet Count 77 L Mean Platelet Volume 11.7 H Immature Granulocytes % 0.700 H Neutrophils % 92.1 H Lymphocytes % 4.3 L Monocytes % 2.7 Eosinophils % 0.0 Basophils % 0.2 Nucleated Red Blood Cells % 0.0 Immature Granulocytes # 0.120 H Neutrophils # 16.3 H Lymphocytes # 0.8 Monocytes # 0.5 Eosinophils # 0.0 Basophils # 0.0 Nucleated Red Blood Cells # 0.0 Sodium Level 141 Potassium Level 3.7 Chloride Level 101 Carbon Dioxide Level 32 H Anion Gap 8 Blood Urea Nitrogen 30 H Creatinine 0.80 Est Glomerular Filtrat Rate mL/min Glucose Level 122 Calcium Level 7.9 L Blood Gas Specimen Source Blood arterial Arterial Blood Date Drawn 05/27/2018 7:55:09 AM Arterial Blood pH 7.431 (Temp corrected) Arterial Blood pCO2 48.4 H (Temp correct) Arterial Blood pO2 48.6 *L (Temp corrected) Arterial Blood HCO3 31.5 H Arterial Blood Base Excess 6.1 H Arterial Blood 82.3 L Oxygen Saturation Randy Test ACCEPTAB Arterial Blood Gas Right Radial Puncture Site Arterial 0.7 Blood Carboxyhemoglobin Arterial Blood Methemoglobin 0.3 Blood Gas A-a O2 616.0 H Differential Oxyhemoglobin Percent 81.5 L Blood Gas Temperature 37.0 Blood Gas Modality HFNC FiO2 100.0 Blood Gas Critical Value Pamella MILLAN RN Read Back Blood Gas Notified Whom DT Blood Gas Notified Time 05/27/2018 8:18:18 AM Medications Current Medications IV Flush (NS 3 ml) 3 ml PER PROTOCOL IV ; Start 05/23/18 at 16:00 Ondansetron HCl (Zofran Inj) 4 mg Q6H PRN IV NAUSEA/VOMITING; Start 05/23/18 at 16:00 Acetaminophen (Tylenol Tab) 650 mg Q6H PRN PO .PAIN 1-3 OR TEMP; Start 05/23/18 at 16:00 Enoxaparin Sodium (Lovenox) 30 mg DAILY SC Last administered on 05/27/18at 08:39; Admin Dose 30 MG; Start 05/24/18 at 09:00 Albuterol (Ventolin Hfa) 2 puff Q4H PRN INH WHEEZING AND SOB; Start 05/23/18 at 21:00 Levothyroxine Sodium (Synthroid) 125 mcg BEFORE BREAKFAST PO Last administered on 05/27/18at 06:41; Admin Dose 125 MCG; Start 05/24/18 at 07:00 Meropenem/Sodium Chloride 50 ml @ 100 mls/hr Q12 IVPB Last administered on 05/27/18at 08:38; Admin Dose 100 MLS/HR; Start 05/24/18 at 15:30 Famotidine (Pepcid) 20 mg DAILY PO Last administered on 05/25/18at 08:10; Admin Dose 20 MG; Start 05/25/18 at 09:00 Morphine Sulfate (morphine) 6 mg Q4H PRN PO SEVERE PAIN LEVEL 7-10; Start 05/24/18 at 23:00 Methylprednisolone Sodium Succinate (Solu-Medrol) 40 mg Q6 IV Last administered on 05/27/18at 06:41; Admin Dose 40 MG; Start 05/25/18 at 12:00 Furosemide (Lasix) 40 mg BID DIURETICS IV Last administered on 05/27/18at 06:41; Admin Dose 40 MG; Start 05/26/18 at 18:00 Assessment/Plan Hospital Course (Demo Recall) IMPRESSION: 1. Acute hypoxemic respiratory failure, probably secondary to pulmonary edema. 2. Possible component of aspiration pneumonia 3. Preserved ejection fraction with mild to moderate aortic stenosis RECOMMENDATIONS: 1. Aspiration precautions 2. Diuretics. 3. Supplemental O2. 4. Antibiotics and steroids 5. DVT and GI prophylaxis. Prognosis guarded consider discussion with family regarding goals of care. Critical care time 40 minutes may require Intubation with tracheostomy if not able to decrease FiO2. MARIA GUADALUPE PAUL MD, [facility] May 27, 2018 10:09
--- NOTE | 2018-05-27 10:26 | CONS ---
Assessment/Plan Assessment/Plan Hospital Course (Demo Recall) IMPRESSION: 1. Congestive heart failure exacerbation with an echo from 2016, at that time revealing a preserved EF and had a mild to moderate aortic stenosis. Thus, possibly diastolic, acute on chronic.- Echo again tis time with preserved EF. ? CHF so severe given NL EF ? ARDS/pulm fibrosis 2. Shortness of breath secondary to #1. 3. Tachycardia on admit. Sinus tachycardia, now improved. 4. Hypothyroidism. 5. Cirrhosis. 6. Leukocytosis. 7. Anemia and thrombocytopenia. 8. Coagulopathy. 9. anxiety Recc: -ICU -Continue o2 support by high flow -Continue steroids/abx's -Continue lasix diuresis Consultation Date/Type/Reason Admit Date/Time May 23, 2018 at 14:40 Initial Consult Date 05/24/18 Type of Consult Cardiology Requesting Provider: GURMEET CAMPOS MD Date/Time of Note DATE: 05/27/18 TIME: 10:24 Exam/Review of Systems Vital Signs Vitals Vital Signs Date Temp Pulse Resp B/P (MAP) Pulse Ox O2 O2 Flow FiO2 Time Delivery Rate 05/27/18 95 100 09:16 05/27/18 68 08:00 05/27/18 Vapotherm 15.0 08:00 05/27/18 27 126/49 07:30 (74) 05/27/18 98.0 07:00 Intake and Output 05/26/18 05/26/18 05/27/18 1515:00 23:00 07:00 IntakeIntake Total 50 ml OutputOutput Total 560 ml 170 ml 1000 ml BalanceBalance -510 ml -170 ml -1000 ml Exam Exam Review of Systems: CONSTITUTIONAL: No fevers, chills. PULMONARY: No sob CARDIOVASCULAR: No chest pain/palpitations GASTROINTESTINAL: No nausea/vomiting. GENITOURINARY: No hematuria/dysuria. MUSCULOSKELETAL: No myagias/arthalgias. PSYCHIATRIC: The patient denies depression. NEUROLOGIC: No weakness Constitutional: alert Psych: no complaints Head: normocephalic ENMT: mucosa pink and moist Neck: supple, jvd Respiratory: diminished breath sounds Cardiovascular: regular rate and rhythm Gastrointestinal: soft, non-tender Musculoskeletal: muscle tone (normal) Extremities: edema (none) Neurological: other (No focal deficits) Labs Result Diagram: 05/27/18 0456 05/27/18 0457 Results 24hrs Laboratory Tests Test 05/27/18 04:56 05/27/18 04:57 05/27/18 07:00 White Blood Count 17.7 #H Red Blood Count 3.56 L Hemoglobin 12.5 Hematocrit 38.2 Mean Corpuscular Volume 107.3 H Mean Corpuscular Hemoglobin 35.1 H Mean Corpuscular 32.7 Hemoglobin Concent Red Cell Distribution Width 15.4 H Platelet Count 77 L Mean Platelet Volume 11.7 H Immature Granulocytes % 0.700 H Neutrophils % 92.1 H Lymphocytes % 4.3 L Monocytes % 2.7 Eosinophils % 0.0 Basophils % 0.2 Nucleated Red Blood Cells % 0.0 Immature Granulocytes # 0.120 H Neutrophils # 16.3 H Lymphocytes # 0.8 Monocytes # 0.5 Eosinophils # 0.0 Basophils # 0.0 Nucleated Red Blood Cells # 0.0 Sodium Level 141 Potassium Level 3.7 Chloride Level 101 Carbon Dioxide Level 32 H Anion Gap 8 Blood Urea Nitrogen 30 H Creatinine 0.80 Est Glomerular Filtrat Rate mL/min Glucose Level 122 Calcium Level 7.9 L Blood Gas Specimen Source Blood arterial Arterial Blood Date Drawn 05/27/2018 7:55:09 AM Arterial Blood pH 7.431 (Temp corrected) Arterial Blood pCO2 48.4 H (Temp correct) Arterial Blood pO2 48.6 *L (Temp corrected) Arterial Blood HCO3 31.5 H Arterial Blood Base Excess 6.1 H Arterial Blood 82.3 L Oxygen Saturation Randy Test ACCEPTAB Arterial Blood Gas Right Radial Puncture Site Arterial 0.7 Blood Carboxyhemoglobin Arterial Blood Methemoglobin 0.3 Blood Gas A-a O2 616.0 H Differential Oxyhemoglobin Percent 81.5 L Blood Gas Temperature 37.0 Blood Gas Modality HFNC FiO2 100.0 Blood Gas Critical Value Pamella MILLAN RN Read Back Blood Gas Notified Whom DT Blood Gas Notified Time 05/27/2018 8:18:18 AM Medications Medications Current Medications IV Flush (NS 3 ml) 3 ml PER PROTOCOL IV ; Start 05/23/18 at 16:00 Ondansetron HCl (Zofran Inj) 4 mg Q6H PRN IV NAUSEA/VOMITING; Start 05/23/18 at 16:00 Acetaminophen (Tylenol Tab) 650 mg Q6H PRN PO .PAIN 1-3 OR TEMP; Start 05/23/18 at 16:00 Enoxaparin Sodium (Lovenox) 30 mg DAILY SC Last administered on 05/27/18 08:39; Admin Dose 30 MG; Start 05/24/18 at 09:00 Albuterol (Ventolin Hfa) 2 puff Q4H PRN INH WHEEZING AND SOB; Start 05/23/18 at 21:00 Levothyroxine Sodium (Synthroid) 125 mcg BEFORE BREAKFAST PO Last administered on 05/27/18 06:41; Admin Dose 125 MCG; Start 05/24/18 at 07:00 Meropenem/Sodium Chloride 50 ml @ 100 mls/hr Q12 IVPB Last administered on 05/27/18 08:38; Admin Dose 100 MLS/HR; Start 05/24/18 at 15:30 Famotidine (Pepcid) 20 mg DAILY PO Last administered on 05/25/18 08:10; Admin Dose 20 MG; Start 05/25/18 at 09:00 Morphine Sulfate (morphine) 6 mg Q4H PRN PO SEVERE PAIN LEVEL 7-10; Start 05/24/18 at 23:00 Methylprednisolone Sodium Succinate (Solu-Medrol) 40 mg Q6 IV Last administered on 05/27/18 06:41; Admin Dose 40 MG; Start 05/25/18 at 12:00 Furosemide (Lasix) 40 mg BID DIURETICS IV Last administered on 05/27/18 06:41; Admin Dose 40 MG; Start 05/26/18 at 18:00 JOSE M ZENG May 27, 2018 10:26
--- NOTE | 2018-05-27 13:53 | CONS ---
Assessment/Plan Assessment/Plan Hospital Course (Demo Recall) No acute events patient is awake still on high flow oxygen no fevers overnight family at bedside WBC today 17.7, patient was started on Solu-Medrol 2 days ago. Platelets 77 neutrophils 92.1 BUN 30 creatinine 0.80 The chest x-ray this morning revealed diffuse bilateral interstitial and alveol ar opacities that may reflect a combination of edema pneumonia. Findings are mildly increased when compared to the prior examination. Small bilateral pleural effusions. Microbiology: Blood and urine cultures remain negative Allergy: Penicillin Antimicrobials: Meropenem Physical examination: This is an obese well-developed elderly woman who is lying comfortably in bed. Head atraumatic normocephalic. Neck is supple. Chest rise symmetrical, breath sounds diminished bases. Heart: S1-S2. Abdomen soft bowel sounds present. Extremities no cyanosis Assessment: 1. Acute hypoxemic respiratory failure 2. Pulmonary edema 3. Pneumonia 4. Mild to moderate aortic stenosis 5. Cirrhosis 6. Urinary tract infection Plan: Remains unchanged, continue present care, steroids, antibiotics, diuresis, follow pulmonary and cardiology recommendations Consultation Date/Type/Reason Admit Date/Time May 23, 2018 at 14:40 Initial Consult Date Type of Consult id Requesting Provider: GURMEET CAMPOS MD Date/Time of Note DATE: 05/27/18 TIME: 13:52 Exam/Review of Systems Exam Vitals Vital Signs Date Temp Pulse Resp B/P (MAP) Pulse Ox O2 O2 Flow FiO2 Time Delivery Rate 05/27/18 100 13:08 05/27/18 63 12:00 05/27/18 98.0 28 112/50 97 12:00 (70) 05/27/18 Vapotherm 15.0 08:00 Intake and Output 05/26/18 05/26/18 05/27/18 1515:00 23:00 07:00 IntakeIntake Total 50 ml OutputOutput Total 560 ml 170 ml 1000 ml BalanceBalance -510 ml -170 ml -1000 ml Results Result Diagram: 05/27/18 0456 05/27/18 0457 Results 24hrs Laboratory Tests Test 05/27/18 04:56 05/27/18 04:57 05/27/18 07:00 White Blood Count 17.7 #H Red Blood Count 3.56 L Hemoglobin 12.5 Hematocrit 38.2 Mean Corpuscular Volume 107.3 H Mean Corpuscular Hemoglobin 35.1 H Mean Corpuscular 32.7 Hemoglobin Concent Red Cell Distribution Width 15.4 H Platelet Count 77 L Mean Platelet Volume 11.7 H Immature Granulocytes % 0.700 H Neutrophils % 92.1 H Lymphocytes % 4.3 L Monocytes % 2.7 Eosinophils % 0.0 Basophils % 0.2 Nucleated Red Blood Cells % 0.0 Immature Granulocytes # 0.120 H Neutrophils # 16.3 H Lymphocytes # 0.8 Monocytes # 0.5 Eosinophils # 0.0 Basophils # 0.0 Nucleated Red Blood Cells # 0.0 Sodium Level 141 Potassium Level 3.7 Chloride Level 101 Carbon Dioxide Level 32 H Anion Gap 8 Blood Urea Nitrogen 30 H Creatinine 0.80 Est Glomerular Filtrat Rate mL/min Glucose Level 122 Calcium Level 7.9 L Blood Gas Specimen Source Blood arterial Arterial Blood Date Drawn 05/27/2018 7:55:09 AM Arterial Blood pH 7.431 (Temp corrected) Arterial Blood pCO2 48.4 H (Temp correct) Arterial Blood pO2 48.6 *L (Temp corrected) Arterial Blood HCO3 31.5 H Arterial Blood Base Excess 6.1 H Arterial Blood 82.3 L Oxygen Saturation Randy Test ACCEPTAB Arterial Blood Gas Right Radial Puncture Site Arterial 0.7 Blood Carboxyhemoglobin Arterial Blood Methemoglobin 0.3 Blood Gas A-a O2 616.0 H Differential Oxyhemoglobin Percent 81.5 L Blood Gas Temperature 37.0 Blood Gas Modality HFNC FiO2 100.0 Blood Gas Critical Value Pamella MILLAN RN Read Back Blood Gas Notified Whom DT Blood Gas Notified Time 05/27/2018 8:18:18 AM Medications Medication Current Medications IV Flush (NS 3 ml) 3 ml PER PROTOCOL IV ; Start 05/23/18 at 16:00 Ondansetron HCl (Zofran Inj) 4 mg Q6H PRN IV NAUSEA/VOMITING; Start 05/23/18 at 16:00 Acetaminophen (Tylenol Tab) 650 mg Q6H PRN PO .PAIN 1-3 OR TEMP; Start 05/23/18 at 16:00 Enoxaparin Sodium (Lovenox) 30 mg DAILY SC Last administered on 05/27/18at 08:39; Admin Dose 30 MG; Start 05/24/18 at 09:00 Albuterol (Ventolin Hfa) 2 puff Q4H PRN INH WHEEZING AND SOB; Start 05/23/18 at 21:00 Levothyroxine Sodium (Synthroid) 125 mcg BEFORE BREAKFAST PO Last administered on 05/27/18 06:41; Admin Dose 125 MCG; Start 05/24/18 at 07:00 Meropenem/Sodium Chloride 50 ml @ 100 mls/hr Q12 IVPB Last administered on 05/27/18 08:38; Admin Dose 100 MLS/HR; Start 05/24/18 at 15:30 Famotidine (Pepcid) 20 mg DAILY PO Last administered on 05/25/18 08:10; Admin Dose 20 MG; Start 05/25/18 at 09:00 Morphine Sulfate (morphine) 6 mg Q4H PRN PO SEVERE PAIN LEVEL 7-10; Start 05/24/18 at 23:00 Methylprednisolone Sodium Succinate (Solu-Medrol) 40 mg Q6 IV Last administered on 05/27/18 12:16; Admin Dose 40 MG; Start 05/25/18 at 12:00 Furosemide (Lasix) 40 mg BID DIURETICS IV Last administered on 05/27/18 06:41; Admin Dose 40 MG; Start 05/26/18 at 18:00 MORGAN CORDOBA NP May 27, 2018 13:53
--- NOTE | 2018-05-27 16:24 | PN ---
Date/Time of Note Date/Time of Note DATE: 05/27/18 TIME: 16:19 Assessment/Plan VTE Prophylaxis Risk score (from Ns)>0 risk: 9 SCD applied (from Ns): Yes Pharmacological prophylaxis: LMWH Lines/Catheters IV C[facility]ter Type (from [facility]): Peripheral IV Urinary Cath still in place: Yes Reason Cath still needed: urinary retention Assessment/Plan Hospital Course Patient is currently on Vapotherm, desaturates easily however remains hemodynamically stable, continue ICU care. Assessment/Plan -Septic shock. Continue antibiotics per ID. Dr. Akins is following in infection disease consultation. -Community-acquired pneumonia -Acute hypoxemic respiratory failure. Dr. Lepe is following in pulmonology consultation. -CHF exacerbation. Continue Lasix monitor electrolytes. Dr. Alford is following in cardiology consultation. -Hypothyroidism, continue levothyroxine. -Liver cirrhosis Further recommendations based on clinical course. Plan of care discussed with Dr. Santiago. Result Diagram: 05/27/18 0456 05/27/18 0457 Results 24hrs Laboratory Tests Test 05/27/18 04:56 05/27/18 04:57 05/27/18 07:00 White Blood Count 17.7 #H Red Blood Count 3.56 L Hemoglobin 12.5 Hematocrit 38.2 Mean Corpuscular Volume 107.3 H Mean Corpuscular Hemoglobin 35.1 H Mean Corpuscular 32.7 Hemoglobin Concent Red Cell Distribution Width 15.4 H Platelet Count 77 L Mean Platelet Volume 11.7 H Immature Granulocytes % 0.700 H Neutrophils % 92.1 H Lymphocytes % 4.3 L Monocytes % 2.7 Eosinophils % 0.0 Basophils % 0.2 Nucleated Red Blood Cells % 0.0 Immature Granulocytes # 0.120 H Neutrophils # 16.3 H Lymphocytes # 0.8 Monocytes # 0.5 Eosinophils # 0.0 Basophils # 0.0 Nucleated Red Blood Cells # 0.0 Sodium Level 141 Potassium Level 3.7 Chloride Level 101 Carbon Dioxide Level 32 H Anion Gap 8 Blood Urea Nitrogen 30 H Creatinine 0.80 Est Glomerular Filtrat Rate mL/min Glucose Level 122 Calcium Level 7.9 L Blood Gas Specimen Source Blood arterial Arterial Blood Date Drawn 05/27/2018 7:55:09 AM Arterial Blood pH 7.431 (Temp corrected) Arterial Blood pCO2 48.4 H (Temp correct) Arterial Blood pO2 48.6 *L (Temp corrected) Arterial Blood HCO3 31.5 H Arterial Blood Base Excess 6.1 H Arterial Blood 82.3 L Oxygen Saturation Randy Test ACCEPTAB Arterial Blood Gas Right Radial Puncture Site Arterial 0.7 Blood Carboxyhemoglobin Arterial Blood Methemoglobin 0.3 Blood Gas A-a O2 616.0 H Differential Oxyhemoglobin Percent 81.5 L Blood Gas Temperature 37.0 Blood Gas Modality HFNC FiO2 100.0 Blood Gas Critical Value Pamella MILLNA RN Read Back Blood Gas Notified Whom DT Blood Gas Notified Time 05/27/2018 8:18:18 AM Exam/Review of Systems Exam Vitals Vital Signs Date Temp Pulse Resp B/P (MAP) Pulse Ox O2 O2 Flow FiO2 Time Delivery Rate 05/27/18 61 20 93 16:15 05/27/18 97.9 128/46 16:00 (73) 05/27/18 Vapotherm 15:55 05/27/18 100 14:52 05/27/18 15.0 08:00 Intake and Output 05/26/18 05/26/18 05/27/18 1515:00 23:00 07:00 IntakeIntake Total 50 ml OutputOutput Total 560 ml 170 ml 1000 ml BalanceBalance -510 ml -170 ml -1000 ml Exam Constitutional: alert Neck: supple Respiratory: diminished breath sounds Cardiovascular: regular rate and rhythm Gastrointestinal: soft, non-tender Musculoskeletal: nl extremities to inspection Extremities: normal pulses Skin: nl turgor Results Results 24hrs Laboratory Tests Test 05/27/18 04:56 05/27/18 04:57 05/27/18 07:00 White Blood Count 17.7 #H Red Blood Count 3.56 L Hemoglobin 12.5 Hematocrit 38.2 Mean Corpuscular Volume 107.3 H Mean Corpuscular Hemoglobin 35.1 H Mean Corpuscular 32.7 Hemoglobin Concent Red Cell Distribution Width 15.4 H Platelet Count 77 L Mean Platelet Volume 11.7 H Immature Granulocytes % 0.700 H Neutrophils % 92.1 H Lymphocytes % 4.3 L Monocytes % 2.7 Eosinophils % 0.0 Basophils % 0.2 Nucleated Red Blood Cells % 0.0 Immature Granulocytes # 0.120 H Neutrophils # 16.3 H Lymphocytes # 0.8 Monocytes # 0.5 Eosinophils # 0.0 Basophils # 0.0 Nucleated Red Blood Cells # 0.0 Sodium Level 141 Potassium Level 3.7 Chloride Level 101 Carbon Dioxide Level 32 H Anion Gap 8 Blood Urea Nitrogen 30 H Creatinine 0.80 Est Glomerular Filtrat Rate mL/min Glucose Level 122 Calcium Level 7.9 L Blood Gas Specimen Source Blood arterial Arterial Blood Date Drawn 05/27/2018 7:55:09 AM Arterial Blood pH 7.431 (Temp corrected) Arterial Blood pCO2 48.4 H (Temp correct) Arterial Blood pO2 48.6 *L (Temp corrected) Arterial Blood HCO3 31.5 H Arterial Blood Base Excess 6.1 H Arterial Blood 82.3 L Oxygen Saturation Randy Test ACCEPTAB Arterial Blood Gas Right Radial Puncture Site Arterial 0.7 Blood Carboxyhemoglobin Arterial Blood Methemoglobin 0.3 Blood Gas A-a O2 616.0 H Differential Oxyhemoglobin Percent 81.5 L Blood Gas Temperature 37.0 Blood Gas Modality HFNC FiO2 100.0 Blood Gas Critical Value Pamella MILLAN RN Read Back Blood Gas Notified Whom DT Blood Gas Notified Time 05/27/2018 8:18:18 AM Medications Medication Current Medications IV Flush (NS 3 ml) 3 ml PER PROTOCOL IV ; Start 05/23/18 at 16:00 Ondansetron HCl (Zofran Inj) 4 mg Q6H PRN IV NAUSEA/VOMITING; Start 05/23/18 at 16:00 Acetaminophen (Tylenol Tab) 650 mg Q6H PRN PO .PAIN 1-3 OR TEMP; Start 05/23/18 at 16:00 Enoxaparin Sodium (Lovenox) 30 mg DAILY SC Last administered on 05/27/18at 08:39; Admin Dose 30 MG; Start 05/24/18 at 09:00 Albuterol (Ventolin Hfa) 2 puff Q4H PRN INH WHEEZING AND SOB; Start 05/23/18 at 21:00 Levothyroxine Sodium (Synthroid) 125 mcg BEFORE BREAKFAST PO Last administered on 05/27/18at 06:41; Admin Dose 125 MCG; Start 05/24/18 at 07:00 Meropenem/Sodium Chloride 50 ml @ 100 mls/hr Q12 IVPB Last administered on 05/27/18at 08:38; Admin Dose 100 MLS/HR; Start 05/24/18 at 15:30 Morphine Sulfate (morphine) 6 mg Q4H PRN PO SEVERE PAIN LEVEL 7-10; Start 05/24/18 at 23:00 Methylprednisolone Sodium Succinate (Solu-Medrol) 40 mg Q6 IV Last administered on 05/27/18at 12:16; Admin Dose 40 MG; Start 05/25/18 at 12:00 Furosemide (Lasix) 40 mg BID DIURETICS IV Last administered on 05/27/18at 06:41; Admin Dose 40 MG; Start 05/26/18 at 18:00 Famotidine (Pepcid Iv) 20 mg DAILY IV ; Start 05/28/18 at 09:00 ZAKIYA WERNER May 27, 2018 16:24
[2018-05-28] VITALS (28 sets, daily range): BP systolic 103–140; BP diastolic 43–92; PULSE 52–72; RESP 18–33
[2018-05-28] MEDS: METHYLPREDNISOLONE 40 MG INJ IV SCH ×5 (00:32→23:48)
[2018-05-28] MEDS: LEVOTHYROXINE 125 MCG TAB PO SCH (06:26)
[2018-05-28] MEDS: FUROSEMIDE 40 MG INJ IV SCH ×2 (06:26→17:29)
[2018-05-28] MEDS: MEROPENEM 1 GM/50ML(PMX) 50 ML IVPB SCH ×2 (08:30→20:00)
[2018-05-28] MEDS: FAMOTIDINE 20 MG INJ IV SCH (08:30)
[2018-05-28] MEDS: ENOXAPARIN 30 MG/0.3 ML SYG SC SCH (08:32)
--- NOTE | 2018-05-28 09:59 | PN ---
Date/Time of Note Date/Time of Note DATE: 05/28/18 TIME: 09:59 Assessment/Plan VTE Prophylaxis Risk score (from [facility] [place])>0 risk: 9 SCD applied (from [facility] [place]): Yes SCD contraindicated: other Pharmacological prophylaxis: other Pharm contraindication: other Lines/Catheters [facility]from [facility] Saline Lock Urinary Cath still in place: Yes Reason Cath still needed: urinary retention Assessment/Plan Assessment/Plan -Septic shock. Continue antibiotics per ID. Dr. Akins is following in infection disease consultation. -Community-acquired pneumonia -Acute hypoxemic respiratory failure. Dr. Lepe is following in pulmonology consultation. -CHF exacerbation. Continue Lasix monitor electrolytes. Dr. Alford is follo wing in cardiology consultation. -Hypothyroidism, continue levothyroxine. -Liver cirrhosis Total critical care time spent 35 mins.Further recommendations based on clinical course. Plan of care discussed with Dr. Santiago. Result Diagram: 05/28/18 0548 05/28/18 0547 Results 24hrs Laboratory Tests Test 05/28/18 05:47 05/28/18 05:48 05/28/18 07:00 Sodium Level 144 Potassium Level 3.6 Chloride Level 101 Carbon Dioxide Level 38 H Anion Gap 5 Blood Urea Nitrogen 35 H Creatinine 0.70 Est Glomerular Filtrat Rate mL/min Glucose Level 145 Calcium Level 7.8 L White Blood Count 11.5 #H Red Blood Count 3.60 L Hemoglobin 12.7 Hematocrit 38.5 Mean Corpuscular Volume 106.9 H Mean Corpuscular Hemoglobin 35.3 H Mean Corpuscular 33.0 Hemoglobin Concent Red Cell Distribution Width 15.5 H Platelet Count 64 L Mean Platelet Volume 11.9 H Immature Granulocytes % 0.800 H Neutrophils % 90.9 H Lymphocytes % 4.5 L Monocytes % 3.7 Eosinophils % 0.0 Basophils % 0.1 Nucleated Red Blood Cells % 0.0 Immature Granulocytes # 0.090 H Neutrophils # 10.5 H Lymphocytes # 0.5 L Monocytes # 0.4 Eosinophils # 0.0 Basophils # 0.0 Nucleated Red Blood Cells # 0.0 Blood Gas Specimen Source Blood arterial Arterial Blood Date Drawn 05/28/2018 7:44:56 AM Arterial Blood pH 7.444 (Temp corrected) Arterial Blood pCO2 53.9 H (Temp correct) Arterial Blood pO2 75.2 L (Temp corrected) Arterial Blood HCO3 36.1 H Arterial Blood Base Excess 10.0 H Arterial Blood 93.8 L Oxygen Saturation Randy Test N/A Arterial Blood Gas Right Brachial Puncture Site Arterial 0.7 Blood Carboxyhemoglobin Arterial Blood Methemoglobin 0.3 Blood Gas A-a O2 583.9 H Differential Oxyhemoglobin Percent 92.9 L Blood Gas Temperature 37.0 Blood Gas Respiration Rate 14.0 Blood Gas Actual 22 Respiration Rate Blood Gas Modality MASK - BIPAP FiO2 100.0 Blood Gas Pressure Support 10 Blood Gas IPAP/EPAP Ratio 15/5 Blood Gas Notified Whom TM Blood Gas Notified Time 05/28/2018 8:02:42 AM Subjective 24 Hr Interval Summary Free Text/Dictation nad cont ICU CARE no new events reported overnight Subjective hx not possible: pt non-verbal Constitutional: requiring IVF, requiring O2 Exam/Review of Systems Exam Vitals Vital Signs Date Temp Pulse Resp B/P (MAP) Pulse Ox O2 O2 Flow FiO2 Time Delivery Rate 05/28/18 62 26 123/47 93 BIPAP 09:00 (72) 05/28/18 100 08:54 05/28/18 97.7 08:00 05/27/18 15.0 08:00 Intake and Output 05/27/18 05/27/18 05/28/18 1515:00 23:00 07:00 IntakeIntake Total 50 ml 200 ml OutputOutput Total 630 ml 280 ml 1800 ml BalanceBalance -580 ml -280 ml -1600 ml Constitutional: well developed, non-verbal, frail Psych: nl mood/affect Eyes: nl lids ENMT: nl external ears & nose Neck: supple Respiratory: diminished breath sounds (bilaterally) Cardiovascular: nl pulses, other (s1s2) Gastrointestinal: soft Musculoskeletal: muscle weakness Neurological: unresponsive Results Results 24hrs Laboratory Tests Test 05/28/18 05:47 05/28/18 05:48 05/28/18 07:00 Sodium Level 144 Potassium Level 3.6 Chloride Level 101 Carbon Dioxide Level 38 H Anion Gap 5 Blood Urea Nitrogen 35 H Creatinine 0.70 Est Glomerular Filtrat Rate mL/min Glucose Level 145 Calcium Level 7.8 L White Blood Count 11.5 #H Red Blood Count 3.60 L Hemoglobin 12.7 Hematocrit 38.5 Mean Corpuscular Volume 106.9 H Mean Corpuscular Hemoglobin 35.3 H Mean Corpuscular 33.0 Hemoglobin Concent Red Cell Distribution Width 15.5 H Platelet Count 64 L Mean Platelet Volume 11.9 H Immature Granulocytes % 0.800 H Neutrophils % 90.9 H Lymphocytes % 4.5 L Monocytes % 3.7 Eosinophils % 0.0 Basophils % 0.1 Nucleated Red Blood Cells % 0.0 Immature Granulocytes # 0.090 H Neutrophils # 10.5 H Lymphocytes # 0.5 L Monocytes # 0.4 Eosinophils # 0.0 Basophils # 0.0 Nucleated Red Blood Cells # 0.0 Blood Gas Specimen Source Blood arterial Arterial Blood Date Drawn 05/28/2018 7:44:56 AM Arterial Blood pH 7.444 (Temp corrected) Arterial Blood pCO2 53.9 H (Temp correct) Arterial Blood pO2 75.2 L (Temp corrected) Arterial Blood HCO3 36.1 H Arterial Blood Base Excess 10.0 H Arterial Blood 93.8 L Oxygen Saturation Randy Test N/A Arterial Blood Gas Right Brachial Puncture Site Arterial 0.7 Blood Carboxyhemoglobin Arterial Blood Methemoglobin 0.3 Blood Gas A-a O2 583.9 H Differential Oxyhemoglobin Percent 92.9 L Blood Gas Temperature 37.0 Blood Gas Respiration Rate 14.0 Blood Gas Actual 22 Respiration Rate Blood Gas Modality MASK - BIPAP FiO2 100.0 Blood Gas Pressure Support 10 Blood Gas IPAP/EPAP Ratio 25/08 Blood Gas Notified Whom TM Blood Gas Notified Time 05/28/2018 8:02:42 AM Medications Medication Current Medications IV Flush (NS 3 ml) 3 ml PER PROTOCOL IV ; Start 05/23/18 at 16:00 Ondansetron HCl (Zofran Inj) 4 mg Q6H PRN IV NAUSEA/VOMITING; Start 05/23/18 at 16:00 Acetaminophen (Tylenol Tab) 650 mg Q6H PRN PO .PAIN 1-3 OR TEMP; Start 05/23/18 at 16:00 Enoxaparin Sodium (Lovenox) 30 mg DAILY SC Last administered on 05/28/18at 08:32; Admin Dose 30 MG; Start 05/24/18 at 09:00 Albuterol (Ventolin Hfa) 2 puff Q4H PRN INH WHEEZING AND SOB; Start 05/23/18 at 21:00 Levothyroxine Sodium (Synthroid) 125 mcg BEFORE BREAKFAST PO Last administered on 05/28/18 06:26; Admin Dose 125 MCG; Start 05/24/18 at 07:00 Meropenem/Sodium Chloride 50 ml @ 100 mls/hr Q12 IVPB Last administered on 08:30; Admin Dose 100 MLS/HR; Start 05/24/18 at 15:30 Morphine Sulfate (morphine) 6 mg Q4H PRN PO SEVERE PAIN LEVEL 7-10; Start 05/24/18 at 23:00 Methylprednisolone Sodium Succinate (Solu-Medrol) 40 mg Q6 IV Last administered on 05/28/18 06:26; Admin Dose 40 MG; Start 05/25/18 at 12:00 Furosemide (Lasix) 40 mg BID DIURETICS IV Last administered on 05/28/18 06:26; Admin Dose 40 MG; Start 05/26/18 at 18:00 Famotidine (Pepcid Iv) 20 mg DAILY IV Last administered on 05/28/18 08:30; A dmin Dose 20 MG; Start 05/28/18 at 09:00 TERRA LI May 28, 2018 9:59 am
--- NOTE | 2018-05-28 11:09 | CONS ---
Consult Date/Type/Reason Admit Date/Time May 23, 2018 at 14:40 Initial Consult Date Type of Consult Pulmonary Requesting Provider: GURMEET CAMPOS MD Date/Time of Note DATE: 05/28/18 TIME: 11:08 Subjective Patient continues high flow O2 with a marked desaturations on minimal movement. Objective Vital Signs Date Temp Pulse Resp B/P (MAP) Pulse Ox O2 O2 Flow FiO2 Time Delivery Rate 05/28/18 92 100 10:39 05/28/18 58 20 Nasal 10:39 Cannula 05/28/18 123/47 09:00 (72) 05/28/18 97.7 08:00 05/27/18 15.0 08:00 Intake and Output 05/27/18 05/27/18 05/28/18 1515:00 23:00 07:00 IntakeIntake Total 50 ml 200 ml OutputOutput Total 630 ml 280 ml 1800 ml BalanceBalance -580 ml -280 ml -1600 ml Exam GENERAL: Frail elderly lady on high flow O2 VITAL SIGNS: per chart NECK: Supple. No JVD or lymphadenopathy. CARDIAC EXAM: S1, S2. No added sounds or murmurs. CHEST: Diminished air entry bilaterally with rales ABDOMEN: Soft, nontender. No guarding or rebound. EXTREMITIES: No cyanosis, clubbing or edema. NEUROLOGIC: Generalized weakness. No focal deficits. Vent Setting Fraction of Inspired Oxygen pe: 100 Results/Medications Result Diagram: 05/28/18 0548 05/28/18 0547 Results 24 hrs Laboratory Tests Test 05/28/18 05:47 05/28/18 05:48 05/28/18 07:00 Sodium Level 144 Potassium Level 3.6 Chloride Level 101 Carbon Dioxide Level 38 H Anion Gap 5 Blood Urea Nitrogen 35 H Creatinine 0.70 Est Glomerular Filtrat Rate mL/min Glucose Level 145 Calcium Level 7.8 L White Blood Count 11.5 #H Red Blood Count 3.60 L Hemoglobin 12.7 Hematocrit 38.5 Mean Corpuscular Volume 106.9 H Mean Corpuscular Hemoglobin 35.3 H Mean Corpuscular 33.0 Hemoglobin Concent Red Cell Distribution Width 15.5 H Platelet Count 64 L Mean Platelet Volume 11.9 H Immature Granulocytes % 0.800 H Neutrophils % 90.9 H Lymphocytes % 4.5 L Monocytes % 3.7 Eosinophils % 0.0 Basophils % 0.1 Nucleated Red Blood Cells % 0.0 Immature Granulocytes # 0.090 H Neutrophils # 10.5 H Lymphocytes # 0.5 L Monocytes # 0.4 Eosinophils # 0.0 Basophils # 0.0 Nucleated Red Blood Cells # 0.0 Blood Gas Specimen Source Blood arterial Arterial Blood Date Drawn 05/28/2018 7:44:56 AM Arterial Blood pH 7.444 (Temp corrected) Arterial Blood pCO2 53.9 H (Temp correct) Arterial Blood pO2 75.2 L (Temp corrected) Arterial Blood HCO3 36.1 H Arterial Blood Base Excess 10.0 H Arterial Blood 93.8 L Oxygen Saturation Randy Test N/A Arterial Blood Gas Right Brachial Puncture Site Arterial 0.7 Blood Carboxyhemoglobin Arterial Blood Methemoglobin 0.3 Blood Gas A-a O2 583.9 H Differential Oxyhemoglobin Percent 92.9 L Blood Gas Temperature 37.0 Blood Gas Respiration Rate 14.0 Blood Gas Actual 22 Respiration Rate Blood Gas Modality MASK - BIPAP FiO2 100.0 Blood Gas Pressure Support 10 Blood Gas IPAP/EPAP Ratio 25/08 Blood Gas Notified Whom TM Blood Gas Notified Time 05/28/2018 8:02:42 AM Medications Current Medications IV Flush (NS 3 ml) 3 ml PER PROTOCOL IV ; Start 05/23/18 at 16:00 Ondansetron HCl (Zofran Inj) 4 mg Q6H PRN IV NAUSEA/VOMITING; Start 05/23/18 at 16:00 Acetaminophen (Tylenol Tab) 650 mg Q6H PRN PO .PAIN 1-3 OR TEMP; Start 05/23/18 at 16:00 Enoxaparin Sodium (Lovenox) 30 mg DAILY SC Last administered on 05/28/18at 08:32; Admin Dose 30 MG; Start 05/24/18 at 09:00 Albuterol (Ventolin Hfa) 2 puff Q4H PRN INH WHEEZING AND SOB; Start 05/23/18 at 21:00 Levothyroxine Sodium (Synthroid) 125 mcg BEFORE BREAKFAST PO Last administered on 05/28/18at 06:26; Admin Dose 125 MCG; Start 05/24/18 at 07:00 Meropenem/Sodium Chloride 50 ml @ 100 mls/hr Q12 IVPB Last administered on 05/14 08:30; Admin Dose 100 MLS/HR; Start 05/24/18 at 15:30 Morphine Sulfate (morphine) 6 mg Q4H PRN PO SEVERE PAIN LEVEL 7-10; Start 05/24/18 at 23:00 Methylprednisolone Sodium Succinate (Solu-Medrol) 40 mg Q6 IV Last administered on 05/28/18at 06:26; Admin Dose 40 MG; Start 05/25/18 at 12:00 Furosemide (Lasix) 40 mg BID DIURETICS IV Last administered on 05/28/18at 06:26; Admin Dose 40 MG; Start 05/26/18 at 18:00 Famotidine (Pepcid Iv) 20 mg DAILY IV Last administered on 05/28/18at 08:30; Ad min Dose 20 MG; Start 05/28/18 at 09:00 Assessment/Plan Hospital Course (Demo Recall) IMPRESSION: 1. Acute hypoxemic respiratory failure, probably secondary to pulmonary edema. 2. Possible component of aspiration pneumonia 3. Preserved ejection fraction with mild to moderate aortic stenosis RECOMMENDATIONS: 1. Aspiration precautions 2. Diuretics. 3. Supplemental O2. 4. Antibiotics and steroids 5. DVT and GI prophylaxis. Prognosis guarded consider discussion with family regarding goals of care. Critical care time 40 minutes may require Intubation with tracheostomy if not able to decrease FiO2. oil field worker to discuss goals of care with family. MARIA GUADALUPE PAUL MD, [facility] May 28, 2018 11:09
--- NOTE | 2018-05-28 12:58 | CONS ---
Assessment/Plan Assessment/Plan Hospital Course (Demo Recall) Patient remains on high flow oxygen looks comfortable no fevers overnight WBC 11.5 platelets 64 neutrophils 90.9 BUN 35 creatinine 0.70 Chest x-ray this morning revealed slightly improved diffuse interstitial and alveolar infiltrates Microbiology: Blood and urine cultures remain negative Allergy: Penicillin Antimicrobials: Meropenem Physical examination: This is an obese well-developed elderly woman who is lying comfortably in bed. Head atraumatic normocephalic. Neck is supple. Chest rise symmetrical, breath sounds diminished bases. Heart: S1-S2. Abdomen soft bowel sounds present. Extremities no cyanosis Assessment: 1. Acute hypoxemic respiratory failure 2. Pulmonary edema 3. Pneumonia 4. Mild to moderate aortic stenosis 5. Cirrhosis 6. Urinary tract infection Plan: Remains unchanged, continue present care, steroids, antibiotics, follow pulmonary and cardiology recommendations Consultation Date/Type/Reason Admit Date/Time May 23, 2018 at 14:40 Initial Consult Date Type of Consult id Requesting Provider: GURMEET CAMPOS MD Date/Time of Note DATE: 05/28/18 TIME: 12:57 Exam/Review of Systems Exam Vitals Vital Signs Date Temp Pulse Resp B/P (MAP) Pulse Ox O2 O2 Flow FiO2 Time Delivery Rate 05/28/18 60 20 91 100 12:22 05/28/18 129/50 BIPAP 12:00 (76) 05/28/18 97.7 08:00 05/27/18 15.0 08:00 Intake and Output 05/27/18 05/27/18 05/28/18 1515:00 23:00 07:00 IntakeIntake Total 50 ml 200 ml OutputOutput Total 630 ml 280 ml 1800 ml BalanceBalance -580 ml -280 ml -1600 ml Results Result Diagram: 05/28/18 0548 05/28/18 0547 Results 24hrs Laboratory Tests Test 05/28/18 05:47 05/28/18 05:48 05/28/18 07:00 Sodium Level 144 Potassium Level 3.6 Chloride Level 101 Carbon Dioxide Level 38 H Anion Gap 5 Blood Urea Nitrogen 35 H Creatinine 0.70 Est Glomerular Filtrat Rate mL/min Glucose Level 145 Calcium Level 7.8 L White Blood Count 11.5 #H Red Blood Count 3.60 L Hemoglobin 12.7 Hematocrit 38.5 Mean Corpuscular Volume 106.9 H Mean Corpuscular Hemoglobin 35.3 H Mean Corpuscular 33.0 Hemoglobin Concent Red Cell Distribution Width 15.5 H Platelet Count 64 L Mean Platelet Volume 11.9 H Immature Granulocytes % 0.800 H Neutrophils % 90.9 H Lymphocytes % 4.5 L Monocytes % 3.7 Eosinophils % 0.0 Basophils % 0.1 Nucleated Red Blood Cells % 0.0 Immature Granulocytes # 0.090 H Neutrophils # 10.5 H Lymphocytes # 0.5 L Monocytes # 0.4 Eosinophils # 0.0 Basophils # 0.0 Nucleated Red Blood Cells # 0.0 Blood Gas Specimen Source Blood arterial Arterial Blood Date Drawn 05/28/2018 7:44:56 AM Arterial Blood pH 7.444 (Temp corrected) Arterial Blood pCO2 53.9 H (Temp correct) Arterial Blood pO2 75.2 L (Temp corrected) Arterial Blood HCO3 36.1 H Arterial Blood Base Excess 10.0 H Arterial Blood 93.8 L Oxygen Saturation Randy Test N/A Arterial Blood Gas Right Brachial Puncture Site Arterial 0.7 Blood Carboxyhemoglobin Arterial Blood Methemoglobin 0.3 Blood Gas A-a O2 583.9 H Differential Oxyhemoglobin Percent 92.9 L Blood Gas Temperature 37.0 Blood Gas Respiration Rate 14.0 Blood Gas Actual 22 Respiration Rate Blood Gas Modality MASK - BIPAP FiO2 100.0 Blood Gas Pressure Support 10 Blood Gas IPAP/EPAP Ratio 15/5 Blood Gas Notified Whom TM Blood Gas Notified Time 05/28/2018 8:02:42 AM Medications Medication Current Medications IV Flush (NS 3 ml) 3 ml PER PROTOCOL IV ; Start 05/23/18 at 16:00 Ondansetron HCl (Zofran Inj) 4 mg Q6H PRN IV NAUSEA/VOMITING; Start 05/23/18 at 16:00 Acetaminophen (Tylenol Tab) 650 mg Q6H PRN PO .PAIN 1-3 OR TEMP; Start 05/23/18 at 16:00 Enoxaparin Sodium (Lovenox) 30 mg DAILY SC Last administered on 05/28/18at 08:32; Admin Dose 30 MG; Start 05/24/18 at 09:00 Albuterol (Ventolin Hfa) 2 puff Q4H PRN INH WHEEZING AND SOB; Start 05/23/18 at 21:00 Levothyroxine Sodium (Synthroid) 125 mcg BEFORE BREAKFAST PO Last administered on 05/28/18 06:26; Admin Dose 125 MCG; Start 05/24/18 at 07:00 Meropenem/Sodium Chloride 50 ml @ 100 mls/hr Q12 IVPB Last administered on 05/28/18 08:30; Admin Dose 100 MLS/HR; Start 05/24/18 at 15:30 Morphine Sulfate (morphine) 6 mg Q4H PRN PO SEVERE PAIN LEVEL 7-10; Start at 23:00 Methylprednisolone Sodium Succinate (Solu-Medrol) 40 mg Q6 IV Last administered on 05/28/18 12:09; Admin Dose 40 MG; Start 05/25/18 at 12:00 Furosemide (Lasix) 40 mg BID DIURETICS IV Last administered on 05/28/18 06:26; Admin Dose 40 MG; Start 05/26/18 at 18:00 Famotidine (Pepcid Iv) 20 mg DAILY IV Last administered on 05/28/18 08:30; Admin Dose 20 MG; Start 05/28/18 at 09:00 MORGAN CORDOBA NP May 28, 2018 12:58
--- NOTE | 2018-05-28 13:02 | CONS ---
Assessment/Plan Cardiology Heart Failure Type: Acute on Chronic Heart Failure Type: Diastolic Assessment/Plan Hospital Course (Demo Recall) IMPRESSION: 1. Congestive heart failure exacerbation with an echo from 2016, at that time revealing a preserved EF and had a mild to moderate aortic stenosis. Thus, diastolic, acute on chronic.- Echo again tis time with preserved EF. ? CHF so severe given NL EF ? ARDS/pulm fibrosis 2. Shortness of breath secondary to #1. 3. Tachycardia on admit. Sinus tachycardia, now improved. 4. Hypothyroidism. 5. Cirrhosis. 6. Leukocytosis. 7. Anemia and thrombocytopenia. 8. Coagulopathy. 9. anxiety Recc: -ICU -Continue o2 support with BIPAP at this time -Continue steroids/abx's -Continue lasix diuresis Consultation Date/Type/Reason Admit Date/Time May 23, 2018 at 14:40 Initial Consult Date 05/24/18 Type of Consult Cardiology Reason for Consultation CHF Requesting Provider: GURMEET CAMPOS MD Date/Time of Note DATE: 05/28/18 TIME: 12:59 Exam/Review of Systems Vital Signs Vitals Vital Signs Date Temp Pulse Resp B/P (MAP) Pulse Ox O2 O2 Flow FiO2 Time Delivery Rate 05/28/18 60 20 91 100 12:22 05/28/18 129/50 BIPAP 12:00 (76) 05/28/18 97.7 08:00 05/27/18 15.0 08:00 Intake and Output 05/27/18 05/27/18 05/28/18 1414:59 22:59 06:59 IntakeIntake Total 50 ml 200 ml OutputOutput Total 630 ml 280 ml 1000 ml BalanceBalance -580 ml -280 ml -800 ml Exam Exam Review of Systems: CONSTITUTIONAL: No fevers, chills. PULMONARY: No sob CARDIOVASCULAR: No chest pain/palpitations GASTROINTESTINAL: No nausea/vomiting. GENITOURINARY: No hematuria/dysuria. MUSCULOSKELETAL: No myagias/arthalgias. PSYCHIATRIC: The patient denies depression. NEUROLOGIC: No weakness Constitutional: alert Psych: no complaints Head: normocephalic ENMT: mucosa pink and moist, other (BIPAP in place) Neck: supple, jvd (9 cm water) Labs Result Diagram: 05/28/18 0548 05/28/18 0547 Results 24hrs Laboratory Tests Test 05/28/18 05:47 05/28/18 05:48 05/28/18 07:00 Sodium Level 144 Potassium Level 3.6 Chloride Level 101 Carbon Dioxide Level 38 H Anion Gap 5 Blood Urea Nitrogen 35 H Creatinine 0.70 Est Glomerular Filtrat Rate mL/min Glucose Level 145 Calcium Level 7.8 L White Blood Count 11.5 #H Red Blood Count 3.60 L Hemoglobin 12.7 Hematocrit 38.5 Mean Corpuscular Volume 106.9 H Mean Corpuscular Hemoglobin 35.3 H Mean Corpuscular 33.0 Hemoglobin Concent Red Cell Distribution Width 15.5 H Platelet Count 64 L Mean Platelet Volume 11.9 H Immature Granulocytes % 0.800 H Neutrophils % 90.9 H Lymphocytes % 4.5 L Monocytes % 3.7 Eosinophils % 0.0 Basophils % 0.1 Nucleated Red Blood Cells % 0.0 Immature Granulocytes # 0.090 H Neutrophils # 10.5 H Lymphocytes # 0.5 L Monocytes # 0.4 Eosinophils # 0.0 Basophils # 0.0 Nucleated Red Blood Cells # 0.0 Blood Gas Specimen Source Blood arterial Arterial Blood Date Drawn 05/28/2018 7:44:56 AM Arterial Blood pH 7.444 (Temp corrected) Arterial Blood pCO2 53.9 H (Temp correct) Arterial Blood pO2 75.2 L (Temp corrected) Arterial Blood HCO3 36.1 H Arterial Blood Base Excess 10.0 H Arterial Blood 93.8 L Oxygen Saturation Randy Test N/A Arterial Blood Gas Right Brachial Puncture Site Arterial 0.7 Blood Carboxyhemoglobin Arterial Blood Methemoglobin 0.3 Blood Gas A-a O2 583.9 H Differential Oxyhemoglobin Percent 92.9 L Blood Gas Temperature 37.0 Blood Gas Respiration Rate 14.0 Blood Gas Actual 22 Respiration Rate Blood Gas Modality MASK - BIPAP FiO2 100.0 Blood Gas Pressure Support 10 Blood Gas IPAP/EPAP Ratio 25/08 Blood Gas Notified Whom TM Blood Gas Notified Time 05/28/2018 8:02:42 AM Medications Medications Current Medications IV Flush (NS 3 ml) 3 ml PER PROTOCOL IV ; Start 05/23/18 at 16:00 Ondansetron HCl (Zofran Inj) 4 mg Q6H PRN IV NAUSEA/VOMITING; Start 05/23/18 at 16:00 Acetaminophen (Tylenol Tab) 650 mg Q6H PRN PO .PAIN 1-3 OR TEMP; Start 05/23/18 at 16:00 Enoxaparin Sodium (Lovenox) 30 mg DAILY SC Last administered on 05/28/18 08:32; Admin Dose 30 MG; Start 05/24/18 at 09:00 Albuterol (Ventolin Hfa) 2 puff Q4H PRN INH WHEEZING AND SOB; Start 05/23/18 at 21:00 Levothyroxine Sodium (Synthroid) 125 mcg BEFORE BREAKFAST PO Last administered on 05/28/18 06:26; Admin Dose 125 MCG; Start 05/24/18 at 07:00 Meropenem/Sodium Chloride 50 ml @ 100 mls/hr Q12 IVPB Last administered on 05/28/18 08:30; Admin Dose 100 MLS/HR; Start 05/24/18 at 15:30 Morphine Sulfate (morphine) 6 mg Q4H PRN PO SEVERE PAIN LEVEL 7-10; Start 03/01 at 23:00 Methylprednisolone Sodium Succinate (Solu-Medrol) 40 mg Q6 IV Last administered on 05/28/18 12:09; Admin Dose 40 MG; Start 05/25/18 at 12:00 Furosemide (Lasix) 40 mg BID DIURETICS IV Last administered on 05/28/18 06:26; Admin Dose 40 MG; Start 05/26/18 at 18:00 Famotidine (Pepcid Iv) 20 mg DAILY IV Last administered on 05/28/18 08:30; Admin Dose 20 MG; Start 05/28/18 at 09:00 JOSE M ZENG May 28, 2018 13:02
[2018-05-29] VITALS (43 sets, daily range): BP systolic 109–173; BP diastolic 40–103; PULSE 51–78; RESP 16–35
[2018-05-29] MEDS: FUROSEMIDE 40 MG INJ IV SCH ×2 (06:23→18:01)
[2018-05-29] MEDS: METHYLPREDNISOLONE 40 MG INJ IV SCH ×3 (06:23→18:00)
[2018-05-29] MEDS: MEROPENEM 1 GM/50ML(PMX) 50 ML IVPB SCH ×2 (08:40→20:19)
[2018-05-29] MEDS: LEVOTHYROXINE 125 MCG TAB PO SCH (08:40)
[2018-05-29] MEDS: ENOXAPARIN 30 MG/0.3 ML SYG SC SCH ×2 (08:42→09:00)
[2018-05-29] MEDS: FAMOTIDINE 20 MG INJ IV SCH (09:00)
--- NOTE | 2018-05-29 09:59 | CONS ---
Consult Date/Type/Reason Admit Date/Time May 23, 2018 at 14:40 Initial Consult Date Type of Consult Pulmonary Requesting Provider: GURMEET CAMPOS MD Date/Time of Note DATE: 05/29/18 TIME: 09:57 Subjective patient continues bilevel ventilation overnight 100%. No significant radiographic changes on this morning's x-ray. Objective Vital Signs Date Temp Pulse Resp B/P (MAP) Pulse Ox O2 O2 Flow FiO2 Time Delivery Rate 05/29/18 92 100 09:38 05/29/18 97.4 54 19 143/53 BIPAP 06:00 (83) 05/27/18 15.0 08:00 Intake and Output 05/28/18 05/28/18 05/29/18 1515:00 23:00 07:00 IntakeIntake Total 540 ml 60 ml 0 ml OutputOutput Total 700 ml 840 ml 335 ml BalanceBalance -160 ml -780 ml -335 ml Exam GENERAL: Frail elderly lady on high flow O2 VITAL SIGNS: per chart NECK: Supple. No JVD or lymphadenopathy. CARDIAC EXAM: S1, S2. No added sounds or murmurs. CHEST: Diminished air entry bilaterally with rales ABDOMEN: Soft, nontender. No guarding or rebound. EXTREMITIES: No cyanosis, clubbing or edema. NEUROLOGIC: Generalized weakness. No focal deficits. Vent Setting Fraction of Inspired Oxygen pe: 100 Results/Medications Result Diagram: 05/29/18 0545 05/29/18 0545 Results 24 hrs Laboratory Tests Test 05/29/18 05:45 05/29/18 07:00 White Blood Count 8.0 # Red Blood Count 3.87 L Hemoglobin 13.7 Hematocrit 42.1 Mean Corpuscular Volume 108.8 H Mean Corpuscular Hemoglobin 35.4 H Mean Corpuscular Hemoglobin Concent 32.5 Red Cell Distribution Width 15.6 H Platelet Count 58 L Mean Platelet Volume 12.3 H Immature Granulocytes % 0.500 H Neutrophils % 87.8 H Lymphocytes % 5.1 L Monocytes % 6.3 Eosinophils % 0.0 Basophils % 0.3 Nucleated Red Blood Cells % 0.0 Immature Granulocytes # 0.040 H Neutrophils # 7.0 Lymphocytes # 0.4 L Monocytes # 0.5 Eosinophils # 0.0 Basophils # 0.0 Nucleated Red Blood Cells # 0.0 Sodium Level 147 H Potassium Level 3.3 L Chloride Level 94 L Carbon Dioxide Level 45 *H Anion Gap 8 Blood Urea Nitrogen 34 H Creatinine 0.71 Est Glomerular Filtrat Rate mL/min Glucose Level 154 Calcium Level 8.1 L Blood Gas Specimen Source Blood arterial Arterial Blood Date Drawn 05/29/2018 8:20:38 AM Arterial Blood pH (Temp corrected) 7.490 H Arterial Blood pCO2 (Temp correct) 52.5 H Arterial Blood pO2 (Temp corrected) 73.3 L Arterial Blood HCO3 39.1 H Arterial Blood Base Excess 13.4 H Arterial Blood Oxygen Saturation 94.5 L Randy Test ACCEPTAB Arterial Blood Gas Puncture Site Right Brachial Arterial Blood Carboxyhemoglobin 0.6 Arterial Blood Methemoglobin 0.3 Blood Gas A-a O2 Differential 587.2 H Oxyhemoglobin Percent 93.6 Blood Gas Temperature 37.0 Blood Gas Respiration Rate 14.0 Blood Gas Modality MASK - BIPAP FiO2 100.0 Blood Gas IPAP/EPAP Ratio 15/5 Blood Gas Notified Whom Kelsey RAJAN SYSTEMS ADMINISTRATOR Blood Gas Notified Time 05/29/2018 8:35:49 AM Medications Current Medications IV Flush (NS 3 ml) 3 ml PER PROTOCOL IV ; Start 05/23/18 at 16:00 Ondansetron HCl (Zofran Inj) 4 mg Q6H PRN IV NAUSEA/VOMITING; Start 05/23/18 at 16:00 Acetaminophen (Tylenol Tab) 650 mg Q6H PRN PO .PAIN 1-3 OR TEMP; Start 05/23/18 at 16:00 Enoxaparin Sodium (Lovenox) 30 mg DAILY SC Last administered on 05/29/18at 08:42; Admin Dose 30 MG; Start 05/24/18 at 09:00 Albuterol (Ventolin Hfa) 2 puff Q4H PRN INH WHEEZING AND SOB; Start 05/23/18 at 21:00 Levothyroxine Sodium (Synthroid) 125 mcg BEFORE BREAKFAST PO Last administered on 05/29/18at 08:40; Admin Dose 125 MCG; Start 05/24/18 at 07:00 Meropenem/Sodium Chloride 50 ml @ 100 mls/hr Q12 IVPB Last administered on 05/29/18at 08:40; Admin Dose 100 MLS/HR; Start 05/24/18 at 15:30 Morphine Sulfate (morphine) 6 mg Q4H PRN PO SEVERE PAIN LEVEL 7-10; Start 05/24/18 at 23:00 Methylprednisolone Sodium Succinate (Solu-Medrol) 40 mg Q6 IV Last administered on 05/29/18at 06:23; Admin Dose 40 MG; Start 05/25/18 at 12:00 Furosemide (Lasix) 40 mg BID DIURETICS IV Last administered on 05/29/18at 06:23; Admin Dose 40 MG; Start 05/26/18 at 18:00 Famotidine (Pepcid Iv) 20 mg DAILY IV Last administered on 05/28/18at 08:30; Admin Dose 20 MG; Start 05/28/18 at 09:00 Assessment/Plan Hospital Course (Demo Recall) IMPRESSION: 1. Acute hypoxemic respiratory failure, likely ARDS. Possible aspiration pneumonia. 2. Patient is likely euvolemic at present. 3. Preserved ejection fraction with mild to moderate aortic stenosis RECOMMENDATIONS: 1. Aspiration precautions 2. Diuretics. 3. Supplemental O2. 4. Antibiotics and steroids 5. DVT and GI prophylaxis. Prognosis guarded consider discussion with family regarding goals of care. Critical care time 40 minutes may require Intubation with tracheostomy if not able to decrease FiO2. trailhead construction worker to discuss goals of care with family. Family conference scheduled. MARIA GUADALUPE PAUL MD, [facility] May 29, 2018 09:59
--- NOTE | 2018-05-29 11:08 | PN ---
DATE: 05/28/2018 ADDENDUM I spoke with the patient's family regarding goals of care. The patient's granddaughter, Ms. Negin Parsons, happens to be an ICU nurse in [place]. I explained to her regarding patient's condition and family has told me to speak with her regarding goals of care. The patient's condition, code stat us and further goals of care discussed with her. She requested that patient can be intubated if need ed, but she requested no chest compression or cardioversion in case of cardiac arrest. I requested t he patient's nurse to notify marine engine machinist apprentice about family's decision. Dictated By: GURMEET CAMPOS MD AB/NTS Conf#: [id number] DID#: [id number] CC: TAMMY WORLEY MD;*EndCC*
[2018-05-29] MEDS: POTASSIUM CHLORIDE 100 ML IVPB SCH ×2 (11:31→12:53)
--- NOTE | 2018-05-29 12:07 | CONS ---
Assessment/Plan Assessment/Plan Hospital Course (Demo Recall) ID PROGRESS NOTE CURRENT ABX: DAY #7 => Merrem #6 s/p Levaquin 05/23/18 05/29/18 0545 05/29/18 0545 24H INTERVAL SUMMARY * Hypoxic respiratory failure currently on high flow supplemental O2 w/BIPAP PRN * No fevers, VSS * 05/29/18 CXR: Calcified atherosclerosis in the aorta. Stable extensive infiltrates in both lungs.Stable diffuse interstitial prominence in both lungs.Hypoinflated lungs. MICRO/OTHER * (-) MRSA Nares * 05/25/18 Urine (-) * 05/23/18 Urine (+)Mixed contaminants * 05/23/18 BCx (-) PHYSICAL EXAMINATION: GENERAL: Afebrile, VSS HEENT: AT, NC, anicteric NECK: Supple, trach midline CHEST: Equal chest rise bilaterally, without dyspnea on observation HEART: Pulse RRR ABDOMEN: Soft / NT EXTREMITIES: Warm, dry SKIN: No rash, no diaphoresis ID ASSESSMENT 82 yo F admit with: 1. Acute hypoxemic respiratory failure, likely ARDS. 2. Pulmonary edema 3. Pneumonia - ASP PNA suspected 4. Mild to moderate aortic stenosis w/preserved LVEF systolic fx 5. Cirrhosis 6. Urinary tract infection (-)MRSA Nares ABX ALLERGIES: KNDA INVASIVES: PIV CURRENT ABX: DAY # #7 => Merrem #6 s/p Levaquin 05/23/18 ID RECOMMENDATIONS/PLAN: 1. Continue current ABX -- and supportive care . Consultation Date/Type/Reason Admit Date/Time May 23, 2018 at 14:40 Initial Consult Date Requesting Provider: GURMEET CAMPOS MD Date/Time of Note DATE: 05/29/18 TIME: 12:07 Exam/Review of Systems Exam Vitals Vital Signs Date Temp Pulse Resp B/P (MAP) Pulse Ox O2 O2 Flow FiO2 Time Delivery Rate 05/29/18 59 22 127/45 91 High Flow 10:30 (72) 05/29/18 100 09:38 05/29/18 97.6 08:00 05/27/18 15.0 08:00 Intake and Output 05/28/18 05/28/18 05/29/18 1515:00 23:00 07:00 IntakeIntake Total 540 ml 60 ml 0 ml OutputOutput Total 700 ml 840 ml 335 ml BalanceBalance -160 ml -780 ml -335 ml Results Result Diagram: 05/29/18 0545 05/29/18 0545 Results 24hrs Laboratory Tests Test 05/29/18 05:45 05/29/18 07:00 White Blood Count 8.0 # Red Blood Count 3.87 L Hemoglobin 13.7 Hematocrit 42.1 Mean Corpuscular Volume 108.8 H Mean Corpuscular Hemoglobin 35.4 H Mean Corpuscular Hemoglobin Concent 32.5 Red Cell Distribution Width 15.6 H Platelet Count 58 L Mean Platelet Volume 12.3 H Immature Granulocytes % 0.500 H Neutrophils % 87.8 H Lymphocytes % 5.1 L Monocytes % 6.3 Eosinophils % 0.0 Basophils % 0.3 Nucleated Red Blood Cells % 0.0 Immature Granulocytes # 0.040 H Neutrophils # 7.0 Lymphocytes # 0.4 L Monocytes # 0.5 Eosinophils # 0.0 Basophils # 0.0 Nucleated Red Blood Cells # 0.0 Sodium Level 147 H Potassium Level 3.3 L Chloride Level 94 L Carbon Dioxide Level 45 *H Anion Gap 8 Blood Urea Nitrogen 34 H Creatinine 0.71 Est Glomerular Filtrat Rate mL/min Glucose Level 154 Calcium Level 8.1 L Blood Gas Specimen Source Blood arterial Arterial Blood Date Drawn 05/29/2018 8:20:38 AM Arterial Blood pH (Temp corrected) 7.490 H Arterial Blood pCO2 (Temp correct) 52.5 H Arterial Blood pO2 (Temp corrected) 73.3 L Arterial Blood HCO3 39.1 H Arterial Blood Base Excess 13.4 H Arterial Blood Oxygen Saturation 94.5 L Randy Test ACCEPTAB Arterial Blood Gas Puncture Site Right Brachial Arterial Blood Carboxyhemoglobin 0.6 Arterial Blood Methemoglobin 0.3 Blood Gas A-a O2 Differential 587.2 H Oxyhemoglobin Percent 93.6 Blood Gas Temperature 37.0 Blood Gas Respiration Rate 14.0 Blood Gas Modality MASK - BIPAP FiO2 100.0 Blood Gas IPAP/EPAP Ratio 15/5 Blood Gas Notified Antonino RAJAN RCP Blood Gas Notified Time 05/29/2018 8:35:49 AM Medications Medication Current Medications IV Flush (NS 3 ml) 3 ml PER PROTOCOL IV ; Start 05/23/18 at 16:00 Ondansetron HCl (Zofran Inj) 4 mg Q6H PRN IV NAUSEA/VOMITING; Start 05/23/18 at 16:00 Acetaminophen (Tylenol Tab) 650 mg Q6H PRN PO .PAIN 1-3 OR TEMP; Start 05/23/18 at 16:00 Enoxaparin Sodium (Lovenox) 30 mg DAILY SC Last administered on 05/28/18 08:32; Admin Dose 30 MG; Start 05/24/18 at 09:00 Albuterol (Ventolin Hfa) 2 puff Q4H PRN INH WHEEZING AND SOB; Start 05/23/18 at 21:00 Levothyroxine Sodium (Synthroid) 125 mcg BEFORE BREAKFAST PO Last administered on 05/29/18 08:40; Admin Dose 125 MCG; Start 05/24/18 at 07:00 Meropenem/Sodium Chloride 50 ml @ 100 mls/hr Q12 IVPB Last administered on 05/29/18 08:40; Admin Dose 100 MLS/HR; Start 05/24/18 at 15:30 Morphine Sulfate (morphine) 6 mg Q4H PRN PO SEVERE PAIN LEVEL 7-10; Start 05/24/18 at 23:00 Methylprednisolone Sodium Succinate (Solu-Medrol) 40 mg Q6 IV Last administered on 05/29/18 06:23; Admin Dose 40 MG; Start 05/25/18 at 12:00 Furosemide (Lasix) 40 mg BID DIURETICS IV Last administered on 05/29/18 06:23; Admin Dose 40 MG; Start 05/26/18 at 18:00 Famotidine (Pepcid Iv) 20 mg DAILY IV Last administered on 05/29/18 09:00; Admin Dose 20 MG; Start 05/28/18 at 09:00 Potassium Chloride 100 ml @ 50 mls/hr Q2H IVPB Last administered on 05/29/18 11:31; Admin Dose 50 MLS/HR; Start 05/29/18 at 11:00; Stop 05/29/18 at 14:59 CHELITA RADFORD NP May 29, 2018 12:07
--- NOTE | 2018-05-29 13:45 | CONS ---
Consult Date/Type/Reason Admit Date/Time May 23, 2018 at 14:40 Initial Consult Date Requesting Provider: GURMEET CAMPOS MD Date/Time of Note DATE: 05/29/18 TIME: 13:44 Subjective NO acute events - pt sleepy - desaturates at times - high Co2 - pulmonary team follows. NO CP now. ROS: No fever, no chills, no nausea, no vomiting, no diarrhea/constipation No recent weight changes No chest pain, no PND, no orthopnea - mild SOB, fatigue No dizziness, blurred vision No thirst, no heat or cold intolerance Objective Vitals Vital Signs Date Temp Pulse Resp B/P (MAP) Pulse Ox O2 O2 Flow FiO2 Time Delivery Rate 05/29/18 59 22 127/45 91 High Flow 10:30 (72) 05/29/18 100 09:38 05/29/18 97.6 08:00 05/27/18 15.0 08:00 Intake and Output 05/28/18 05/28/18 05/29/18 1515:00 23:00 07:00 IntakeIntake Total 540 ml 60 ml 0 ml OutputOutput Total 700 ml 840 ml 335 ml BalanceBalance -160 ml -780 ml -335 ml Exam General: WN/WD/NAD, AOx 1-2 Tamazight HEENT: Unicetric/atraumatic/EOMI (does not follow commands) NECK: JVD elevated, no thyromegaly Lymph: no lymphadenopathy HEART: regular with no S3, II/ systolic murmur at apex, PMI L LUNGS: Coarse sounds ABD: soft, NT, ND, +BS : Intact Neuro: non focal SKIN: chronic changes EXT: trace edema Results/Medications Result Diagram: 05/29/18 0545 05/29/18 0545 Results 24 hrs Laboratory Tests Test 05/29/18 05:45 05/29/18 07:00 White Blood Count 8.0 # Red Blood Count 3.87 L Hemoglobin 13.7 Hematocrit 42.1 Mean Corpuscular Volume 108.8 H Mean Corpuscular Hemoglobin 35.4 H Mean Corpuscular Hemoglobin Concent 32.5 Red Cell Distribution Width 15.6 H Platelet Count 58 L Mean Platelet Volume 12.3 H Immature Granulocytes % 0.500 H Neutrophils % 87.8 H Lymphocytes % 5.1 L Monocytes % 6.3 Eosinophils % 0.0 Basophils % 0.3 Nucleated Red Blood Cells % 0.0 Immature Granulocytes # 0.040 H Neutrophils # 7.0 Lymphocytes # 0.4 L Monocytes # 0.5 Eosinophils # 0.0 Basophils # 0.0 Nucleated Red Blood Cells # 0.0 Sodium Level 147 H Potassium Level 3.3 L Chloride Level 94 L Carbon Dioxide Level 45 *H Anion Gap 8 Blood Urea Nitrogen 34 H Creatinine 0.71 Est Glomerular Filtrat Rate mL/min Glucose Level 154 Calcium Level 8.1 L Blood Gas Specimen Source Blood arterial Arterial Blood Date Drawn 05/29/2018 8:20:38 AM Arterial Blood pH (Temp corrected) 7.490 H Arterial Blood pCO2 (Temp correct) 52.5 H Arterial Blood pO2 (Temp corrected) 73.3 L Arterial Blood HCO3 39.1 H Arterial Blood Base Excess 13.4 H Arterial Blood Oxygen Saturation 94.5 L Rnady Test ACCEPTAB Arterial Blood Gas Puncture Site Right Brachial Arterial Blood Carboxyhemoglobin 0.6 Arterial Blood Methemoglobin 0.3 Blood Gas A-a O2 Differential 587.2 H Oxyhemoglobin Percent 93.6 Blood Gas Temperature 37.0 Blood Gas Respiration Rate 14.0 Blood Gas Modality MASK - BIPAP FiO2 100.0 Blood Gas IPAP/EPAP Ratio 15/ Blood Gas Notified Whom Kelsey RAJAN EMAIL CAMPAIGN MANAGER Blood Gas Notified Time 05/29/2018 8:35:49 AM Home Meds Active Scripts Albuterol Sulfate* (Proair HFA*) 8.5 Gm Hfa.aer.ad, 2 PUFF INH Q4H PRN for WHEEZING AND SOB, #1 INHALER Prov:NATI DREW MD 05/18/18 Acetaminophen* (Tylenol*) 325 Mg Tablet, 2 TAB PO Q8 PRN for PAIN AND OR ELEVATED TEMP, #20 TAB Prov:NATI DREW MD 05/18/18 Levofloxacin* (Levaquin*) 750 Mg Tablet, 750 MG PO DAILY for 7 Days, TAB Prov:NATI DREW MD 05/18/18 Pantoprazole* (Protonix*) 40 Mg Tablet.dr, 40 MG PO DAILY for 60 Days, TAB Prov:ZAKIYA WERNER 12/23/17 Levothyroxine Sodium* (Levothyroxine Sodium*) 125 Mcg Tablet, 125 MCG PO BEFORE BREAKFAST, #60 TAB Prov:ZAKIYA WERNER 12/23/17 Reported Medications Acetaminophen (MAPAP) 325 Mg Tablet, 325 MG PO, TAB 05/23/18 Ranitidine Hcl* (Ranitidine Hcl*) 75 Mg Tablet, 75 MG PO BID PRN for HEARTBURN, #60 TAB 05/23/18 Discontinued Reported Medications Ibuprofen* (Advil*) 200 Mg Capsule, 200 MG PO Q6H PRN for PAIN, CAP 12/15/17 Discontinued Scripts Inhaler, Assist Devices (Compact Space Chamber) 1 Each Spacer, EACH MC Q4H WHILE AWAKE PRN for COUGH, #1 Prov:NATI DREW MD 05/18/18 Medications Current Medications IV Flush (NS 3 ml) 3 ml PER PROTOCOL IV ; Start 05/23/18 at 16:00 Ondansetron HCl (Zofran Inj) 4 mg Q6H PRN IV NAUSEA/VOMITING; Start 05/23/18 at 16:00 Acetaminophen (Tylenol Tab) 650 mg Q6H PRN PO .PAIN 1-3 OR TEMP; Start 05/23/18 at 16:00 Enoxaparin Sodium (Lovenox) 30 mg DAILY SC Last administered on 05/28/18at 08:32; Admin Dose 30 MG; Start 05/24/18 at 09:00 Albuterol (Ventolin Hfa) 2 puff Q4H PRN INH WHEEZING AND SOB; Start 05/23/18 at 21:00 Levothyroxine Sodium (Synthroid) 125 mcg BEFORE BREAKFAST PO Last administered on 05/29/18at 08:40; Admin Dose 125 MCG; Start 05/24/18 at 07:00 Meropenem/Sodium Chloride 50 ml @ 100 mls/hr Q12 IVPB Last administered on 05/29/18at 08:40; Admin Dose 100 MLS/HR; Start 05/24/18 at 15:30 Morphine Sulfate (morphine) 6 mg Q4H PRN PO SEVERE PAIN LEVEL 7-10; Start 05/24/18 at 23:00 Methylprednisolone Sodium Succinate (Solu-Medrol) 40 mg Q6 IV Last administered on 05/29/18at 12:53; Admin Dose 40 MG; Start 05/25/18 at 12:00 Furosemide (Lasix) 40 mg BID DIURETICS IV Last administered on 05/29/18at 06:23; Admin Dose 40 MG; Start 05/26/18 at 18:00 Famotidine (Pepcid Iv) 20 mg DAILY IV Last administered on 05/29/18at 09:00; Admin Dose 20 MG; Start 05/28/18 at 09:00 Potassium Chloride 100 ml @ 50 mls/hr Q2H IVPB Last administered on 05/29/18at 12:53; Admin Dose 50 MLS/HR; Start 05/29/18 at 11:00; Stop 05/29/18 at 14:59 Assessment/Plan Hospital Course (Demo Recall) 1. Congestive heart failure exacerbation with an echo from 2016 - preserved EF and had a mild to moderate aortic stenosis. Thus, possibly diastolic, acute on chronic. Better now, stable urine output. 2. Shortness of breath secondary to #1 - improved with Rx. 3. Tachycardia on admit. Sinus tachycardia, now improved.Rate controlled now. 4. Hypothyroidism - replace as needed. 5. Cirrhosis - avoid hepatotoxic meds. 6. Leukocytosis. 7. Anemia and thrombocytopenia - no active bleeding noted. 8. Coagulopathy. MACKENZIE LOPEZ MD May 29, 2018 13:45
--- NOTE | 2018-05-29 16:18 | PN ---
Date/Time of Note Date/Time of Note DATE: 05/29/18 TIME: 16:17 Assessment/Plan VTE Prophylaxis Risk score (from Ns)>0 risk: 12 SCD applied (from Ns): Yes Lines/Catheters IV Catheter Type (from Nrs): Peripheral IV Urinary Cath still in place: Yes Assessment/Plan Assessment/Plan Hypokalemia --Septic shock. Continue antibiotics per ID. Dr. Akins is following in infection disease consultation. -Community-acquired pneumonia -Acute hypoxemic respiratory failure. Dr. Lepe is following in pulmonology consultation. -CHF exacerbation. Continue Lasix monitor electrolytes. Dr. Alford is following in cardiology consultation. -Hypothyroidism, continue levothyroxine. -Liver cirrhosis Total critical care time spent 35 mins.Further recommendations based on clinical course. Plan of care discussed with Dr. Santiago. Result Diagram: 05/29/18 0545 05/29/18 0545 Results 24hrs Laboratory Tests Test 05/29/18 05:45 05/29/18 07:00 White Blood Count 8.0 # Red Blood Count 3.87 L Hemoglobin 13.7 Hematocrit 42.1 Mean Corpuscular Volume 108.8 H Mean Corpuscular Hemoglobin 35.4 H Mean Corpuscular Hemoglobin Concent 32.5 Red Cell Distribution Width 15.6 H Platelet Count 58 L Mean Platelet Volume 12.3 H Immature Granulocytes % 0.500 H Neutrophils % 87.8 H Lymphocytes % 5.1 L Monocytes % 6.3 Eosinophils % 0.0 Basophils % 0.3 Nucleated Red Blood Cells % 0.0 Immature Granulocytes # 0.040 H Neutrophils # 7.0 Lymphocytes # 0.4 L Monocytes # 0.5 Eosinophils # 0.0 Basophils # 0.0 Nucleated Red Blood Cells # 0.0 Sodium Level 147 H Potassium Level 3.3 L Chloride Level 94 L Carbon Dioxide Level 45 *H Anion Gap 8 Blood Urea Nitrogen 34 H Creatinine 0.71 Est Glomerular Filtrat Rate mL/min Glucose Level 154 Calcium Level 8.1 L Blood Gas Specimen Source Blood arterial Arterial Blood Date Drawn 05/29/2018 8:20:38 AM Arterial Blood pH (Temp corrected) 7.490 H Arterial Blood pCO2 (Temp correct) 52.5 H Arterial Blood pO2 (Temp corrected) 73.3 L Arterial Blood HCO3 39.1 H Arterial Blood Base Excess 13.4 H Arterial Blood Oxygen Saturation 94.5 L Radny Test ACCEPTAB Arterial Blood Gas Puncture Site Right Brachial Arterial Blood Carboxyhemoglobin 0.6 Arterial Blood Methemoglobin 0.3 Blood Gas A-a O2 Differential 587.2 H Oxyhemoglobin Percent 93.6 Blood Gas Temperature 37.0 Blood Gas Respiration Rate 14.0 Blood Gas Modality MASK - BIPAP FiO2 100.0 Blood Gas IPAP/EPAP Ratio 15/5 Blood Gas Notified Whom Kelsey RAJAN AUDIO VISUAL PRODUCTION SPECIALIST Blood Gas Notified Time 05/29/2018 8:35:49 AM Exam/Review of Systems Exam Vitals Vital Signs Date Temp Pulse Resp B/P (MAP) Pulse Ox O2 O2 Flow FiO2 Time Delivery Rate 05/29/18 61 30 133/41 91 High Flow 15:00 (71) 05/29/18 98.0 12:00 05/29/18 100 09:38 05/27/18 15.0 08:00 Intake and Output 05/28/18 05/28/18 05/29/18 1515:00 23:00 07:00 IntakeIntake Total 540 ml 60 ml 0 ml OutputOutput Total 700 ml 840 ml 385 ml BalanceBalance -160 ml -780 ml -385 ml Constitutional: alert Results Results 24hrs Laboratory Tests Test 05/29/18 05:45 05/29/18 07:00 White Blood Count 8.0 # Red Blood Count 3.87 L Hemoglobin 13.7 Hematocrit 42.1 Mean Corpuscular Volume 108.8 H Mean Corpuscular Hemoglobin 35.4 H Mean Corpuscular Hemoglobin Concent 32.5 Red Cell Distribution Width 15.6 H Platelet Count 58 L Mean Platelet Volume 12.3 H Immature Granulocytes % 0.500 H Neutrophils % 87.8 H Lymphocytes % 5.1 L Monocytes % 6.3 Eosinophils % 0.0 Basophils % 0.3 Nucleated Red Blood Cells % 0.0 Immature Granulocytes # 0.040 H Neutrophils # 7.0 Lymphocytes # 0.4 L Monocytes # 0.5 Eosinophils # 0.0 Basophils # 0.0 Nucleated Red Blood Cells # 0.0 Sodium Level 147 H Potassium Level 3.3 L Chloride Level 94 L Carbon Dioxide Level 45 *H Anion Gap 8 Blood Urea Nitrogen 34 H Creatinine 0.71 Est Glomerular Filtrat Rate mL/min Glucose Level 154 Calcium Level 8.1 L Blood Gas Specimen Source Blood arterial Arterial Blood Date Drawn 05/29/2018 8:20:38 AM Arterial Blood pH (Temp corrected) 7.490 H Arterial Blood pCO2 (Temp correct) 52.5 H Arterial Blood pO2 (Temp corrected) 73.3 L Arterial Blood HCO3 39.1 H Arterial Blood Base Excess 13.4 H Arterial Blood Oxygen Saturation 94.5 L Randy Test ACCEPTAB Arterial Blood Gas Puncture Site Right Brachial Arterial Blood Carboxyhemoglobin 0.6 Arterial Blood Methemoglobin 0.3 Blood Gas A-a O2 Differential 587.2 H Oxyhemoglobin Percent 93.6 Blood Gas Temperature 37.0 Blood Gas Respiration Rate 14.0 Blood Gas Modality MASK - BIPAP FiO2 100.0 Blood Gas IPAP/EPAP Ratio 25/08 Blood Gas Notified Whom Kelsey RAJAN AUDIO VISUAL PRODUCTION SPECIALIST Blood Gas Notified Time 05/29/2018 8:35:49 AM Medications Medication Current Medications IV Flush (NS 3 ml) 3 ml PER PROTOCOL IV ; Start 05/23/18 at 16:00 Ondansetron HCl (Zofran Inj) 4 mg Q6H PRN IV NAUSEA/VOMITING; Start 05/23/18 at 16:00 Acetaminophen (Tylenol Tab) 650 mg Q6H PRN PO .PAIN 1-3 OR TEMP; Start 05/23/18 at 16:00 Enoxaparin Sodium (Lovenox) 30 mg DAILY SC Last administered on 05/28/18at 08:32; Admin Dose 30 MG; Start 05/24/18 at 09:00; Status Hold Albuterol (Ventolin Hfa) 2 puff Q4H PRN INH WHEEZING AND SOB; Start 05/23/18 at 21:00 Levothyroxine Sodium (Synthroid) 125 mcg BEFORE BREAKFAST PO Last administered on 05/29/18at 08:40; Admin Dose 125 MCG; Start 05/24/18 at 07:00 Meropenem/Sodium Chloride 50 ml @ 100 mls/hr Q12 IVPB Last administered on 05/29/18at 08:40; Admin Dose 100 MLS/HR; Start 05/24/18 at 15:30 Morphine Sulfate (morphine) 6 mg Q4H PRN PO SEVERE PAIN LEVEL 7-10; Start 05/24/18 at 23:00 Methylprednisolone Sodium Succinate (Solu-Medrol) 40 mg Q6 IV Last administered on 05/29/18at 12:53; Admin Dose 40 MG; Start 05/25/18 at 12:00 Furosemide (Lasix) 40 mg BID DIURETICS IV Last administered on 05/29/18at 06:23; Admin Dose 40 MG; Start 05/26/18 at 18:00 Famotidine (Pepcid Iv) 20 mg DAILY IV Last administered on 05/29/18at 09:00; Admin Dose 20 MG; Start 05/28/18 at 09:00 TERRA LI May 29, 2018 16:18
[2018-05-30] VITALS (34 sets, daily range): BP systolic 104–162; BP diastolic 40–65; PULSE 54–88; RESP 16–30
[2018-05-30] MEDS: METHYLPREDNISOLONE 40 MG INJ IV SCH ×5 (00:22→23:35)
[2018-05-30] MEDS: LEVOTHYROXINE 125 MCG TAB PO SCH (05:39)
[2018-05-30] MEDS: FUROSEMIDE 40 MG INJ IV SCH ×2 (05:39→18:34)
[2018-05-30] MEDS: MEROPENEM 1 GM/50ML(PMX) 50 ML IVPB SCH ×2 (09:23→20:19)
[2018-05-30] MEDS: FAMOTIDINE 20 MG INJ IV SCH (09:29)
--- NOTE | 2018-05-30 10:14 | CONS ---
Consult Date/Type/Reason Admit Date/Time May 23, 2018 at 14:40 Initial Consult Date Type of Consult Pulmonary Requesting Provider: GURMEET CAMPOS MD Date/Time of Note DATE: 05/30/18 TIME: 10:13 Subjective Patient remains dependent on high flow 100% with 35 L/min. Family at bedside including patient's granddaughter who is an ICU nurse. They states she is requesting comfort measures. Objective Vital Signs Date Temp Pulse Resp B/P (MAP) Pulse Ox O2 O2 Flow FiO2 Time Delivery Rate 05/30/18 57 08:00 05/30/18 96 100 07:14 05/30/18 20 158/54 BIPAP 07:00 (88) 05/30/18 97.4 03:30 05/27/18 15.0 08:00 Intake and Output 05/29/18 05/29/18 05/30/18 1515:00 23:00 07:00 IntakeIntake Total 400 ml 50 ml OutputOutput Total 440 ml 1260 ml 260 ml BalanceBalance -40 ml -1210 ml -260 ml Exam GENERAL: Frail elderly lady on high flow O2 VITAL SIGNS: per chart NECK: Supple. No JVD or lymphadenopathy. CARDIAC EXAM: S1, S2. No added sounds or murmurs. CHEST: Diminished air entry bilaterally with rales ABDOMEN: Soft, nontender. No guarding or rebound. EXTREMITIES: No cyanosis, clubbing or edema. NEUROLOGIC: Generalized weakness. No focal deficits. Vent Setting Fraction of Inspired Oxygen pe: 100 Results/Medications Result Diagram: 05/30/18 0426 05/30/18 0426 Results 24 hrs Laboratory Tests Test 05/30/18 04:26 White Blood Count 7.2 Red Blood Count 4.15 L Hemoglobin 14.6 Hematocrit 45.3 Mean Corpuscular Volume 109.2 H Mean Corpuscular Hemoglobin 35.2 H Mean Corpuscular Hemoglobin Concent 32.2 Red Cell Distribution Width 16.0 H Platelet Count 48 L Mean Platelet Volume 12.5 H Immature Granulocytes % 0.400 Neutrophils % 89.3 H Segmented Neutrophils % (Manual) 91 H Band Neutrophils % (Manual) 6 H Lymphocytes % 4.8 L Lymphocytes % (Manual) 1 L Monocytes % 5.4 Eosinophils % 0.0 Basophils % 0.1 Basophils % (Manual) 2 Nucleated Red Blood Cells % 0.0 Immature Granulocytes # 0.030 Neutrophils # 6.4 Neutrophils # (Manual) 6.6 Band Neutrophils # 0.4 Lymphocytes (Manual) 0.0 L Lymphocytes # 0.4 L Monocytes # 0.4 Eosinophils # 0.0 Basophils # 0.0 Basophils # (Manual) 0.1 H Nucleated Red Blood Cells # 0.0 Platelet Estimate SIG DECREASED Poikilocytosis 1+ Anisocytosis 2+ Macrocytosis 2+ Sodium Level 150 H Potassium Level 3.7 Chloride Level 98 Carbon Dioxide Level 47 *H Anion Gap 5 Blood Urea Nitrogen 35 H Creatinine 0.68 Est Glomerular Filtrat Rate mL/min Glucose Level 152 Calcium Level 8.2 L Medications Current Medications IV Flush (NS 3 ml) 3 ml PER PROTOCOL IV ; Start 05/23/18 at 16:00 Ondansetron HCl (Zofran Inj) 4 mg Q6H PRN IV NAUSEA/VOMITING; Start 05/23/18 at 16:00 Acetaminophen (Tylenol Tab) 650 mg Q6H PRN PO .PAIN 1-3 OR TEMP; Start 05/23/18 at 16:00 Enoxaparin Sodium (Lovenox) 30 mg DAILY SC Last administered on 05/28/18at 08:32; Admin Dose 30 MG; Start 05/24/18 at 09:00; Status Hold Albuterol (Ventolin Hfa) 2 puff Q4H PRN INH WHEEZING AND SOB; Start 05/23/18 at 21:00 Levothyroxine Sodium (Synthroid) 125 mcg BEFORE BREAKFAST PO Last administered on 05/29/18at 08:40; Admin Dose 125 MCG; Start 05/24/18 at 07:00 Meropenem/Sodium Chloride 50 ml @ 100 mls/hr Q12 IVPB Last administered on 05/30/18at 09:23; Admin Dose 100 MLS/HR; Start 05/24/18 at 15:30 Morphine Sulfate (morphine) 6 mg Q4H PRN PO SEVERE PAIN LEVEL 7-10; Start 05/24/18 at 23:00 Methylprednisolone Sodium Succinate (Solu-Medrol) 40 mg Q6 IV Last administered on 05/30/18at 05:39; Admin Dose 40 MG; Start 05/25/18 at 12:00 Furosemide (Lasix) 40 mg BID DIURETICS IV Last administered on 05/30/18at 05:39; Admin Dose 40 MG; Start 05/26/18 at 18:00 Famotidine (Pepcid Iv) 20 mg DAILY IV Last administered on 05/30/18at 09:29; Admin Dose 20 MG; Start 05/28/18 at 09:00 Assessment/Plan Hospital Course (Demo Recall) IMPRESSION: 1. Acute hypoxemic respiratory failure, likely ARDS. Possible aspiration pneumonia. 2. Patient is likely euvolemic at present. 3. Preserved ejection fraction with mild to moderate aortic stenosis RECOMMENDATIONS: 1. Aspiration precautions 2. Diuretics. 3. Supplemental O2. 4. Antibiotics and steroids 5. DVT and GI prophylaxis. We reviewed her x-rays together and discussed the diagnosis of ARDS and possible impending respiratory failure requiring intubation and mechanical ventilation. Discussed with family and patient's granddaughter who is an ICU nurse at length at bedside. Patient's family requesting hospice evaluation. Primary informed Critical care time 40 minutes. MARIA GUADALUPE PAUL MD, [facility] May 30, 2018 10:14
--- NOTE | 2018-05-30 10:15 | CONS ---
Assessment/Plan Assessment/Plan Hospital Course (Demo Recall) ID PROGRESS NOTE CURRENT ABX: DAY #8 => Merrem #7 s/p Levaquin 05/23/18 05/30/18 0426 05/30/18 0426 24H INTERVAL SUMMARY * Awake, alert responsive w/hypoxic respiratory failure currently on high flow supplemental O2 w/BIPAP PRN * No fevers, VSS, generalized weakness noted * 05/29/18 CXR: Calcified atherosclerosis in the aorta. Stable extensive infiltrates in both lungs.Stable diffuse interstitial prominence in both lungs.Hypoinflated lungs. MICRO/OTHER * (-) MRSA Nares * 05/25/18 Urine (-) * 05/23/18 Urine (+)Mixed contaminants * 05/23/18 BCx (-) PHYSICAL EXAMINATION: GENERAL: Afebrile, VSS HEENT: AT, NC, anicteric NECK: Supple, trach midline CHEST: Equal chest rise bilaterally, without dyspnea on observation HEART: Pulse RRR ABDOMEN: Soft / NT EXTREMITIES: Warm, dry SKIN: No rash, no diaphoresis ID ASSESSMENT 82 yo F admit with: 1. Acute hypoxemic respiratory failure - BIPAP PRN 2. Pulmonary edema 3. Pneumonia - ASP PNA suspected 4. Mild to moderate aortic stenosis w/preserved LVEF systolic fx 5. Cirrhosis 6. Urinary tract infection => RESOLVED (-)MRSA Nares ABX ALLERGIES: KNDA INVASIVES: PIV CURRENT ABX: DAY #8 => Merrem #7 s/p Levaquin 05/23/18 ID RECOMMENDATIONS/PLAN: 1. Lets continue ABX today and consider DC ABX on Thursday . Consultation Date/Type/Reason Admit Date/Time May 23, 2018 at 14:40 Initial Consult Date Requesting Provider: GURMEET CAMPOS MD Date/Time of Note DATE: 05/30/18 TIME: 10:11 Exam/Review of Systems Exam Vitals Vital Signs Date Temp Pulse Resp B/P (MAP) Pulse Ox O2 O2 Flow FiO2 Time Delivery Rate 05/30/18 57 08:00 05/30/18 96 100 07:14 05/30/18 20 158/54 BIPAP 07:00 (88) 05/30/18 97.4 03:30 05/27/18 15.0 08:00 Intake and Output 05/29/18 05/29/18 05/30/18 1414:59 22:59 06:59 IntakeIntake Total 350 ml 100 ml OutputOutput Total 430 ml 1270 ml 310 ml BalanceBalance -80 ml -1170 ml -310 ml Results Result Diagram: 05/30/186 05/30/18 0426 Results 24hrs Laboratory Tests Test 05/30/18 04:26 White Blood Count 7.2 Red Blood Count 4.15 L Hemoglobin 14.6 Hematocrit 45.3 Mean Corpuscular Volume 109.2 H Mean Corpuscular Hemoglobin 35.2 H Mean Corpuscular Hemoglobin Concent 32.2 Red Cell Distribution Width 16.0 H Platelet Count 48 L Mean Platelet Volume 12.5 H Immature Granulocytes % 0.400 Neutrophils % 89.3 H Segmented Neutrophils % (Manual) 91 H Band Neutrophils % (Manual) 6 H Lymphocytes % 4.8 L Lymphocytes % (Manual) 1 L Monocytes % 5.4 Eosinophils % 0.0 Basophils % 0.1 Basophils % (Manual) 2 Nucleated Red Blood Cells % 0.0 Immature Granulocytes # 0.030 Neutrophils # 6.4 Neutrophils # (Manual) 6.6 Band Neutrophils # 0.4 Lymphocytes (Manual) 0.0 L Lymphocytes # 0.4 L Monocytes # 0.4 Eosinophils # 0.0 Basophils # 0.0 Basophils # (Manual) 0.1 H Nucleated Red Blood Cells # 0.0 Platelet Estimate SIG DECREASED Poikilocytosis 1+ Anisocytosis 2+ Macrocytosis 2+ Sodium Level 150 H Potassium Level 3.7 Chloride Level 98 Carbon Dioxide Level 47 *H Anion Gap 5 Blood Urea Nitrogen 35 H Creatinine 0.68 Est Glomerular Filtrat Rate mL/min Glucose Level 152 Calcium Level 8.2 L Medications Medication Current Medications IV Flush (NS 3 ml) 3 ml PER PROTOCOL IV ; Start 05/23/18 at 16:00 Ondansetron HCl (Zofran Inj) 4 mg Q6H PRN IV NAUSEA/VOMITING; Start 05/23/18 at 16:00 Acetaminophen (Tylenol Tab) 650 mg Q6H PRN PO .PAIN 1-3 OR TEMP; Start 05/23/18 at 16:00 Enoxaparin Sodium (Lovenox) 30 mg DAILY SC Last administered on 05/28/18at 08:32; Admin Dose 30 MG; Start 05/24/18 at 09:00; Status Hold Albuterol (Ventolin Hfa) 2 puff Q4H PRN INH WHEEZING AND SOB; Start 05/23/18 at 21:00 Levothyroxine Sodium (Synthroid) 125 mcg BEFORE BREAKFAST PO Last administered on 05/29/18 08:40; Admin Dose 125 MCG; Start 05/24/18 at 07:00 Meropenem/Sodium Chloride 50 ml @ 100 mls/hr Q12 IVPB Last administered on 05/30/18 09:23; Admin Dose 100 MLS/HR; Start 05/24/18 at 15:30 Morphine Sulfate (morphine) 6 mg Q4H PRN PO SEVERE PAIN LEVEL 7-10; Start 05/24/18 at 23:00 Methylprednisolone Sodium Succinate (Solu-Medrol) 40 mg Q6 IV Last administered on 05/30/18 05:39; Admin Dose 40 MG; Start 05/25/18 at 12:00 Furosemide (Lasix) 40 mg BID DIURETICS IV Last administered on 05/30/18 05:39; Admin Dose 40 MG; Start 05/26/18 at 18:00 Famotidine (Pepcid Iv) 20 mg DAILY IV Last administered on 05/30/18 09:29; Admin Dose 20 MG; Start 05/28/18 at 09:00 CHELITA RADFORD NP May 30, 2018 10:15
--- NOTE | 2018-05-30 11:13 | PN ---
Date/Time of Note Date/Time of Note DATE: 05/30/18 TIME: 11:12 Assessment/Plan VTE Prophylaxis Risk score (from Ns)>0 risk: 12 SCD applied (from Ns): Yes Lines/Catheters IV Catheter Type (from Nrs): Peripheral IV Urinary Cath still in place: Yes Assessment/Plan Assessment/Plan Hypokalemia- resolved --Septic shock. Continue antibiotics per ID. Dr. Akins is following in infection disease consultation. -Community-acquired pneumonia -Acute hypoxemic respiratory failure. Dr. Lepe is following in pulmonology consultation. -CHF exacerbation. Continue Lasix monitor electrolytes. Dr. Alford is fol lowing in cardiology consultation. -Hypothyroidism, continue levothyroxine. -Liver cirrhosis -Hypernatremia Total critical care time spent 35 mins.Further recommendations based on clinical course. Plan of care discussed with Dr. Santiago. Result Diagram: 05/30/18 0426 05/30/18 0426 Results 24hrs Laboratory Tests Test 05/30/18 04:26 White Blood Count 7.2 Red Blood Count 4.15 L Hemoglobin 14.6 Hematocrit 45.3 Mean Corpuscular Volume 109.2 H Mean Corpuscular Hemoglobin 35.2 H Mean Corpuscular Hemoglobin Concent 32.2 Red Cell Distribution Width 16.0 H Platelet Count 48 L Mean Platelet Volume 12.5 H Immature Granulocytes % 0.400 Neutrophils % 89.3 H Segmented Neutrophils % (Manual) 91 H Band Neutrophils % (Manual) 6 H Lymphocytes % 4.8 L Lymphocytes % (Manual) 1 L Monocytes % 5.4 Eosinophils % 0.0 Basophils % 0.1 Basophils % (Manual) 2 Nucleated Red Blood Cells % 0.0 Immature Granulocytes # 0.030 Neutrophils # 6.4 Neutrophils # (Manual) 6.6 Band Neutrophils # 0.4 Lymphocytes (Manual) 0.0 L Lymphocytes # 0.4 L Monocytes # 0.4 Eosinophils # 0.0 Basophils # 0.0 Basophils # (Manual) 0.1 H Nucleated Red Blood Cells # 0.0 Platelet Estimate SIG DECREASED Poikilocytosis 1+ Anisocytosis 2+ Macrocytosis 2+ Sodium Level 150 H Potassium Level 3.7 Chloride Level 98 Carbon Dioxide Level 47 *H Anion Gap 5 Blood Urea Nitrogen 35 H Creatinine 0.68 Est Glomerular Filtrat Rate mL/min Glucose Level 152 Calcium Level 8.2 L Exam/Review of Systems Exam Vitals Vital Signs Date Temp Pulse Resp B/P (MAP) Pulse Ox O2 O2 Flow FiO2 Time Delivery Rate 05/30/18 57 08:00 05/30/18 96 100 07:14 05/30/18 20 158/54 BIPAP 07:00 (88) 05/30/18 97.4 03:30 05/27/18 15.0 08:00 Intake and Output 05/29/18 05/29/18 05/30/18 1414:59 22:59 06:59 IntakeIntake Total 350 ml 100 ml OutputOutput Total 430 ml 1270 ml 310 ml BalanceBalance -80 ml -1170 ml -310 ml Results Results 24hrs Laboratory Tests Test 05/30/18 04:26 White Blood Count 7.2 Red Blood Count 4.15 L Hemoglobin 14.6 Hematocrit 45.3 Mean Corpuscular Volume 109.2 H Mean Corpuscular Hemoglobin 35.2 H Mean Corpuscular Hemoglobin Concent 32.2 Red Cell Distribution Width 16.0 H Platelet Count 48 L Mean Platelet Volume 12.5 H Immature Granulocytes % 0.400 Neutrophils % 89.3 H Segmented Neutrophils % (Manual) 91 H Band Neutrophils % (Manual) 6 H Lymphocytes % 4.8 L Lymphocytes % (Manual) 1 L Monocytes % 5.4 Eosinophils % 0.0 Basophils % 0.1 Basophils % (Manual) 2 Nucleated Red Blood Cells % 0.0 Immature Granulocytes # 0.030 Neutrophils # 6.4 Neutrophils # (Manual) 6.6 Band Neutrophils # 0.4 Lymphocytes (Manual) 0.0 L Lymphocytes # 0.4 L Monocytes # 0.4 Eosinophils # 0.0 Basophils # 0.0 Basophils # (Manual) 0.1 H Nucleated Red Blood Cells # 0.0 Platelet Estimate SIG DECREASED Poikilocytosis 1+ Anisocytosis 2+ Macrocytosis 2+ Sodium Level 150 H Potassium Level 3.7 Chloride Level 98 Carbon Dioxide Level 47 *H Anion Gap 5 Blood Urea Nitrogen 35 H Creatinine 0.68 Est Glomerular Filtrat Rate mL/min Glucose Level 152 Calcium Level 8.2 L Medications Medication Current Medications IV Flush (NS 3 ml) 3 ml PER PROTOCOL IV ; Start 05/23/18 at 16:00 Ondansetron HCl (Zofran Inj) 4 mg Q6H PRN IV NAUSEA/VOMITING; Start 05/23/18 at 16:00 Acetaminophen (Tylenol Tab) 650 mg Q6H PRN PO .PAIN 1-3 OR TEMP; Start 05/23/18 at 16:00 Enoxaparin Sodium (Lovenox) 30 mg DAILY SC Last administered on 05/28/18at 08:32; Admin Dose 30 MG; Start 05/24/18 at 09:00; Status Hold Albuterol (Ventolin Hfa) 2 puff Q4H PRN INH WHEEZING AND SOB; Start 05/23/18 at 21:00 Levothyroxine Sodium (Synthroid) 125 mcg BEFORE BREAKFAST PO Last administered on 05/29/18 08:40; Admin Dose 125 MCG; Start 05/24/18 at 07:00 Meropenem/Sodium Chloride 50 ml @ 100 mls/hr Q12 IVPB Last administered on 05/30/18 09:23; Admin Dose 100 MLS/HR; Start 05/24/18 at 15:30 Morphine Sulfate (morphine) 6 mg Q4H PRN PO SEVERE PAIN LEVEL 7-10; Start 05/24/18 at 23:00 Methylprednisolone Sodium Succinate (Solu-Medrol) 40 mg Q6 IV Last administered on 05/30/18 05:39; Admin Dose 40 MG; Start 05/25/18 at 12:00 Furosemide (Lasix) 40 mg BID DIURETICS IV Last administered on 05/30/18 05:39; Admin Dose 40 MG; Start 05/26/18 at 18:00 Famotidine (Pepcid Iv) 20 mg DAILY IV Last administered on 05/30/18 09:29; Admin Dose 20 MG; Start 05/28/18 at 09:00 TERRA LI May 30, 2018 11:13
--- NOTE | 2018-05-30 13:24 | CONS ---
Consult Date/Type/Reason Admit Date/Time May 23, 2018 at 14:40 Initial Consult Date Requesting Provider: GURMEET CAMPOS MD Date/Time of Note DATE: 05/30/18 TIME: 13:23 Subjective Now family at bedside - agreeable to initiate Hospice - care being facilitated - will sign off now. Objective Vitals Vital Signs Date Temp Pulse Resp B/P (MAP) Pulse Ox O2 O2 Flow FiO2 Time Delivery Rate 05/30/18 80 21 104/57 94 High Flow 11:00 (73) 05/30/18 97.5 08:00 05/30/18 100 07:14 05/27/18 15.0 08:00 Intake and Output 05/29/18 05/29/18 05/30/18 1515:00 23:00 07:00 IntakeIntake Total 400 ml 50 ml 0 ml OutputOutput Total 440 ml 1260 ml 510 ml BalanceBalance -40 ml -1210 ml -510 ml Results/Medications Result Diagram: 05/30/18 0426 05/30/18 0426 Results 24 hrs Laboratory Tests Test 05/30/18 04:26 White Blood Count 7.2 Red Blood Count 4.15 L Hemoglobin 14.6 Hematocrit 45.3 Mean Corpuscular Volume 109.2 H Mean Corpuscular Hemoglobin 35.2 H Mean Corpuscular Hemoglobin Concent 32.2 Red Cell Distribution Width 16.0 H Platelet Count 48 L Mean Platelet Volume 12.5 H Immature Granulocytes % 0.400 Neutrophils % 89.3 H Segmented Neutrophils % (Manual) 91 H Band Neutrophils % (Manual) 6 H Lymphocytes % 4.8 L Lymphocytes % (Manual) 1 L Monocytes % 5.4 Eosinophils % 0.0 Basophils % 0.1 Basophils % (Manual) 2 Nucleated Red Blood Cells % 0.0 Immature Granulocytes # 0.030 Neutrophils # 6.4 Neutrophils # (Manual) 6.6 Band Neutrophils # 0.4 Lymphocytes (Manual) 0.0 L Lymphocytes # 0.4 L Monocytes # 0.4 Eosinophils # 0.0 Basophils # 0.0 Basophils # (Manual) 0.1 H Nucleated Red Blood Cells # 0.0 Platelet Estimate SIG DECREASED Poikilocytosis 1+ Anisocytosis 2+ Macrocytosis 2+ Sodium Level 150 H Potassium Level 3.7 Chloride Level 98 Carbon Dioxide Level 47 *H Anion Gap 5 Blood Urea Nitrogen 35 H Creatinine 0.68 Est Glomerular Filtrat Rate mL/min Glucose Level 152 Calcium Level 8.2 L Home Meds Active Scripts Albuterol Sulfate* (Proair HFA*) 8.5 Gm Hfa.aer.ad, 2 PUFF INH Q4H PRN for WHEEZING AND SOB, #1 INHALER Prov:NATI DREW MD 05/18/18 Acetaminophen* (Tylenol*) 325 Mg Tablet, 2 TAB PO Q8 PRN for PAIN AND OR ELEVATED TEMP, #20 TAB Prov:NATI DREW MD 05/18/18 Levofloxacin* (Levaquin*) 750 Mg Tablet, 750 MG PO DAILY for 7 Days, TAB Prov:NATI DREW MD 05/18/18 Pantoprazole* (Protonix*) 40 Mg Tablet.dr, 40 MG PO DAILY for 60 Days, TAB Prov:ZAKIYA WERNER 12/23/17 Levothyroxine Sodium* (Levothyroxine Sodium*) 125 Mcg Tablet, 125 MCG PO BEFORE BREAKFAST, #60 TAB Prov:ZAKIYA WERNER 12/23/17 Reported Medications Acetaminophen (MAPAP) 325 Mg Tablet, 325 MG PO, TAB 05/23/18 Ranitidine Hcl* (Ranitidine Hcl*) 75 Mg Tablet, 75 MG PO BID PRN for HEARTBURN, #60 TAB 05/23/18 Discontinued Reported Medications Ibuprofen* (Advil*) 200 Mg Capsule, 200 MG PO Q6H PRN for PAIN, CAP 12/15/17 Discontinued Scripts Inhaler, Assist Devices (Compact Space Chamber) 1 Each Spacer, EACH MC Q4H WHILE AWAKE PRN for COUGH, #1 Prov:NATI DREW MD 05/18/18 Medications Current Medications IV Flush (NS 3 ml) 3 ml PER PROTOCOL IV ; Start 05/23/18 at 16:00 Ondansetron HCl (Zofran Inj) 4 mg Q6H PRN IV NAUSEA/VOMITING; Start 05/23/18 at 16:00 Acetaminophen (Tylenol Tab) 650 mg Q6H PRN PO .PAIN 1-3 OR TEMP; Start 05/23/18 at 16:00 Enoxaparin Sodium (Lovenox) 30 mg DAILY SC Last administered on 05/28/18at 08:32; Admin Dose 30 MG; Start 05/24/18 at 09:00; Status Hold Albuterol (Ventolin Hfa) 2 puff Q4H PRN INH WHEEZING AND SOB; Start 05/23/18 at 21:00 Levothyroxine Sodium (Synthroid) 125 mcg BEFORE BREAKFAST PO Last administered on 05/29/18 08:40; Admin Dose 125 MCG; Start 05/24/18 at 07:00 Meropenem/Sodium Chloride 50 ml @ 100 mls/hr Q12 IVPB Last administered on 05/30/18 09:23; Admin Dose 100 MLS/HR; Start 05/24/18 at 15:30 Morphine Sulfate (morphine) 6 mg Q4H PRN PO SEVERE PAIN LEVEL 7-10; Start 05/24/18 at 23:00 Methylprednisolone Sodium Succinate (Solu-Medrol) 40 mg Q6 IV Last administered on 05/30/18 05:39; Admin Dose 40 MG; Start 05/25/18 at 12:00 Furosemide (Lasix) 40 mg BID DIURETICS IV Last administered on 05/30/18 05:39; Admin Dose 40 MG; Start 05/26/18 at 18:00 Famotidine (Pepcid Iv) 20 mg DAILY IV Last administered on 05/30/18 09:29; Admin Dose 20 MG; Start 05/28/18 at 09:00 Assessment/Plan Hospital Course (Demo Recall) 1. Congestive heart failure exacerbation with an echo from 2016 - preserved EF and had a mild to moderate aortic stenosis. Thus, possibly diastolic, acute on chronic. Better now, stable urine output. 2. Shortness of breath secondary to #1 - improved with Rx. 3. Tachycardia on admit. Sinus tachycardia, now improved.Rate controlled now. 4. Hypothyroidism - replace as needed. 5. Cirrhosis - avoid hepatotoxic meds. 6. Leukocytosis. 7. Anemia and thrombocytopenia - no active bleeding noted. 8. Coagulopathy. MACKENZIE LOPEZ MD May 30, 2018 13:24
[2018-05-30] MEDS: DEXTROSE 5% 1,000 ML IV SCH (16:28)
[2018-05-31] VITALS (21 sets, daily range): BP systolic 85–142; BP diastolic 37–55; PULSE 57–96; RESP 14–27
[2018-05-31] MEDS: DEXTROSE 5% 1,000 ML IV SCH ×2 (04:50→06:27)
[2018-05-31] MEDS: FUROSEMIDE 40 MG INJ IV SCH (06:14)
[2018-05-31] MEDS: METHYLPREDNISOLONE 40 MG INJ IV SCH ×2 (06:14→11:27)
[2018-05-31] MEDS: LEVOTHYROXINE 125 MCG TAB PO SCH (06:21)
[2018-05-31] MEDS: MEROPENEM 1 GM/50ML(PMX) 50 ML IVPB SCH (08:24)
[2018-05-31] MEDS: FAMOTIDINE 20 MG INJ IV SCH (08:24)
--- NOTE | 2018-05-31 09:30 | CONS ---
Assessment/Plan Assessment/Plan Hospital Course (Demo Recall) ID PROGRESS NOTE CURRENT ABX: DAY #8 => Merrem #8 s/p Levaquin 05/23/18 05/30/186 05/30/18 0426 24H INTERVAL SUMMARY * CHART REVIEWED => Patient opted in for comfort measures and will be transferring to HOSPICE care later today, she does not want intubation, nor aggressive medical interventions -- she is a Frail 82 yo F who is awake, alert responsive w/hypoxic respiratory failure currently on high flow supplemental O2 w/BIPAP PRN -- No fevers, VSS, generalized weakness noted * 05/29/18 CXR: Calcified atherosclerosis in the aorta. Stable extensive infiltrates in both lungs.Stable diffuse interstitial prominence in both lungs.Hypoinflated lungs. MICRO/OTHER * (-) MRSA Nares * 05/25/18 Urine (-) * 05/23/18 Urine (+)Mixed contaminants * 05/23/18 BCx (-) PHYSICAL EXAMINATION: GENERAL: Afebrile, VSS HEENT: AT, NC, anicteric NECK: Supple, trach midline CHEST: Equal chest rise bilaterally, without dyspnea on observation HEART: Pulse RRR ABDOMEN: Soft / NT EXTREMITIES: Warm, dry SKIN: No rash, no diaphoresis ID ASSESSMENT 82 yo F admit with: 1. Acute hypoxemic respiratory failure - BIPAP PRN 2. Pulmonary edema 3. Pneumonia - ASP PNA suspected 4. Mild to moderate aortic stenosis w/preserved LVEF systolic fx 5. Cirrhosis 6. Urinary tract infection => RESOLVED (-)MRSA Nares ABX ALLERGIES: KNDA INVASIVES: PIV CURRENT ABX: DAY #8 => Merrem #7 s/p Levaquin 05/23/18 ID RECOMMENDATIONS/PLAN: 1. She has received adequate coverage for concern PNA - plan was to DC ABX today, regardless of new plan for HOSPICE * Merrem DC'd 2. As patient is transferring to HOSPICE care today - ID team will sign off. * Thank you for allowing us to participate in the care of this pleasant lady and her family. * . . Consultation Date/Type/Reason Admit Date/Time May 23, 2018 at 14:40 Initial Consult Date Requesting Provider: GURMEET CAMPOS MD Date/Time of Note DATE: 05/31/18 TIME: 09:24 Exam/Review of Systems Exam Vitals Vital Signs Date Temp Pulse Resp B/P (MAP) Pulse Ox O2 O2 Flow FiO2 Time Delivery Rate 05/31/18 98.2 67 22 125/45 95 BIPAP 07:00 (71) 05/31/18 100 05:09 05/27/18 15.0 08:00 Intake and Output 05/30/18 05/30/18 05/31/18 1515:00 23:00 07:00 IntakeIntake Total 170 ml 610 ml 535 ml OutputOutput Total 800 ml 505 ml 375 ml BalanceBalance -630 ml 105 ml 160 ml Results Result Diagram: 05/30/18 0426 05/30/18 0426 Medications Medication Current Medications IV Flush (NS 3 ml) 3 ml PER PROTOCOL IV ; Start 05/23/18 at 16:00 Ondansetron HCl (Zofran Inj) 4 mg Q6H PRN IV NAUSEA/VOMITING; Start 05/23/18 at 16:00 Acetaminophen (Tylenol Tab) 650 mg Q6H PRN PO .PAIN 1-3 OR TEMP; Start 05/23/18 at 16:00 Enoxaparin Sodium (Lovenox) 30 mg DAILY SC Last administered on 05/28/18at 08:32; Admin Dose 30 MG; Start 05/24/18 at 09:00; Status Hold Albuterol (Ventolin Hfa) 2 puff Q4H PRN INH WHEEZING AND SOB; Start 05/23/18 at 21:00 Levothyroxine Sodium (Synthroid) 125 mcg BEFORE BREAKFAST PO Last administered on 05/29/18at 08:40; Admin Dose 125 MCG; Start 05/24/18 at 07:00 Meropenem/Sodium Chloride 50 ml @ 100 mls/hr Q12 IVPB Last administered on 05/31/18at 08:24; Admin Dose 100 MLS/HR; Start 05/24/18 at 15:30 Morphine Sulfate (morphine) 6 mg Q4H PRN PO SEVERE PAIN LEVEL 7-10; Start 05/24/18 at 23:00 Methylprednisolone Sodium Succinate (Solu-Medrol) 40 mg Q6 IV Last administered on 05/31/18at 06:14; Admin Dose 40 MG; Start 05/25/18 at 12:00 Furosemide (Lasix) 40 mg BID DIURETICS IV Last administered on 05/31/18at 06:14; Admin Dose 40 MG; Start 05/26/18 at 18:00 Famotidine (Pepcid Iv) 20 mg DAILY IV Last administered on 05/31/18at 08:24; Admin Dose 20 MG; Start 05/28/18 at 09:00 Dextrose 1,000 ml @ 75 mls/hr [id number] IV Last administered on 05/31/18at 06:27; Admin Dose 75 MLS/HR; Start 05/30/18 at 15:30 CHELITA RADFORD NP May 31, 2018 09:30
[2018-05-31] MEDS ORDERED: morphine 2 MG INJ IV STA (09:53)
[2018-05-31] MEDS ORDERED: LORAZEPAM 2 MG INJ IV ONE (10:00)
[2018-05-31] MEDS ORDERED: ACETAMINOPHEN 325 MG TAB PO PRN (10:00)
[2018-05-31] MEDS ORDERED: ACETAMINOPHEN 650 MG SUPP PR PRN (10:00)
--- NOTE | 2018-05-31 10:33 | CONS ---
Assessment/Plan Cardiology Heart Failure Type: Acute on Chronic Heart Failure Type: Diastolic Assessment/Plan Hospital Course (Demo Recall) IMPRESSION: 1. Congestive heart failure exacerbation with an echo from 2016, at that time revealing a preserved EF and had a mild to moderate aortic stenosis. Thus, diastolic, acute on chronic.- Echo again tis time with preserved EF. ? CHF so severe given NL EF ? ARDS/pulm fibrosis 2. Shortness of breath secondary to #1. 3. Tachycardia on admit. Sinus tachycardia, now improved. 4. Hypothyroidism. 5. Cirrhosis. 6. Leukocytosis. 7. Anemia and thrombocytopenia. 8. Coagulopathy. 9. anxiety Recc: -Continue lasix/care as indicated -To be made hospice care Consultation Date/Type/Reason Admit Date/Time May 23, 2018 at 14:40 Initial Consult Date 05/24/18 Type of Consult Cardiology Reason for Consultation CHF Requesting Provider: GURMEET CAMPOS MD Date/Time of Note DATE: 05/31/18 TIME: 10:31 Exam/Review of Systems Vital Signs Vitals Vital Signs Date Temp Pulse Resp B/P (MAP) Pulse Ox O2 O2 Flow FiO2 Time Delivery Rate 05/31/18 62 20 133/50 94 High Flow 10:00 (77) 05/31/18 98.2 07:00 05/31/18 100 05:09 05/27/18 15.0 08:00 Intake and Output 05/30/18 05/30/18 05/31/18 1515:00 23:00 07:00 IntakeIntake Total 170 ml 610 ml 535 ml OutputOutput Total 800 ml 505 ml 375 ml BalanceBalance -630 ml 105 ml 160 ml Exam Exam Review of Systems: CONSTITUTIONAL: No fevers, chills. PULMONARY: sob CARDIOVASCULAR: No chest pain/palpitations GASTROINTESTINAL: No nausea/vomiting. GENITOURINARY: No hematuria/dysuria. MUSCULOSKELETAL: No myagias/arthalgias. PSYCHIATRIC: The patient denies depression. NEUROLOGIC: No weakness Constitutional: other (sleeping) Psych: no complaints Head: normocephalic ENMT: mucosa pink and moist Neck: supple, jvd (9 cm water) Respiratory: diminished breath sounds (at bases/B) Cardiovascular: regular rate and rhythm Gastrointestinal: soft, non-tender Musculoskeletal: muscle tone (normal) Extremities: edema (none) Neurological: unresponsive Labs Result Diagram: 05/30/186 05/30/18 0426 Medications Medications Current Medications IV Flush (NS 3 ml) 3 ml PER PROTOCOL IV ; Start 05/23/18 at 16:00 Ondansetron HCl (Zofran Inj) 4 mg Q6H PRN IV NAUSEA/VOMITING; Start 05/23/18 at 16:00 Acetaminophen (Tylenol Tab) 650 mg Q6H PRN PO .PAIN 1-3 OR TEMP; Start 05/23/18 at 16:00 Enoxaparin Sodium (Lovenox) 30 mg DAILY SC Last administered on 05/28/18at 08:32; Admin Dose 30 MG; Start 05/24/18 at 09:00; Status Hold Albuterol (Ventolin Hfa) 2 puff Q4H PRN INH WHEEZING AND SOB; Start 05/23/18 at 21:00 Levothyroxine Sodium (Synthroid) 125 mcg BEFORE BREAKFAST PO Last administered on 05/29/18at 08:40; Admin Dose 125 MCG; Start 05/24/18 at 07:00 Morphine Sulfate (morphine) 6 mg Q4H PRN PO SEVERE PAIN LEVEL 7-10; Start 05/24/18 at 23:00 Methylprednisolone Sodium Succinate (Solu-Medrol) 40 mg Q6 IV Last administered on 05/31/18at 06:14; Admin Dose 40 MG; Start 05/25/18 at 12:00 Furosemide (Lasix) 40 mg BID DIURETICS IV Last administered on 05/31/18at 06:14; Admin Dose 40 MG; Start 05/26/18 at 18:00 Famotidine (Pepcid Iv) 20 mg DAILY IV Last administered on 05/31/18at 08:24; Admin Dose 20 MG; Start 05/28/18 at 09:00 Dextrose 1,000 ml @ 75 mls/hr [id number] IV Last administered on 05/31/18at 06:27; Admin Dose 75 MLS/HR; Start 05/30/18 at 15:30 Morphine Sulfate/ Sodium Chloride 100 ml @ 1 mls/hr TITRATE IV ; Start 05/31/18 at 11:30 Scopolamine (Transderm-Scop) 1 patch Q72H TRANSDERM ; Start 05/31/18 at 11:30 Atropine Sulfate (Atropine 1% Oph) 2 drop Q4 BOTH EYES ; Start 05/31/18 at 13:00 Acetaminophen (Tylenol Supp) 650 mg Q4H PRN [place] MILD PAIN(1-3) OR TEMP>38C; Start 05/31/18 at 10:00 Acetaminophen (Tylenol Tab) 650 mg Q4H PRN PO MILD PAIN(1-3)OR ELEVATED TEMP; Start 05/31/18 at 10:00 JOSE M ZENG May 31, 2018 10:33
[2018-05-31] MEDS ORDERED: morphine (DRIP) 100 MG/100 ML 100 ML IV SCH (11:30)
[2018-05-31] MEDS ORDERED: SCOPOLAMINE 1.5 MG PATCH TRANSDERM SCH (11:30)
[2018-05-31] MEDS: ATROPINE 1% 5 ML OPH BOTH EYES SCH ×3 (13:00→21:00)
--- NOTE | 2018-05-31 16:46 | PN ---
Date/Time of Note Date/Time of Note DATE: 05/31/18 TIME: 16:42 Assessment/Plan VTE Prophylaxis Risk score (from [facility] [place]0 risk: 11 SCD applied (from [facility] [place]): No SCD contraindicated: other Pharmacological prophylaxis: NA/contraindicated Pharm contraindication: other Lines/Catheters IV [facility]ter Type (from [facility]): Peripheral IV Central line still needed: Yes Urinary Cath still in place: Yes Reason Cath still needed: urinary retention Assessment/Plan Hospital Course Patient is made comfort care per family request, transitioning to hospice care. Assessment/Plan -Acute hypoxemic respiratory failure requiring BiPAP. Dr. Lepe is following in pulmonology consultation. -Septic shock. Continue antibiotics per ID. Dr. Akins is following in infection disease consultation. -Community-acquired pneumonia -CHF exacerbation. Continue Lasix monitor electrolytes. Dr. Alford is fol lowing in cardiology consultation. -Hypothyroidism, continue levothyroxine. -Liver cirrhosis Further recommendations based on clinical course. Plan of care discussed with Dr. Santiago. Result Diagram: 05/30/18 04205/30/18425 Exam/Review of Systems Exam Vitals Vital Signs Date Temp Pulse Resp B/P (MAP) Pulse Ox O2 O2 Flow FiO2 Time Delivery Rate 05/31/18 98.0 85 22 100/39 38 Nasal 16:00 (59) Cannula 05/31/18 2.0 12:00 05/31/18 100 05:09 Intake and Output 05/30/18 05/30/18 05/31/18 1515:00 23:00 07:00 IntakeIntake Total 170 ml 610 ml 535 ml OutputOutput Total 800 ml 505 ml 375 ml BalanceBalance -630 ml 105 ml 160 ml Medications Medication Current Medications IV Flush (NS 3 ml) 3 ml PER PROTOCOL IV ; Start 05/23/18 at 16:00 Acetaminophen (Tylenol Tab) 650 mg Q6H PRN PO .PAIN 1-3 OR TEMP; Start 05/23/18 at 16:00 Morphine Sulfate (morphine) 6 mg Q4H PRN PO SEVERE PAIN LEVEL 7-10; Start 05/24/18 at 23:00 Morphine Sulfate/ Sodium Chloride 100 ml @ 1 mls/hr TITRATE IV Last administered on 05/31/18at 11:26; Admin Dose 1 MLS/HR; Start 05/31/18 at 11:30 Scopolamine (Transderm-Scop) 1 patch Q72H TRANSDERM ; Start 05/31/18 at 11:30 Atropine Sulfate (Atropine 1% Oph) 2 drop Q4 BOTH EYES ; Start 05/31/18 at 13:00 Acetaminophen (Tylenol Supp) 650 mg Q4H PRN IN MILD PAIN(1-3) OR TEMP>38C; Start 05/31/18 at 10:00 Acetaminophen (Tylenol Tab) 650 mg Q4H PRN PO MILD PAIN(1-3)OR ELEVATED TEMP; Start 05/31/18 at 10:00 ZAKIYA WERNER May 31, 2018 16:46
[2018-05-31] MEDS ORDERED: ATROPINE 1% 5 ML OPH SL PRN (22:00)
--- NOTE | 2018-06-01 00:26 | HP ---
DATE OF ADMISSION: 05/23/2018 PRIMARY HOSPITAL DIAGNOSES: Acute respiratory failure secondary to pneumonia, comorbid congestive he art failure, hypothyroidism, and liver cirrhosis. CHIEF COMPLAINT AND HISTORY OF PRESENT ILLNESS: The patient is an 82-year-old female with a history of liver cirrhosis, most likely secondary to formal alcohol use, history of hypothyroidism, osteoarth ritis, coronary artery disease with CHF. The patient was brought into ER on 05/23/2018 because of sh ortness of breath which was getting progressively worse. The patient also was complaining of dizzine ss. The patient was seen in the ER and was noted to be hypoxemic. CT angiogram revealed extensive b ilateral ground glass opacification throughout the bilateral lungs, but no pulmonary embolism. The p atient also was noted to have leukocytosis and elevated lactic acid. The patient was diagnosed with sepsis due to pneumonia leading to acute respiratory failure. The patient was put on BiPAP and subse quently was switched to a high-flow nasal cannula. The patient could not be weaned off of high-flow nasal cannula and would desaturate as soon as attempts to wean her off high-flow nasal cannula were m vaibhav. The patient also became progressively weaker, has not been eating well for last several days. I called the patient's granddaughter, Negin Parsons, who is an ICU nurse in [place]. The patien t's condition was explained to her. She requested that patient be made no chest compressions or card ioversion but to continue with respiratory support with BiPAP and high-flow nasal cannula. Over the course of several days, patient still continued to decline and could not be weaned off and became pro gressively more lethargic and family members decided to make her a complete DNR and also requested co mfort care. The patient was referred to hospice and is being admitted under [facility] hospice at [facility]. The patient today did not have any fever or chills. No reported vomiting, no reported s eizure, no reported bleeding from any site. The patient did not have any acute skin rash. REVIEW OF SYSTEMS: Was limited due to patient's condition. PAST MEDICAL HISTORY: As stated above. Also significant for L4 compression fracture. PAST SURGICAL HISTORY: The patient is status post left total knee replacement, status post laparosco pic cholecystectomy, and status post right eye cataract repair. FAMILY HISTORY: Noncontributory. SOCIAL HISTORY: No smoking, history of alcohol abuse in the past. PHYSICAL EXAMINATION: GENERAL: The patient was lethargic. The patient was on high-flow oxygen and was saturating between 92% to 94%. VITAL SIGNS: Temperature 98, pulse 77, respirations 27, blood pressure 95/41. HEENT: No eye discharge or redness. Conjunctivae normal. Nose and ears normal. Oropharynx examina tion was deferred. NECK: No mass, no JVD. CHEST: Decreased entry at the bases. No use of accessory muscles. CARDIOVASCULAR: S1, S2 normal, no murmur, gallop, or rub. ABDOMEN: Soft, nontender. Bowel sounds plus. EXTREMITIES: Trace edema. NEUROLOGIC: The patient is lethargic but arousable. Attempts to follow simple commands. LABORATORY DATA: WBC of 7.2, hemoglobin 14.6, platelets 48. Sodium 150, potassium 3.7, BUN 35, crea tinine 0.6, glucose 152. Chest x-ray done yesterday revealed patchy infiltrate throughout both lungs . IMPRESSION: 1. Acute respiratory failure due to pneumonia. 2. Hypernatremia. 3. Decompensated diastolic heart failure. PLAN: The patient was admitted under [facility] level of care. The patient was started on IV morphine drip at 1 mg an hour which will be titrated up for comfort care. The patient will also be started on atr opine drops for secretions, IV Ativan 1 mg q.4 p.r.n. for anxiety. Prior to switching her from high- flow oxygen to regular nasal cannula, patient was given IV morphine 2 mg and IV Ativan 1 mg to preven t air hunger. The patient remains terminally ill. Plan of care discussed with the desk nurse, Keshia, and [facility] staff nurse, Marisol. Will continue to optimize comfort care. All other me dications except comfort care will be discontinued. Dictated By: GURMEET DELCID/DARION Conf#: [id number] DID#: [id number] CC: TAMMY WORLEY MD;*EndCC*
--- NOTE | 2018-06-01 17:10 | DES ---
DATE OF ADMISSION: 05/23/2018 DATE OF : 06/01/2018 CAUSE OF : Acute respiratory failure due to healthcare-acquired pneumonia, comorbid diastolic h eart failure. REASON FOR ADMISSION: The patient was an 82-year-old female with a history of hypothyroidism, osteoa rthritis, coronary artery disease with diastolic heart failure, also has history of liver cirrhosis. The patient was brought into ER on 05/23/2018, because of increasing shortness of breath which was p rogressively getting worse. The patient was seen in the ER and was noted to be in acute hypoxemic, h ypercarbic respiratory failure. The patient underwent CT pulmonary angiogram which revealed extensiv e pneumonia. The patient was treated with broad spectrum IV antibiotic and was also seen by Dr. Óscar sun from infectious disease standpoint, Dr. Lepe from pulmonary standpoint. The patient was also s een by Dr. Montalvo from cardiac standpoint. The patient ruled out for myocardial infarction. The pat ient, during most of her stay at hospital was on either BiPAP or high flow oxygen, could not be weane d off and continues to have declining in her overall condition. The patient also became progressivel y more lethargic. I spoke with the family members and initially she was made no cardiac compressions and no defibrillation and subsequently family made a complete DNR and requested comfort care only. HOSPITAL COURSE: The patient was admitted under [facility] level of care on 05/31/2018 and was started on m orphine drip at 1 mg an hour. The patient also was started on atropine drops for secretions, IV Ativ an p.r.n. for anxiety, Zofran for vomiting and Tylenol for fever. The patient continued to decline a nd became progressively more nonverbal to tactile and verbal command. All other medications were dis continued except comfort care. The patient, this morning was noted to be unresponsive to all stimuli . Pupils were fixed and dilated. There were no heart sounds or respirations. The patient was prono unced at 0753 on 06/01/2018. Family was at bedside. Dictated By: GURMEET CAMPOS MD AB/NTS Conf#: [id number] DID#: [id number] CC: TAMMY WORLEY MD;*EndCC*
== END 2018-06-01 07:53 | disposition expired | DRG 871 ==
LOC: E/R 11:04 → 6WM 14:40 → ICU 05-25 16:57 → 5EC 05-31 18:10
PROVIDERS: ADMIT Internal Medicine; ATTEND Internal Medicine
PROC: 5A09357 Assistance with Respiratory Ventilation, Less than 24 Consecutive Hours, Continuous Positive Airway Pressure (ICD-10-PCS; principal; 2018-05-23)
PROC: 4A133R1 Monitoring of Arterial Saturation, Peripheral, Percutaneous Approach (ICD-10-PCS; 2018-05-23)
PROC: 5A09457 Assistance with Respiratory Ventilation, 24-96 Consecutive Hours, Continuous Positive Airway Pressure (ICD-10-PCS; 2018-05-28)
DX: A41.9 Sepsis, unspecified organism (principal); R65.21 Severe sepsis with septic shock; J96.01 Acute respiratory failure with hypoxia; I50.33 Acute on chronic diastolic (congestive) heart failure; J18.9 Pneumonia, unspecified organism; J96.02 Acute respiratory failure with hypercapnia; D68.9 Coagulation defect, unspecified; E87.0 Hyperosmolality and hypernatremia; N39.0 Urinary tract infection, site not specified; D64.9 Anemia, unspecified; D69.6 Thrombocytopenia, unspecified; Z66 Do not resuscitate; R62.7 Adult failure to thrive; E03.9 Hypothyroidism, unspecified; I25.10 Atherosclerotic heart disease of native coronary artery without angina pectoris; I35.0 Nonrheumatic aortic (valve) stenosis; F41.9 Anxiety disorder, unspecified; E87.6 Hypokalemia; K74.60 Unspecified cirrhosis of liver; Z88.0 Allergy status to penicillin; Z96.652 Presence of left artificial knee joint; Z90.49 Acquired absence of other specified parts of digestive tract
CPT/HCPCS: 36415; 36600; 71045; 71275; 80048; 80053; 80061; 81001; 82803; 83036; 83605; 83735; 83880; 84100; 84443; 84484; 85025; 85610; 85730; 87040; 87081; 87086; 92526; 92610; 93005; 93306; 94660; 96374; J1650; J1940; J1956; J2060; J2185; J2270; J2920; J3480; J7030; J7070; Q9967